=== PATIENT | female | born 1930 | race Caucasian/White ===

== ENCOUNTER 2016-09-01 19:50 | Inpatient (IN) | payer MEDICARE ==
[~2016-09-01] VITALS: Ht 157.5 cm; Wt 70.8 kg
[~2016-09-01 19:50] MED LIST: ASPI-482 PO; ASPI325T4 PO; DOCU-27 PO; Diltiazem Hcl PO; FERR-26 PO
[2016-09-01] MEDS ORDERED: IV NORMAL SALINE 500ML BAG 500 ML IV ONE (20:30)
[2016-09-01 20:56] LABS: BASO # 0.1 x10^3/uL (0.0-0.2); BASO % 2 % (0-3); EOS % 3 % (0-3); LYMPH # 0.6 x10^3/uL (1.0-4.8); LYMPH % 13 % (24-48); MEAN CORPUSCULAR HEMOGLOBIN 15 pg (25-35); MEAN CORPUSCULAR HGB CONC 28 g/dL (31-37); MEAN CORPUSCULAR VOLUME 53 fL (79-100); MONO % 16 % (0-9); NEUT % 66 % (31-73); PLATELET COUNT 287 x10^3/uL (140-400); RED BLOOD COUNT 2.34 x10^6/uL (3.50-5.40); RED CELL DISTRIBUTION WIDTH 20.4 % (11.5-14.5); WHITE BLOOD COUNT 4.5 x10^3/uL (4.0-11.0)
[2016-09-01 21:00] LABS: HEMATOCRIT 12.5 % (36.0-47.0); HEMOGLOBIN 3.4 g/dL (12.0-15.5)
[2016-09-01 21:04] LABS: CALCIUM 8.7 mg/dL (8.5-10.1); CREATININE 0.9 mg/dL (0.6-1.0); GFR 59.4; POTASSIUM 3.7 mmol/L (3.5-5.1)
[2016-09-01 21:10] LABS: ALBUMIN 3.1 g/dL (3.4-5.0); TOTAL BILIRUBIN 0.8 mg/dL (0.2-1.0); TOTAL PROTEIN 6.2 g/dL (6.4-8.2)
[2016-09-01] MEDS ORDERED: ACETAMINOPHEN 325 MG TABLET. PO PRN (21:15)
[2016-09-01] MEDS ORDERED: ONDANSETRON PF 4 MG/2 ML VIAL. IV PRN (21:15)
--- NOTE | 2016-09-01 21:29 | PHYS DOC ---
Past Medical History Past Medical History: Anemia Past Surgical History: Other Additional Past Surgical Histo: BILATERAL EYE CORRECTION Alcohol Use: None Drug Use: None Adult General Chief Complaint Chief Complaint: WEAKNESS/GENERALIZED HPI HPI 86-year-old female presents with several day history of progressive weakness and shortness of breath and dyspnea on exertion. She states the last couple days she just has not even felt like getting out of bed. She denies any melena or hematemesis. She denies any fever chills sweats cough or congestion. She is not had any chest pain nausea or vomiting.] Review of Systems Review of Systems Constitutional: Denies fever or chills [] Eyes: Denies change in visual acuity, redness, or eye pain [] HENT: Denies nasal congestion or sore throat [] Respiratory: Per history of present illness [] Cardiovascular: No additional information not addressed in HPI [] GI: Denies abdominal pain, nausea, vomiting, bloody stools or diarrhea [] : Denies dysuria or hematuria [] Musculoskeletal: Denies back pain or joint pain [] Integument: Denies rash or skin lesions [] Neurologic: Denies headache, focal weakness or sensory changes [] Endocrine: Denies polyuria or polydipsia [] Current Medications Current Medications Current Medications Medications (Trade) Dose Ordered Sig/Tu Start Time Stop Time Status Last Admin Dose Admin Acetaminophen (Tylenol) 650 mg PRN Q4HRS PRN 09/01/16 21:15 09/02/16 21:14 Ondansetron HCl (Zofran) 4 mg PRN Q8HRS PRN 09/01/16 21:15 09/02/16 21:14 Sodium Chloride (Iv Sodium Chloride 0.9% 500ml Bag) 500 ml @ 500 mls/hr 1X ONCE 09/01/16 20:30 09/01/16 21:29 09/01/16 20:38 500 MLS/HR Allergies Allergies Allergies Coded Allergies Type Severity Reaction Last Updated Verified No Known Drug Allergies 02/13/15 No Physical Exam Physical Exam Constitutional: Frail very pale, no acute distress, non-toxic appearance. [] HENT: Normocephalic, atraumatic, bilateral external ears normal, oropharynx moist, no oral exudates, nose normal. [] Eyes: PERRLA, EOMI, conjunctiva normal, no discharge. [] Neck: Normal range of motion, no tenderness, supple, no stridor. [] Cardiovascular:Heart rate regular rhythm, no murmur [] Lungs & Thorax: Bilateral breath sounds clear to auscultation [] Abdomen: Bowel sounds normal, soft, no tenderness, no masses, no pulsatile masses. [] Skin: Warm, dry, no erythema, no rash. [] Back: No tenderness, no CVA tenderness. [] Extremities: No tenderness, no cyanosis, no clubbing, ROM intact, no edema. [] Neurologic: Alert and oriented X 3, normal motor function, normal sensory function, no focal deficits noted. [] Psychologic: Depressed affect. [] Current Patient Data Vital Signs Vital Signs Date Time Temp Pulse Resp B/P Pulse Ox O2 Delivery O2 Flow Rate FiO2 09/01/16 20:04 97.9 100 16 134/58 100 Room Air 97.9 Lab Values Laboratory Tests Test 09/01/16 20:48 White Blood Count 4.5x10^3/uL (4.0-11.0) Red Blood Count 2.34x10^6/uL (3.50-5.40) L Hemoglobin 3.4g/dL (12.0-15.5) *L Hematocrit 12.5% (36.0-47.0) *L Mean Corpuscular Volume 53fL (79-100) L Mean Corpuscular Hemoglobin 15pg (25-35) L Mean Corpuscular Hemoglobin Concent 28g/dL (31-37) L Red Cell Distribution Width 20.4% (11.5-14.5) H Platelet Count 287x10^3/uL (140-400) Neutrophils (%) (Auto) 66% (31-73) Lymphocytes (%) (Auto) 13% (24-48) L Monocytes (%) (Auto) 16% (0-9) H Eosinophils (%) (Auto) 3% (0-3) Basophils (%) (Auto) 2% (0-3) Neutrophils # (Auto) 3.0x10^3uL (1.8-7.7) Lymphocytes # (Auto) 0.6x10^3/uL (1.0-4.8) L Monocytes # (Auto) 0.7x10^3/uL (0.0-1.1) Eosinophils # (Auto) 0.1x10^3/uL (0.0-0.7) Basophils # (Auto) 0.1x10^3/uL (0.0-0.2) Platelet Estimate Pending Sodium Level 144mmol/L (136-145) Potassium Level 3.7mmol/L (3.5-5.1) Chloride Level 104mmol/L (98-107) Carbon Dioxide Level 30mmol/L (21-32) Anion Gap 10 (6-14) Blood Urea Nitrogen 27mg/dL (7-20) H Creatinine 0.9mg/dL (0.6-1.0) Estimated GFR (Cockcroft-Gault) 59.4 BUN/Creatinine Ratio 30 (6-20) H Glucose Level 161mg/dL (70-99) H Calcium Level 8.7mg/dL (8.5-10.1) Total Bilirubin 0.8mg/dL (0.2-1.0) Aspartate Amino Transferase (AST) 9U/L (15-37) L Alanine Aminotransferase (ALT) 11U/L (14-59) L Alkaline Phosphatase 73U/L (46-116) Troponin I Quantitative 0.029ng/mL (0.000-0.055) Total Protein 6.2g/dL (6.4-8.2) L Albumin 3.1g/dL (3.4-5.0) L Albumin/Globulin Ratio 1.0 (1.0-1.7) Lipase 173U/L (73-393) Laboratory Tests 09/01/16 20:48 Laboratory Tests 09/01/16 20:48 EKG EKG [] Radiology/Procedures Radiology/Procedures [] Course & Med Decision Making Course & Med Decision Making Pertinent Labs and Imaging studies reviewed. (See chart for details) [ED course: Evaluation reveals an 86-year-old very pale female with a critically low hemoglobin and hematocrit. She was type and crossed for 2 units of packed red blood cells in the department and transfusion consents were signed. I spoke with Dr. Bruce who agreed to accept her for admission to the hospital to workup this critical hemoglobin and hematocrit. We will consult GI.. ] Dragon Disclaimer Dragon Disclaimer This electronic medical record was generated, in whole or in part, using a voice recognition dictation system. Departure Departure Impression: Primary Impression: Symptomatic anemia Disposition: ADMITTED INPATIENT Admitting Physician: Other (Reusch) Condition: GUARDED Referrals: UNKNOWN PCP NAME (PCP) CARON BOB DO Sep 01, 2016 21:29
[2016-09-01 21:50] LABS: PLT ESTIMATE ADEQUATE (ADEQUATE)
[2016-09-01 21:51] LABS: ANISOCYTOSIS MOD; HYPOCHROMIA MARKED; MICROCYTOSIS MARKED; OVALOCYTES FEW
[2016-09-01 21:52] LABS: POLYCHROMASIA SLIGHT
[2016-09-01 22:30] VITALS: BP 139/48
[2016-09-01 23:06] VITALS: BP 136/50
--- NOTE | 2016-09-01 23:37 | ACF ---
Admission Forms Criteria ANEMIA, IRON DEFICIENCY OR UNSPECIFIED Clinical Indications for Inpatient Care (Place 'X' for any and all applicable criteria): Admission is indicated for ANY ONE of the following(1)(2)(3)(4)(5)(6)(7): [X] I. Inpatient admission required rather than observation care (Also use Anemia, Iron Deficiency or Unspecified: Observation Care guideline as appropriate) because of ANY ONE of the following: [] a) Hemodynamic instability that is severe or persistent [] b) Active bleeding that cannot be rapidly controlled [X] c) CVS symptoms (i.e., dyspnea, chest pain, heart failure) that are severe or persistent [] d) Neurologic symptoms (i.e., cognitive impairment, recurrent syncope or near syncope) that are severe or persistent [] e) Cardiac arrhythmias of immediate concern [] f) Acute peripheral ischemia (e.g., pulseless, cool, mottled, or cyanotic extremity) [] g) High-risk low platelet count [] h) Acute renal failure [] i) Ongoing transfusion for blood loss (greater than 2 units) [] j) IV fluid to replace significant ongoing (eg, >24 hours) losses (> 3 L/m2 per day) [] k) Pulmonary artery catheter monitoring [] l) Supplemental oxygen or respiratory treatments for over 24 hours that are performable only in acute inpatient setting [] m) Immediate inpatient surgery [] n) Other condition, treatment or monitoring requiring inpatient admission [] II Active massive hemorrhage [] III. Active hemolysis with rapidly progressive anemia [A](6) Extended stay beyond goal length of stay may be needed for (17)(18) []a) Diagnosed cause of anemia requiring longer hospitalization (eg, active GI bleeding, immune hemolysis requiring electrophoresis, complications of malignancy requiring acute care []b) Continued emergent anemia indicators (23) []c) Transfusion reactions []d) Associated leukopenia or thrombocytopenia needing inpatient care []e) Active comorbidities (eg, renal failure, heart failure) The original [facility] Care Guidelines content created by [facility] Care Guidelines has been revised. The portions of the content which have been revised are identified through the use of italic text or in bold. [facility] Guidelines has neither reviewed nor approved the modified material. All other unmodified content is copyright [facility] Care Guidelines. Please see references footnoted in the original [facility] edition 2016 Admission Criteria Met?: Yes YONIS MAHARAJ Sep 01, 2016 23:37
[2016-09-02] VITALS (17 sets, daily range): BP systolic 119–155; BP diastolic 50–69
[2016-09-02 01:56] LABS: BILIRUBIN,URINE NEGATIVE (NEG); GLUCOSE,URINE NEGATIVE (NEG); NITRITE,URINE NEGATIVE (NEG); PROTEIN,URINE NEGATIVE (NEG-TRACE)
[2016-09-02 02:18] LABS: BACTERIA,URINE 0 /HPF (0-FEW); RBC,URINE OCC /HPF (0-2); SQUAMOUS EPITHELIAL CELL,UR FEW /LPF
--- NOTE | 2016-09-02 06:17 | EKG ---
[facility] [address] [place] [id number] Test Date: 2016-09-01 Test Time: 19:56:28 Pat Name: JUAN SILVA Department: Room: 2 Gender: F [employer] Staff: : [id number] Requested By: CARON BOB Order Number: [id number] Reading MD: Charo Strange Measurements Intervals [place] Rate: 87 P: WA: QRS: 8 QRSD: 78 T: -138 QT: 328 QTc: 395 Interpretive Statements ATRIAL FIBRILLATION LOW LIMB LEAD VOLTAGE ST & T ABNORMALITY, CONSIDER ANTEROLATERAL ISCHEMIA OR LEFT VENTRICULAR STRAIN T ABNORMALITY IN INFEROLATERAL LEADS Electronically Signed On 09-03-2016 21:40:47 CDT by Charo Strange
[2016-09-02 08:07] LABS: BASO # 0.1 x10^3/uL (0.0-0.2); BASO % 3 % (0-3); EOS % 5 % (0-3); LYMPH % 20 % (24-48); MEAN CORPUSCULAR HEMOGLOBIN 20 pg (25-35); MEAN CORPUSCULAR HGB CONC 31 g/dL (31-37); MEAN CORPUSCULAR VOLUME 64 fL (79-100); MONO % 18 % (0-9); NEUT % 55 % (31-73); PLATELET COUNT 252 x10^3/uL (140-400); RED BLOOD COUNT 3.15 x10^6/uL (3.50-5.40); RED CELL DISTRIBUTION WIDTH 32.2 % (11.5-14.5)
[2016-09-02 08:15] LABS: HEMATOCRIT 20.2 % (36.0-47.0); HEMOGLOBIN 6.2 g/dL (12.0-15.5)
--- NOTE | 2016-09-02 08:28 | RAD ---
Indication: Weakness. Technique: Upright portable chest radiograph was obtained and compared to a study from February 07, 2015. Findings: There has been development of a small to medium right pleural effusion with associated atelectasis or less likely infiltrate. There are may also be a pleural effusion on the left, may be loculated, small to medium in size. Please see prior CT chest from February 07, 2015. The heart is enlarged. There is no definite heart failure. Medium to large hiatal hernia is noted. There are mild degenerative changes in the shoulders, greater on the right. Leads overlie the patient. Impression: 1. Development of a small to medium sized right pleural effusion since prior exam. 2. Apparent loculated effusion on the left, similar in appearance to 2015. 3. Cardiomegaly.
--- NOTE | 2016-09-02 09:23 | PDOC2 ---
GI CONSULT Reason For Consult: Anemia HPI: HPI: 86 y/o female evaluated in ER for weakness and SOA/exertional dyspnea. Found to have Hgb 3.4, now 6.2 s/p transfusion. Denies GI complaints including n/v, decreased appetite, abd pain, diarrhea, constipation, hematochezia, or melena. Denies any home medications. She's a bit of a suspect historian it seems. Previous EGD by Dr. Aragon for anemia in 01/2015 showed hiatal hernia. She declined colonoscopy at that time but per office records has had previous colonoscopies w/ diverticulosis and internal hemorrhoids. Iron low in 2015 (w/ normal retic, B12, folate). PMH: PMH: from chart - A Fib, hypothyroidism, DVT, IVC filter, eye surgery FH: Family History: No pertinent hx Social History: Smoke: No ALCOHOL: none Drugs: None ROS: GEN: Denies fevers, chills, sweats HEENT: Denies blurred vision, sore throat CV: Denies chest pain RESP: +SOA GI: Per HPI : Denies hematuria, dysuria ENDO: Denies weight changes NEURO: Denies confusion, dizziness MSK: +weakness SKIN: Denies jaundice, pruritus VItals: Vitals: Vital Signs Date Time Temp Pulse Resp B/P Pulse Ox O2 Delivery O2 Flow Rate FiO2 09/02/16 07:15 96.6 71 16 155/52 95 Room Air 96.6 Labs: Labs: Laboratory Tests Test 09/01/16 20:48 09/02/16 01:15 09/02/16 06:50 White Blood Count 4.5x10^3/uL (4.0-11.0) 5.0x10^3/uL (4.0-11.0) Red Blood Count 2.34x10^6/uL (3.50-5.40) 3.15x10^6/uL (3.50-5.40) Hemoglobin 3.4g/dL (12.0-15.5) 6.2g/dL (12.0-15.5) Hematocrit 12.5% (36.0-47.0) 20.2% (36.0-47.0) Mean Corpuscular Volume 53fL (79-100) 64fL (79-100) Mean Corpuscular Hemoglobin 15pg (25-35) 20pg (25-35) Mean Corpuscular Hemoglobin Concent 28g/dL (31-37) 31g/dL (31-37) Red Cell Distribution Width 20.4% (11.5-14.5) 32.2% (11.5-14.5) Platelet Count 287x10^3/uL (140-400) 252x10^3/uL (140-400) Neutrophils (%) (Auto) 66% (31-73) 55% (31-73) Lymphocytes (%) (Auto) 13% (24-48) 20% (24-48) Monocytes (%) (Auto) 16% (0-9) 18% (0-9) Eosinophils (%) (Auto) 3% (0-3) 5% (0-3) Basophils (%) (Auto) 2% (0-3) 3% (0-3) Neutrophils # (Auto) 3.0x10^3uL (1.8-7.7) 2.8x10^3uL (1.8-7.7) Lymphocytes # (Auto) 0.6x10^3/uL (1.0-4.8) 1.0x10^3/uL (1.0-4.8) Monocytes # (Auto) 0.7x10^3/uL (0.0-1.1) 0.9x10^3/uL (0.0-1.1) Eosinophils # (Auto) 0.1x10^3/uL (0.0-0.7) 0.3x10^3/uL (0.0-0.7) Basophils # (Auto) 0.1x10^3/uL (0.0-0.2) 0.1x10^3/uL (0.0-0.2) Platelet Estimate Adequate (ADEQUATE) Polychromasia Slight Hypochromasia Marked Anisocytosis Mod Microcytosis Marked Macrocytosis Slight Ovalocytes Few Sodium Level 144mmol/L (136-145) Potassium Level 3.7mmol/L (3.5-5.1) Chloride Level 104mmol/L (98-107) Carbon Dioxide Level 30mmol/L (21-32) Anion Gap 10 (6-14) Blood Urea Nitrogen 27mg/dL (7-20) Creatinine 0.9mg/dL (0.6-1.0) Estimated GFR (Cockcroft-Gault) 59.4 BUN/Creatinine Ratio 30 (6-20) Glucose Level 161mg/dL (70-99) Calcium Level 8.7mg/dL (8.5-10.1) Total Bilirubin 0.8mg/dL (0.2-1.0) Aspartate Amino Transf (AST/SGOT) 9U/L (15-37) Alanine Aminotransferase (ALT/SGPT) 11U/L (14-59) Alkaline Phosphatase 73U/L (46-116) Troponin I Quantitative 0.029ng/mL (0.000-0.055) Total Protein 6.2g/dL (6.4-8.2) Albumin 3.1g/dL (3.4-5.0) Albumin/Globulin Ratio 1.0 (1.0-1.7) Lipase 173U/L (73-393) Urine Collection Type Unknown Urine Color Yellow Urine Clarity Clear Urine pH 5.0 Urine Specific [place] 1.015 Urine Protein Negativemg/dL (NEG-TRACE) Urine Glucose (UA) Negativemg/dL (NEG) Urine Ketones (Stick) Negativemg/dL (NEG) Urine Blood Small (NEG) Urine Nitrite Negative (NEG) Urine Bilirubin Negative (NEG) Urine Urobilinogen Dipstick 1.0mg/dL (0.2 mg/dL) Urine Leukocyte Esterase Small (NEG) Urine RBC Occ/HPF (0-2) Urine WBC 1-4/HPF (0-4) Urine Squamous Epithelial Cells Few/LPF Urine Bacteria 0/HPF (0-FEW) Urine Hyaline Casts Few/HPF Urine Mucus Mod/LPF Allergies: Coded Allergies: No Known Drug Allergies (Unverified , 02/13/15) Medications: Current Medications Medications (Trade) Dose Ordered Sig/Tu Route PRN Reason Start Time Stop Time Status Last Admin Dose Admin Sodium Chloride (Iv Sodium Chloride 0.9% 500ml Bag) 500 ml @ 500 mls/hr 1X ONCE IV 09/01/16 20:30 09/01/16 21:29 DC 09/01/16 20:38 Imaging: Imaging: CXR 09/01/16 Impression: 1. Development of a small to medium sized right pleural effusion since prior exam. 2. Apparent loculated effusion on the left, similar in appearance to 2015. 3. Cardiomegaly. CT A/P 2015 IMPRESSION: 1. Small amount of hyperdense material in the stomach. Please see above discussion. If there is clinical suspicion for bleed, correlation with endoscopy may be useful. 2. Porcelain gallbladder. 3. Mild sigmoid colon diverticulosis, no evidence of diverticulitis. 4. Other ancillary findings as above. PE: GEN: NAD, sitting up in bed eating breakfast HEENT: atraumatic LUNGS: clear anteriorly HEART: S1S2 ABD: NABS, S/ND/NT, no masses EXTREMITY: No edema SKIN: No rashes, no jaundice NEURO/PSYCH: probably a little confused, poor historian A/P: A/P: Anemia -admitting Hgb 3.4 -previous EGD and colonoscopy unrevealing -denies obvious bleeding ?dementia -- ?AVMs Empiric PPI. Will check bleeding scan and additional labs. D/w RN - another transfusion planned. PORTILLO BARNARD Sep 02, 2016 09:23
--- NOTE | 2016-09-02 09:57 | PDOC1 ---
History and Physical Past Surgical History Past Surgical History: Cataract Removal Family History Family History: Other Social History Smoke: No ALCOHOL: none Drugs: None Current Problem List Problem List Problems Medical Problems: (1) Symptomatic anemia Status: Acute Current Medications Current Medications Current Medications Medications (Trade) Dose Ordered Sig/Tu Start Time Stop Time Status Last Admin Dose Admin Acetaminophen (Tylenol) 650 mg PRN Q4HRS PRN 09/01/16 21:15 09/02/16 21:14 Ondansetron HCl (Zofran) 4 mg PRN Q8HRS PRN 09/01/16 21:15 09/02/16 21:14 Pantoprazole Sodium (Protonix) 40 mg DAILYAC 09/02/16 10:30 Sodium Chloride (Iv Sodium Chloride 0.9% 500ml Bag) 500 ml @ 500 mls/hr 1X ONCE 09/01/16 20:30 09/01/16 21:29 DC 09/01/16 20:38 500 MLS/HR Allergies Allergies Allergies Coded Allergies Type Severity Reaction Last Updated Verified No Known Drug Allergies 02/13/15 No ROS Review of System CONSTITUTIONAL: No fever or chills, weakness. EYES: No recent changes SKIN: No rash or itching CARDIOVASCULAR: sob RESPIRATORY: SOB GASTROINTESTINAL: No nausea, vomiting or abdominal pain NEUROLOGICAL: No headaches or weakness ENDOCRINE: No cold or heat intolerance GENITOURINARY: No urgency or frequency of urination MUSCULOSKELETAL: No back pain or joint pain LYMPHATICS: No enlarged lymph nodes PSYCHIATRIC: No anxiety or depression Physical Exam Physical Exam GEN.: apparent distress. Alert and oriented HEENT: Head is normocephalic, atraumatic NECK: Supple. no jvd LUNGS: Clear to auscultation. normal airflow anterior HEART: Tachycardia, systolic murmur ABDOMEN: Soft, nontender. Positive bowel sounds. EXTREMITIES: Without any cyanosis. NEUROLOGIC: Normal speech, normal tone, not able to understand severity of her symptoms PSYCHIATRIC: SKIN: No visible skin lesions Vitals Vitals Vital Signs Date Time Temp Pulse Resp B/P Pulse Ox O2 Delivery O2 Flow Rate FiO2 09/02/16 07:15 96.6 71 16 155/52 95 Room Air 96.6 Labs Labs Laboratory Tests Test 09/01/16 20:48 09/02/16 01:15 09/02/16 06:50 White Blood Count 4.5x10^3/uL (4.0-11.0) 5.0x10^3/uL (4.0-11.0) Red Blood Count 2.34x10^6/uL (3.50-5.40) 3.15x10^6/uL (3.50-5.40) Hemoglobin 3.4g/dL (12.0-15.5) 6.2g/dL (12.0-15.5) Hematocrit 12.5% (36.0-47.0) 20.2% (36.0-47.0) Mean Corpuscular Volume 53fL (79-100) 64fL (79-100) Mean Corpuscular Hemoglobin 15pg (25-35) 20pg (25-35) Mean Corpuscular Hemoglobin Concent 28g/dL (31-37) 31g/dL (31-37) Red Cell Distribution Width 20.4% (11.5-14.5) 32.2% (11.5-14.5) Platelet Count 287x10^3/uL (140-400) 252x10^3/uL (140-400) Neutrophils (%) (Auto) 66% (31-73) 55% (31-73) Lymphocytes (%) (Auto) 13% (24-48) 20% (24-48) Monocytes (%) (Auto) 16% (0-9) 18% (0-9) Eosinophils (%) (Auto) 3% (0-3) 5% (0-3) Basophils (%) (Auto) 2% (0-3) 3% (0-3) Neutrophils # (Auto) 3.0x10^3uL (1.8-7.7) 2.8x10^3uL (1.8-7.7) Lymphocytes # (Auto) 0.6x10^3/uL (1.0-4.8) 1.0x10^3/uL (1.0-4.8) Monocytes # (Auto) 0.7x10^3/uL (0.0-1.1) 0.9x10^3/uL (0.0-1.1) Eosinophils # (Auto) 0.1x10^3/uL (0.0-0.7) 0.3x10^3/uL (0.0-0.7) Basophils # (Auto) 0.1x10^3/uL (0.0-0.2) 0.1x10^3/uL (0.0-0.2) Platelet Estimate Adequate (ADEQUATE) Polychromasia Slight Hypochromasia Marked Anisocytosis Mod Microcytosis Marked Macrocytosis Slight Ovalocytes Few Sodium Level 144mmol/L (136-145) Potassium Level 3.7mmol/L (3.5-5.1) Chloride Level 104mmol/L (98-107) Carbon Dioxide Level 30mmol/L (21-32) Anion Gap 10 (6-14) Blood Urea Nitrogen 27mg/dL (7-20) Creatinine 0.9mg/dL (0.6-1.0) Estimated GFR (Cockcroft-Gault) 59.4 BUN/Creatinine Ratio 30 (6-20) Glucose Level 161mg/dL (70-99) Calcium Level 8.7mg/dL (8.5-10.1) Total Bilirubin 0.8mg/dL (0.2-1.0) Aspartate Amino Transf (AST/SGOT) 9U/L (15-37) Alanine Aminotransferase (ALT/SGPT) 11U/L (14-59) Alkaline Phosphatase 73U/L (46-116) Troponin I Quantitative 0.029ng/mL (0.000-0.055) Total Protein 6.2g/dL (6.4-8.2) Albumin 3.1g/dL (3.4-5.0) Albumin/Globulin Ratio 1.0 (1.0-1.7) Lipase 173U/L (73-393) Urine Collection Type Unknown Urine Color Yellow Urine Clarity Clear Urine pH 5.0 Urine Specific [place] 1.015 Urine Protein Negativemg/dL (NEG-TRACE) Urine Glucose (UA) Negativemg/dL (NEG) Urine Ketones (Stick) Negativemg/dL (NEG) Urine Blood Small (NEG) Urine Nitrite Negative (NEG) Urine Bilirubin Negative (NEG) Urine Urobilinogen Dipstick 1.0mg/dL (0.2 mg/dL) Urine Leukocyte Esterase Small (NEG) Urine RBC Occ/HPF (0-2) Urine WBC 1-4/HPF (0-4) Urine Squamous Epithelial Cells Few/LPF Urine Bacteria 0/HPF (0-FEW) Urine Hyaline Casts Few/HPF Urine Mucus Mod/LPF Laboratory Tests Test 09/01/16 20:48 09/02/16 01:15 09/02/16 06:50 White Blood Count 4.5x10^3/uL (4.0-11.0) 5.0x10^3/uL (4.0-11.0) Red Blood Count 2.34x10^6/uL (3.50-5.40) 3.15x10^6/uL (3.50-5.40) Hemoglobin 3.4g/dL (12.0-15.5) 6.2g/dL (12.0-15.5) Hematocrit 12.5% (36.0-47.0) 20.2% (36.0-47.0) Mean Corpuscular Volume 53fL (79-100) 64fL (79-100) Mean Corpuscular Hemoglobin 15pg (25-35) 20pg (25-35) Mean Corpuscular Hemoglobin Concent 28g/dL (31-37) 31g/dL (31-37) Red Cell Distribution Width 20.4% (11.5-14.5) 32.2% (11.5-14.5) Platelet Count 287x10^3/uL (140-400) 252x10^3/uL (140-400) Neutrophils (%) (Auto) 66% (31-73) 55% (31-73) Lymphocytes (%) (Auto) 13% (24-48) 20% (24-48) Monocytes (%) (Auto) 16% (0-9) 18% (0-9) Eosinophils (%) (Auto) 3% (0-3) 5% (0-3) Basophils (%) (Auto) 2% (0-3) 3% (0-3) Neutrophils # (Auto) 3.0x10^3uL (1.8-7.7) 2.8x10^3uL (1.8-7.7) Lymphocytes # (Auto) 0.6x10^3/uL (1.0-4.8) 1.0x10^3/uL (1.0-4.8) Monocytes # (Auto) 0.7x10^3/uL (0.0-1.1) 0.9x10^3/uL (0.0-1.1) Eosinophils # (Auto) 0.1x10^3/uL (0.0-0.7) 0.3x10^3/uL (0.0-0.7) Basophils # (Auto) 0.1x10^3/uL (0.0-0.2) 0.1x10^3/uL (0.0-0.2) Platelet Estimate Adequate (ADEQUATE) Polychromasia Slight Hypochromasia Marked Anisocytosis Mod Microcytosis Marked Macrocytosis Slight Ovalocytes Few Sodium Level 144mmol/L (136-145) Potassium Level 3.7mmol/L (3.5-5.1) Chloride Level 104mmol/L (98-107) Carbon Dioxide Level 30mmol/L (21-32) Anion Gap 10 (6-14) Blood Urea Nitrogen 27mg/dL (7-20) Creatinine 0.9mg/dL (0.6-1.0) Estimated GFR (Cockcroft-Gault) 59.4 BUN/Creatinine Ratio 30 (6-20) Glucose Level 161mg/dL (70-99) Calcium Level 8.7mg/dL (8.5-10.1) Total Bilirubin 0.8mg/dL (0.2-1.0) Aspartate Amino Transf (AST/SGOT) 9U/L (15-37) Alanine Aminotransferase (ALT/SGPT) 11U/L (14-59) Alkaline Phosphatase 73U/L (46-116) Troponin I Quantitative 0.029ng/mL (0.000-0.055) Total Protein 6.2g/dL (6.4-8.2) Albumin 3.1g/dL (3.4-5.0) Albumin/Globulin Ratio 1.0 (1.0-1.7) Lipase 173U/L (73-393) Urine Collection Type Unknown Urine Color Yellow Urine Clarity Clear Urine pH 5.0 Urine Specific [place] 1.015 Urine Protein Negativemg/dL (NEG-TRACE) Urine Glucose (UA) Negativemg/dL (NEG) Urine Ketones (Stick) Negativemg/dL (NEG) Urine Blood Small (NEG) Urine Nitrite Negative (NEG) Urine Bilirubin Negative (NEG) Urine Urobilinogen Dipstick 1.0mg/dL (0.2 mg/dL) Urine Leukocyte Esterase Small (NEG) Urine RBC Occ/HPF (0-2) Urine WBC 1-4/HPF (0-4) Urine Squamous Epithelial Cells Few/LPF Urine Bacteria 0/HPF (0-FEW) Urine Hyaline Casts Few/HPF Urine Mucus Mod/LPF VTE Prophylaxis Ordered VTE Prophylaxis Devices: No VTE Pharmacological Prophylaxi: No TANNA MIR MD Sep 02, 2016 09:57
[2016-09-02 10:08] LABS: % SAT IRON 6 % (15-34); IRON,SERUM 26 ug/dL (50-170)
[2016-09-02 11:49] LABS: FOLATE 9.17 ng/ml (3.2-20.0)
--- NOTE | 2016-09-02 12:32 | PDOC2 ---
MARY BLUE SR. LOGISTICS ANALYST 09/02/16 1232: CARDIAC CONSULT DATE OF CONSULT Date of Consult DATE: 09/02/16 TIME: 12:32 REASON FOR CONSULT Reason for Consult: v tach HISTORY OF PRESENT ILLNESS HISTORY OF PRESENT ILLNESS Ms Bradley is an 86 year old female with history of atrial fibrillation, and severe anemia. She is a poor historian, reporting negative medical history. Past history is obtained from the medical record. She presented to the ED with complaints of progressive dyspnea and fatigue over the last several months. On evaluation it was noted that her Hgb was 3.4. She was admitted for evaluation and treatment. Telemetry monitoring revealed a 17 beat run of NSVT so consult was called. She denies any chest discomfort. She reports dyspnea is getting better since getting blood. She denies congestive symptoms. She also denies any medical problems and states she takes no home medications. PAST MEDICAL HISTORY Past Medical History atrial fibrillation, diastolic heart failure, DVT, severe anemia, iron deficiency, hypothyroidism She apparently refused any endoscopies during her admission in 2014 for similar complaints. PAST SURGICAL HISTORY Past Surgical History cataracts, IVC filter FAMILY HISTORY Family History non contributory due to age SOCIAL HISTORY Social History non smoker, no illicit drugs or significant ETOH CURRENT MEDICATIONS CURRENT MEDICATIONS Current Medications Medications (Trade) Dose Ordered Sig/Tu Route PRN Reason Start Time Stop Time Status Last Admin Dose Admin Sodium Chloride (Iv Sodium Chloride 0.9% 500ml Bag) 500 ml @ 500 mls/hr 1X ONCE IV 09/01/16 20:30 09/01/16 21:29 DC 09/01/16 20:38 ALLERGIES ALLERGIES: Coded Allergies: No Known Drug Allergies (Unverified , 02/13/15) ROS Review of System as per HPI, otherwise she denies complaints. PHYSICAL EXAM General: Alert, Cooperative, mild distress HEENT: Atraumatic, EOMI Lungs: Other (decreased with occasional exp wheeze) Heart: Other (irregular rate and rhythm without gallops, clicks or rubs. No obvious murmurs. ) Abdomen: Normal bowel sounds, Soft, No tenderness Extremities: No cyanosis, Normal pulses Neuro: Normal speech Psych/Mental Status: Mood NL VITALS VITALS Vital Signs Date Time Temp Pulse Resp B/P Pulse Ox O2 Delivery O2 Flow Rate FiO2 09/02/16 11:40 96.7 77 19 125/58 96.7 09/02/16 11:07 97 Room Air LABS Lab: Laboratory Tests Test 09/01/16 20:48 09/02/16 01:15 09/02/16 06:50 White Blood Count 4.5x10^3/uL (4.0-11.0) 5.0x10^3/uL (4.0-11.0) Red Blood Count 2.34x10^6/uL (3.50-5.40) 3.15x10^6/uL (3.50-5.40) Hemoglobin 3.4g/dL (12.0-15.5) 6.2g/dL (12.0-15.5) Hematocrit 12.5% (36.0-47.0) 20.2% (36.0-47.0) Mean Corpuscular Volume 53fL (79-100) 64fL (79-100) Mean Corpuscular Hemoglobin 15pg (25-35) 20pg (25-35) Mean Corpuscular Hemoglobin Concent 28g/dL (31-37) 31g/dL (31-37) Red Cell Distribution Width 20.4% (11.5-14.5) 32.2% (11.5-14.5) Platelet Count 287x10^3/uL (140-400) 252x10^3/uL (140-400) Neutrophils (%) (Auto) 66% (31-73) 55% (31-73) Lymphocytes (%) (Auto) 13% (24-48) 20% (24-48) Monocytes (%) (Auto) 16% (0-9) 18% (0-9) Eosinophils (%) (Auto) 3% (0-3) 5% (0-3) Basophils (%) (Auto) 2% (0-3) 3% (0-3) Neutrophils # (Auto) 3.0x10^3uL (1.8-7.7) 2.8x10^3uL (1.8-7.7) Lymphocytes # (Auto) 0.6x10^3/uL (1.0-4.8) 1.0x10^3/uL (1.0-4.8) Monocytes # (Auto) 0.7x10^3/uL (0.0-1.1) 0.9x10^3/uL (0.0-1.1) Eosinophils # (Auto) 0.1x10^3/uL (0.0-0.7) 0.3x10^3/uL (0.0-0.7) Basophils # (Auto) 0.1x10^3/uL (0.0-0.2) 0.1x10^3/uL (0.0-0.2) Platelet Estimate Adequate (ADEQUATE) Polychromasia Slight Hypochromasia Marked Anisocytosis Mod Microcytosis Marked Macrocytosis Slight Ovalocytes Few Sodium Level 144mmol/L (136-145) Potassium Level 3.7mmol/L (3.5-5.1) Chloride Level 104mmol/L (98-107) Carbon Dioxide Level 30mmol/L (21-32) Anion Gap 10 (6-14) Blood Urea Nitrogen 27mg/dL (7-20) Creatinine 0.9mg/dL (0.6-1.0) Estimated GFR (Cockcroft-Gault) 59.4 BUN/Creatinine Ratio 30 (6-20) Glucose Level 161mg/dL (70-99) Calcium Level 8.7mg/dL (8.5-10.1) Total Bilirubin 0.8mg/dL (0.2-1.0) Aspartate Amino Transf (AST/SGOT) 9U/L (15-37) Alanine Aminotransferase (ALT/SGPT) 11U/L (14-59) Alkaline Phosphatase 73U/L (46-116) Troponin I Quantitative 0.029ng/mL (0.000-0.055) Total Protein 6.2g/dL (6.4-8.2) Albumin 3.1g/dL (3.4-5.0) Albumin/Globulin Ratio 1.0 (1.0-1.7) Lipase 173U/L (73-393) Urine Collection Type Unknown Urine Color Yellow Urine Clarity Clear Urine pH 5.0 Urine Specific [place] 1.015 Urine Protein Negativemg/dL (NEG-TRACE) Urine Glucose (UA) Negativemg/dL (NEG) Urine Ketones (Stick) Negativemg/dL (NEG) Urine Blood Small (NEG) Urine Nitrite Negative (NEG) Urine Bilirubin Negative (NEG) Urine Urobilinogen Dipstick 1.0mg/dL (0.2 mg/dL) Urine Leukocyte Esterase Small (NEG) Urine RBC Occ/HPF (0-2) Urine WBC 1-4/HPF (0-4) Urine Squamous Epithelial Cells Few/LPF Urine Bacteria 0/HPF (0-FEW) Urine Hyaline Casts Few/HPF Urine Mucus Mod/LPF Reticulocyte Count (auto) 2.1% (0.5-2.5) Iron Level 26ug/dL (50-170) Total Iron Binding Capacity 429ug/dL (250-450) Iron Saturation 6% (15-34) Vitamin B12 Level 348pg/mL (247-911) Serum Folate 9.17ng/ml (3.2-20.0) IMAGES IMAGES cxr - Impression: 1. Development of a small to medium sized right pleural effusion since prior exam. 2. Apparent loculated effusion on the left, similar in appearance to 2015. 3. Cardiomegaly. EKG EKG unavailable Tele - atrial fibrillation with CVR, 17 beats WCT, prob NSVT, 1 episode ECHOCARDIOGRAM ECHOCARDIOGRAM 02/09/15 The left ventricular systolic function is normal. The ejection fraction is estimated at 55%. There is normal LV segmental wall motion. The left atrium is mildly dilated. Doppler and Color Flow revealed trace aortic regurgitation. Doppler and Color-flow revealed mild to moderate mitral regurgitation. Doppler and Color Flow revealed moderate tricuspid regurgitation. There is mild pulmonary hypertension. The PA pressure was estimated at 44 mmHg. There is no evidence of significant pericardial effusion. ASSESSMENT/PLAN ASSESSMENT/PLAN 1. NSVT - likely secondary to profound anemia. LV function normal by echo in Jan 2015. Will repeat. Continue to monitor and hgb correction per PCP/GI. Check Mg and repeat K+. 2. chronic atrial fibrillation, rate controlled. poor anticoagulation candidate. 3. profound anemia - receiving PRBCs. Consider IV lasix after units. 4. prior DVT - s/p IVC filter Problems: KADEN HARP MD 09/02/16 9831: CARDIAC CONSULT ALLERGIES ALLERGIES: Coded Allergies: No Known Drug Allergies (Unverified , 02/13/15) ASSESSMENT/PLAN ASSESSMENT/PLAN Pt. seen and examined. Agree with above [employer] MACHINE HELPER note. 86 y.o with profound anemia. normal cardiac exam. labs reviewed, hgb improving with PRBCs Pt. has fatigue, no chest pain. NSVT is likely secondary. Will check echo prior to DC Will follow peripherally. thanks for consult. Problems: MARY BLUE APRN Sep 02, 2016 12:32 KADEN HARP MD Sep 02, 2016 22:48
[2016-09-02] MEDS: PANTOPRAZOLE 40 MG TABLET. PO SCH (12:56)
--- NOTE | 2016-09-02 15:22 | RAD ---
Radionuclide GI bleeding scan, 09/02/2016: History: Low hemoglobin The study was performed utilizing 31 mCi of technetium 99m and a labeled red blood cell technique. Imaging obtained out to one hour showed no abnormal accumulation of activity in the abdomen or pelvis to suggest active bleeding. IMPRESSION: Negative radionuclide GI bleeding scan
--- NOTE | 2016-09-02 15:26 | PDOC ---
Provider Note Provider Note Onc consult dictated- [id number] Severe microcytic anemia with iron def since 2014, melena per pt- Consider GI source, repeat endoscopies. IV iron ordered. Hemoglobin electrophoresis ordered as well. Doubt underlying bone marrow d/f given nml WBC, plt, chronicity. CONNOR SANFORD DO Sep 02, 2016 15:26
[2016-09-02] MEDS ORDERED: IRON SUCROSE COMPLEX 500 MG in IV NORMAL SALINE 250ML 250 ML IV ONE (16:00)
[2016-09-02 17:34] LABS: MAGNESIUM 1.9 mg/dL (1.8-2.4); POTASSIUM 3.9 mmol/L (3.5-5.1)
--- NOTE | 2016-09-03 02:43 | CONS ---
DATE OF CONSULTATION: 09/02/2016 HEMATOLOGY CONSULTATION REFERRING PROVIDER: Dr. Dumont. REASON FOR CONSULTATION: Anemia. HISTORY OF PRESENT ILLNESS: The patient is an 86-year-old female who presented to the hospital on the 09/01/2016 with severe anemia, hemoglobin 3.4. She has been transfused 3 units of blood with a rise in her hemoglobin to 6.2. In review of our medical record 2 years ago in 01/2015, she presented with severe anemia, hemoglobin of 4.0. Per review of the GI notes, she underwent endoscopy, which was unremarkable at that time. She states that she does eat a variety of fruits and vegetables and meats. She is not chronically on oral iron. She presented with severe weakness, dizziness, fatigue. She has noted melanotic stools, but cannot give me an exact duration of time. Her symptoms are improved after undergoing transfusion yesterday. MCV noted to be low at 53. Iron studies also return low. B12 and folic acid are normal. Reticulocyte count 2.1. PAST MEDICAL HISTORY: Atrial fibrillation, hiatal hernia, significant anemia in 2014. Per chart review she has had a DVT but she denies this or IC filter placement. PAST SURGICAL HISTORY: Per chart review, IVC filter replacement. She states that she has only had eye surgery as a child. FAMILY HISTORY: Noncontributory with her advanced age. SOCIAL HISTORY: No tobacco, alcohol or drug use. Lives with her son. ALLERGIES: No known drug allergies. CURRENT MEDICATIONS: Pantoprazole, Tylenol, and Zofran. REVIEW OF SYSTEMS: Ten point review of systems completed and unremarkable with the exception of that mentioned in the HPI. PHYSICAL EXAMINATION: VITAL SIGNS: Temperature 97.9, pulse 73, respiratory rate 24, blood pressure 133/62, 97% O2 on room air. GENERAL: She is alert and oriented. She appears very fatigued. She is in no distress at this time, but lays very calmly without any movement. HEENT: Extraocular muscles are intact. Sclerae are without icterus. Mucous membranes are dry. CARDIOVASCULAR: Heart is regular in rhythm and rate. LUNGS: Clear to auscultation bilaterally. ABDOMEN: Soft, nontender. EXTREMITIES: 1+ edema bilateral lower extremities. NEUROLOGIC: No focal cranial deficits. IMAGING AND LABS: Pertinent lab findings thus far reviewed as above. Chest x-ray showed cardiomegaly, small right pleural effusions and an unchanged left loculated effusion, which has been present since 2015. ASSESSMENT AND PLAN: The patient is an 86-year-old female with the following medical problems: 1. Chronic microcytic anemia since 2015 with ongoing iron deficiency anemia. Her MCV is quite impressive so I will also draw a hemoglobin electrophoresis to see if she has any thalassemia traits or other etiologies which could decrease both her hemoglobin and MCV baseline. GI has been consulted. Today, the patient is more alert and she states that she has had melanotic stools for unknown length of time. Though she had an unremarkable colonoscopy/EGD per review of GI notes in 2015, I believe it would likely be important to consider repeating this study given the severity of her anemia. I do not believe she has an underlying bone marrow disorder given the microcytic nature with obvious low iron level. Her WBC and platelet count are also normal. I have added on haptoglobin, hepatitis panel and TSH. I have ordered 500 mg of Venofer for both today and tomorrow. She would ideally be discharged on oral iron if she can tolerate it. Thank you for allowing me to participate in her care. I discussed this information with GI physician respiratory assistant, Nga Truong. CONNOR SANFORD DO DR: BRANDEN/jen JOB#: [id number] / [id number] STACY
[2016-09-03 03:52] VITALS: BP 142/69
[2016-09-03 07:00] VITALS: BP 141/61
[2016-09-03] MEDS: PANTOPRAZOLE 40 MG TABLET. PO SCH (07:30)
--- NOTE | 2016-09-03 08:41 | HP ---
ADMIT DATE: 09/01/2016 CHIEF COMPLAINT: Shortness of breath. HISTORY OF PRESENT ILLNESS: An 86-year-old female patient with a prior history of DVT, AFib, and severe anemia, iron deficient, who presented to the ER with complaints of shortness of breath, which has been there for a few weeks, progressively getting worse. Upon arrival to the ER, her hemoglobin was 3.4. I did review her old records, the patient had severe anemia in the past. She received 2 units of PRBC by the time I saw her and the patient says that her symptoms have been improving; however, she still has some shortness of breath. She denies any hematemesis, hemoptysis, hematochezia, or any lower GI bleeding. The patient is a poor historian and most of the history is obtained from the old records. No family members available. PAST MEDICAL HISTORY: AFib; congestive heart failure, diastolic; DVT; severe anemia; iron deficiency and hypothyroidism. PAST SURGICAL HISTORY: IVC filter placement. FAMILY HISTORY: No anemia in the family. SOCIAL HISTORY: Lives with her son. No smoking, no alcohol, and no drug abuse. ALLERGIES: NKDA. REVIEW OF SYSTEMS: Please see my electronic H and P. PHYSICAL EXAMINATION: Please see my electronic H and P. LABORATORY DATA: Sodium 144, potassium 3.7, chloride 104, carbon dioxide 30, anion gap 10, BUN is 27, creatinine is 1.9, calcium is 161, total bilirubin is 0.8, AST is 9, ALT is 11, alkaline phosphatase 73, and troponin 0.29. Hematology: WBC is 4.5, RBC 2.34, hemoglobin is 3.4, hematocrit 12.5, platelets 287, MCV is 53, MCH is 15, and MCHC 28. Hemoglobin improved to 6.2 with transfusion. Urine clarity is clear, pH is 5.0, specific gravity 1.015 and ketones negative, nitrites negative, and bilirubin negative. IMAGING STUDIES: Chest x-ray: [id number]-sized right pleural effusion, apparent loculated pleural effusion in the left, cardiomegaly. ASSESSMENT AND PLAN: 1. Acute, severe symptomatic anemia, [id number]. 2. Nonsustained ventricular tachycardia. 3. Chronic atrial fibrillation. 4. Prior history of deep venous thrombosis. 5. Physical debility. PLAN: 1. She has been admitted to the hospital for blood transfusions. She received 2 units and we will order two more units of PRBC. 2. We will also order iron profile. 3. The patient declined to have colonoscopy and EGD. She was followed by Dr. Aragon in the past. I will consult Gastroenterology, awaiting their recommendations. 4. Consult Hematology/Oncology for further workup. Iron profile has been ordered. 5. Questionable malignancy given her age is a possible option. 6. Physical therapy and occupational therapy. 7. Gastroenterology has been considering a GI bleed scan. 8. Monitor hemoglobin closely. 9. Cardiology consultation has been placed. Continue telemetry. The patient had mild tachycardia attributed to severe anemia. 10. Prognosis is guarded. TANNA MIR MD DR: ALEXIS/jen JOB#: [id number] / [id number] TIANAD
--- NOTE | 2016-09-03 10:33 | PDOC ---
PROGRESS NOTES Chief Complaint Chief Complaint 1. Acute, severe symptomatic anemia, [id number]. 2. Nonsustained ventricular tachycardia. 3. Chronic atrial fibrillation. 4. Prior history of deep venous thrombosis. 5. Physical debility. Plan hemoglobin improved with Transfusion Pt declined to have endoscopies, [id number] Follow up with PCP and Dr Lisa Sanchez. Vitals Vitals Vital Signs Date Time Temp Pulse Resp B/P Pulse Ox O2 Delivery O2 Flow Rate FiO2 09/03/16 07:00 97.8 77 16 141/61 92 Room Air 97.8 09/03/16 03:52 95.0 Physical Exam General: Alert, Oriented X3, Cooperative, mild distress Heart: Normal S1, Normal S2, Other Abdomen: Normal bowel sounds, Soft, No tenderness Extremities: No cyanosis, Normal pulses Assessment and Plan Assessmemt and Plan Problems Medical Problems: (1) Symptomatic anemia Status: Acute Problems: Comment Review of Relevant I have reviewed the following items lavern (where applicable) has been applied. Labs Laboratory Tests Test 09/01/16 20:48 09/02/16 01:15 09/02/16 06:50 White Blood Count 4.5x10^3/uL (4.0-11.0) 5.0x10^3/uL (4.0-11.0) Red Blood Count 2.34x10^6/uL (3.50-5.40) 3.15x10^6/uL (3.50-5.40) Hemoglobin 3.4g/dL (12.0-15.5) 6.2g/dL (12.0-15.5) Hematocrit 12.5% (36.0-47.0) 20.2% (36.0-47.0) Mean Corpuscular Volume 53fL (79-100) 64fL (79-100) Mean Corpuscular Hemoglobin 15pg (25-35) 20pg (25-35) Mean Corpuscular Hemoglobin Concent 28g/dL (31-37) 31g/dL (31-37) Red Cell Distribution Width 20.4% (11.5-14.5) 32.2% (11.5-14.5) Platelet Count 287x10^3/uL (140-400) 252x10^3/uL (140-400) Neutrophils (%) (Auto) 66% (31-73) 55% (31-73) Lymphocytes (%) (Auto) 13% (24-48) 20% (24-48) Monocytes (%) (Auto) 16% (0-9) 18% (0-9) Eosinophils (%) (Auto) 3% (0-3) 5% (0-3) Basophils (%) (Auto) 2% (0-3) 3% (0-3) Neutrophils # (Auto) 3.0x10^3uL (1.8-7.7) 2.8x10^3uL (1.8-7.7) Lymphocytes # (Auto) 0.6x10^3/uL (1.0-4.8) 1.0x10^3/uL (1.0-4.8) Monocytes # (Auto) 0.7x10^3/uL (0.0-1.1) 0.9x10^3/uL (0.0-1.1) Eosinophils # (Auto) 0.1x10^3/uL (0.0-0.7) 0.3x10^3/uL (0.0-0.7) Basophils # (Auto) 0.1x10^3/uL (0.0-0.2) 0.1x10^3/uL (0.0-0.2) Platelet Estimate Adequate (ADEQUATE) Polychromasia Slight Hypochromasia Marked Anisocytosis Mod Microcytosis Marked Macrocytosis Slight Ovalocytes Few Sodium Level 144mmol/L (136-145) Potassium Level 3.7mmol/L (3.5-5.1) 3.9mmol/L (3.5-5.1) Chloride Level 104mmol/L (98-107) Carbon Dioxide Level 30mmol/L (21-32) Anion Gap 10 (6-14) Blood Urea Nitrogen 27mg/dL (7-20) Creatinine 0.9mg/dL (0.6-1.0) Estimated GFR (Cockcroft-Gault) 59.4 BUN/Creatinine Ratio 30 (6-20) Glucose Level 161mg/dL (70-99) Calcium Level 8.7mg/dL (8.5-10.1) Total Bilirubin 0.8mg/dL (0.2-1.0) Aspartate Amino Transf (AST/SGOT) 9U/L (15-37) Alanine Aminotransferase (ALT/SGPT) 11U/L (14-59) Alkaline Phosphatase 73U/L (46-116) Troponin I Quantitative 0.029ng/mL (0.000-0.055) Total Protein 6.2g/dL (6.4-8.2) Albumin 3.1g/dL (3.4-5.0) Albumin/Globulin Ratio 1.0 (1.0-1.7) Lipase 173U/L (73-393) Urine Collection Type Unknown Urine Color Yellow Urine Clarity Clear Urine pH 5.0 Urine Specific [place] 1.015 Urine Protein Negativemg/dL (NEG-TRACE) Urine Glucose (UA) Negativemg/dL (NEG) Urine Ketones (Stick) Negativemg/dL (NEG) Urine Blood Small (NEG) Urine Nitrite Negative (NEG) Urine Bilirubin Negative (NEG) Urine Urobilinogen Dipstick 1.0mg/dL (0.2 mg/dL) Urine Leukocyte Esterase Small (NEG) Urine RBC Occ/HPF (0-2) Urine WBC 1-4/HPF (0-4) Urine Squamous Epithelial Cells Few/LPF Urine Bacteria 0/HPF (0-FEW) Urine Hyaline Casts Few/HPF Urine Mucus Mod/LPF Reticulocyte Count (auto) 2.1% (0.5-2.5) Magnesium Level 1.9mg/dL (1.8-2.4) Iron Level 26ug/dL (50-170) Total Iron Binding Capacity 429ug/dL (250-450) Iron Saturation 6% (15-34) Vitamin B12 Level 348pg/mL (247-911) Serum Folate 9.17ng/ml (3.2-20.0) Thyroid Stimulating Hormone (TSH) 3.540uIU/mL (0.358-3.74) Medications Current Medications Sodium Chloride (Iv Sodium Chloride 0.9% 500ml Bag) 500 ml @ 500 mls/hr 1X ONCE IV Last administered on 09/01/16t 20:38; Start 09/01/16 at 20:30; Stop at 21:29; Status DC Ondansetron HCl (Zofran) 4 mg PRN Q8HRS PRN IV NAUSEA/VOMITING; Start 09/01/16 at 21:15; Stop 09/02/16 at 21:14; Status DC Acetaminophen (Tylenol) 650 mg PRN Q4HRS PRN PO FEVER; Start 09/01/16 at 21:15 ; Stop 09/02/16 at 21:14; Status DC Pantoprazole Sodium 40 mg 40 mg DAILYAC PO Last administered on 09/03/16 07:30 ; Start 09/02/16 at 10:30 Iron Sucrose 500 mg/Sodium Chloride 275 ml @ 78.571 mls/ hr 1X ONCE IV Last administered on 09/02/16t 16:13; Start 09/02/16 at 16:00; Stop 09/02/16 at 19:29 ; Status DC Iron Sucrose/ Sodium Chloride (Venofer/Iv Sodium Chloride 0.9% 250ml) 275 ml @ 78.571 mls/ hr 1X ONCE IV ; Start 09/03/16 at 16:00; Stop 09/03/16 at 19:29 Active Scripts Active Aspir 81 (Aspirin) 81 Mg Tablet.dr 1 Tab PO DAILY Ferrous Sulfate 325 Mg Tablet 1 Tab PO BID [Diltiazem Hcl] 120 MG Cap.er.24h 120 Mg PO DAILY Colace (Docusate Sodium) 100 Mg Capsule 100 Mg PO DAILY Vitals/I & O Vital Sign - Last 24 Hours 09/02/16 09/02/16 09/02/16 09/02/16 11:07 11:08 11:23 11:40 Temp 97.5 97.5 97.7 96.7 97.5 97.5 97.7 96.7 Pulse 79 79 82 77 Resp B/P 129/62 129/62 119/63 125/58 Pulse Ox 97 O2 Delivery Room Air 09/02/16 09/02/16 09/02/16 09/02/16 12:38 13:43 15:15 19:15 Temp 97.3 97.9 96.3 99.5 97.3 97.9 96.3 99.5 Pulse 82 73 76 77 Resp 18 B/P 142/67 133/62 144/65 143/56 Pulse Ox 96 92 O2 Delivery Room Air Room Air 09/02/16 09/02/16 09/03/16 09/03/16 20:00 22:57 03:52 07:00 Temp 98.8 97.9 97.8 98.8 97.9 97.8 Pulse 87 95 77 Resp 24 22 16 B/P 146/69 142/69 141/61 Pulse Ox 93 92 O2 Delivery Room Air Room Air Room Air Room Air O2 Flow Rate 95.0 Intake and Output 09/02/16 09/02/16 09/03/16 15:00 23:00 07:00 Intake Total 1040 ml 360 ml 100 ml Balance 1040 ml 360 ml 100 ml TANNA MIR MD Sep 03, 2016 10:33
[2016-09-03 11:00] VITALS: BP 138/70
--- NOTE | 2016-09-03 11:01 | PDOC ---
G I PROGRESS NOTE Reason for Follow-up Chronic blood loss anemia Subjective No further bleeding Physical Exam Lungs decreased BS CV S1 S2 ABD +BS, soft, nontender Review of Relevant I have reviewed the following items lavern (where applicable) has been applied. Labs Laboratory Tests Test 09/01/16 20:48 09/02/16 01:15 09/02/16 06:50 White Blood Count 4.5x10^3/uL (4.0-11.0) 5.0x10^3/uL (4.0-11.0) Red Blood Count 2.34x10^6/uL (3.50-5.40) 3.15x10^6/uL (3.50-5.40) Hemoglobin 3.4g/dL (12.0-15.5) 6.2g/dL (12.0-15.5) Hematocrit 12.5% (36.0-47.0) 20.2% (36.0-47.0) Mean Corpuscular Volume 53fL (79-100) 64fL (79-100) Mean Corpuscular Hemoglobin 15pg (25-35) 20pg (25-35) Mean Corpuscular Hemoglobin Concent 28g/dL (31-37) 31g/dL (31-37) Red Cell Distribution Width 20.4% (11.5-14.5) 32.2% (11.5-14.5) Platelet Count 287x10^3/uL (140-400) 252x10^3/uL (140-400) Neutrophils (%) (Auto) 66% (31-73) 55% (31-73) Lymphocytes (%) (Auto) 13% (24-48) 20% (24-48) Monocytes (%) (Auto) 16% (0-9) 18% (0-9) Eosinophils (%) (Auto) 3% (0-3) 5% (0-3) Basophils (%) (Auto) 2% (0-3) 3% (0-3) Neutrophils # (Auto) 3.0x10^3uL (1.8-7.7) 2.8x10^3uL (1.8-7.7) Lymphocytes # (Auto) 0.6x10^3/uL (1.0-4.8) 1.0x10^3/uL (1.0-4.8) Monocytes # (Auto) 0.7x10^3/uL (0.0-1.1) 0.9x10^3/uL (0.0-1.1) Eosinophils # (Auto) 0.1x10^3/uL (0.0-0.7) 0.3x10^3/uL (0.0-0.7) Basophils # (Auto) 0.1x10^3/uL (0.0-0.2) 0.1x10^3/uL (0.0-0.2) Platelet Estimate Adequate (ADEQUATE) Polychromasia Slight Hypochromasia Marked Anisocytosis Mod Microcytosis Marked Macrocytosis Slight Ovalocytes Few Sodium Level 144mmol/L (136-145) Potassium Level 3.7mmol/L (3.5-5.1) 3.9mmol/L (3.5-5.1) Chloride Level 104mmol/L (98-107) Carbon Dioxide Level 30mmol/L (21-32) Anion Gap 10 (6-14) Blood Urea Nitrogen 27mg/dL (7-20) Creatinine 0.9mg/dL (0.6-1.0) Estimated GFR (Cockcroft-Gault) 59.4 BUN/Creatinine Ratio 30 (6-20) Glucose Level 161mg/dL (70-99) Calcium Level 8.7mg/dL (8.5-10.1) Total Bilirubin 0.8mg/dL (0.2-1.0) Aspartate Amino Transf (AST/SGOT) 9U/L (15-37) Alanine Aminotransferase (ALT/SGPT) 11U/L (14-59) Alkaline Phosphatase 73U/L (46-116) Troponin I Quantitative 0.029ng/mL (0.000-0.055) Total Protein 6.2g/dL (6.4-8.2) Albumin 3.1g/dL (3.4-5.0) Albumin/Globulin Ratio 1.0 (1.0-1.7) Lipase 173U/L (73-393) Urine Collection Type Unknown Urine Color Yellow Urine Clarity Clear Urine pH 5.0 Urine Specific [place] 1.015 Urine Protein Negativemg/dL (NEG-TRACE) Urine Glucose (UA) Negativemg/dL (NEG) Urine Ketones (Stick) Negativemg/dL (NEG) Urine Blood Small (NEG) Urine Nitrite Negative (NEG) Urine Bilirubin Negative (NEG) Urine Urobilinogen Dipstick 1.0mg/dL (0.2 mg/dL) Urine Leukocyte Esterase Small (NEG) Urine RBC Occ/HPF (0-2) Urine WBC 1-4/HPF (0-4) Urine Squamous Epithelial Cells Few/LPF Urine Bacteria 0/HPF (0-FEW) Urine Hyaline Casts Few/HPF Urine Mucus Mod/LPF Reticulocyte Count (auto) 2.1% (0.5-2.5) Magnesium Level 1.9mg/dL (1.8-2.4) Iron Level 26ug/dL (50-170) Total Iron Binding Capacity 429ug/dL (250-450) Iron Saturation 6% (15-34) Vitamin B12 Level 348pg/mL (247-911) Serum Folate 9.17ng/ml (3.2-20.0) Thyroid Stimulating Hormone (TSH) 3.540uIU/mL (0.358-3.74) Medications Current Medications Sodium Chloride (Iv Sodium Chloride 0.9% 500ml Bag) 500 ml @ 500 mls/hr 1X ONCE IV Last administered on 09/01/16 20:38; Start 09/01/16 at 20:30; Stop at 21:29; Status DC Ondansetron HCl (Zofran) 4 mg PRN Q8HRS PRN IV NAUSEA/VOMITING; Start 09/01/16 at 21:15; Stop 09/02/16 at 21:14; Status DC Acetaminophen (Tylenol) 650 mg PRN Q4HRS PRN PO FEVER; Start 09/01/16 at 21:15 ; Stop 09/02/16 at 21:14; Status DC Pantoprazole Sodium 40 mg 40 mg DAILYAC PO Last administered on 09/03/16 07:30 ; Start 09/02/16 at 10:30 Iron Sucrose 500 mg/Sodium Chloride 275 ml @ 78.571 mls/ hr 1X ONCE IV Last administered on 09/02/16 16:13; Start 09/02/16 at 16:00; Stop 09/02/16 at 19:29 ; Status DC Iron Sucrose/ Sodium Chloride (Venofer/Iv Sodium Chloride 0.9% 250ml) 275 ml @ 78.571 mls/ hr 1X ONCE IV ; Start 09/03/16 at 16:00; Stop 09/03/16 at 19:29 Active Scripts Active Aspir 81 (Aspirin) 81 Mg Tablet. 1 Tab PO DAILY Ferrous Sulfate 325 Mg Tablet 1 Tab PO BID [Diltiazem Hcl] 120 MG Cap.er.24h 120 Mg PO DAILY Colace (Docusate Sodium) 100 Mg Capsule 100 Mg PO DAILY Vitals/I & O Vital Sign - Last 24 Hours 09/02/16 09/02/16 09/02/16 09/02/16 11:07 11:08 11:23 11:40 Temp 97.5 97.5 97.7 96.7 97.5 97.5 97.7 96.7 Pulse 79 79 82 77 Resp B/P 129/62 129/62 119/63 125/58 Pulse Ox 97 O2 Delivery Room Air 09/02/16 09/02/16 09/02/16 09/02/16 12:38 13:43 15:15 19:15 Temp 97.3 97.9 96.3 99.5 97.3 97.9 96.3 99.5 Pulse 82 73 76 77 Resp 18 B/P 142/67 133/62 144/65 143/56 Pulse Ox 96 92 O2 Delivery Room Air Room Air 09/02/16 09/02/16 09/03/16 09/03/16 20:00 22:57 03:52 07:00 Temp 98.8 97.9 97.8 98.8 97.9 97.8 Pulse 87 95 77 Resp 16 B/P 146/69 142/69 141/61 Pulse Ox 93 92 O2 Delivery Room Air Room Air Room Air Room Air O2 Flow Rate 95.0 Intake and Output 09/02/16 09/02/16 09/03/16 15:00 23:00 07:00 Intake Total 1040 ml 360 ml 100 ml Balance 1040 ml 360 ml 100 ml Problem List Problems Medical Problems: (1) Symptomatic anemia Status: Acute Assessment 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 advance diet as tolerated ZACH FRANCOIS MD Sep 03, 2016 11:01
[2016-09-03 11:09] LABS: BASO # 0.1 x10^3/uL (0.0-0.2); BASO % 2 % (0-3); EOS % 4 % (0-3); HEMATOCRIT 25.1 % (36.0-47.0); HEMOGLOBIN 7.6 g/dL (12.0-15.5); LYMPH # 0.7 x10^3/uL (1.0-4.8); LYMPH % 10 % (24-48); MEAN CORPUSCULAR HEMOGLOBIN 21 pg (25-35); MEAN CORPUSCULAR HGB CONC 30 g/dL (31-37); MEAN CORPUSCULAR VOLUME 69 fL (79-100); MONO % 13 % (0-9); NEUT % 73 % (31-73); PLATELET COUNT 247 x10^3/uL (140-400); RED BLOOD COUNT 3.64 x10^6/uL (3.50-5.40); RED CELL DISTRIBUTION WIDTH 33.3 % (11.5-14.5); WHITE BLOOD COUNT 7.4 x10^3/uL (4.0-11.0)
--- NOTE | 2016-09-03 12:28 | PDOC ---
Subjective: Subjective: Onc f/u- Iron def anemia Pt still with SOB- chronic? No new issues. Told me she would do endoscopy but GI note says she declined it. Objective: Vital Signs: Vital Signs Date Time Temp Pulse Resp B/P Pulse Ox O2 Delivery O2 Flow Rate FiO2 09/03/16 11:00 97.9 74 18 138/70 92 Room Air 97.9 09/03/16 03:52 95.0 Physical Exam: General: Alert, Oriented X3, Cooperative, No acute distress, Other (lays in bed suprine, never looks away from ceiling. ) Psych/Mental Status: Mental status NL, Mood NL Labs/Imaging: Hgb up to 7.6 Assessment/Plan A/P: 1. Chronic iron def anemia likely due to AVMs per GI note. Declining endoscopy. Received 3 units PRBC, will have received 1000 mg Venofer by this PM - My office will set up f/u in 2 weeks for further IV iron, will likely be a chronic need. - Please dc on po iron as well - F/u hgb electrophoresis to make sure no underlying hemoglobinopathies that would impact MCV, hgb as well. Ok to DC from my standpoint after 2nd dose venofer given today. D/W Dr. Dumont. CONNOR SANFORD DO Sep 03, 2016 12:28
[2016-09-03 13:21] LABS: HAPTOGLOBIN 127 mg/dL (34-200)
[2016-09-03 15:00] VITALS: BP 132/64
[2016-09-03] MEDS ORDERED: IRON SUCROSE COMPLEX 500 MG in IV NORMAL SALINE 250ML 250 ML IV ONE (16:00)
--- NOTE | 2016-09-03 17:51 | CARD ---
APPROVED REPORT EXAM: Two-dimensional and M-mode echocardiogram with Doppler and color Doppler. Other Information Quality : AverageHR: 84bpm Rhythm : Atrial Fibrillation INDICATION Nonsustained Ventricular Tachycardia (NSVT) 2D DIMENSIONS RVDd3.5 (2.9-3.5cm)Left Atrium(2D)3.9 (1.6-4.0cm) IVSd1.0 (0.7-1.1cm)Aortic Root(2D)3.1 (2.0-3.7cm) LVDd4.3 (3.9-5.9cm)LVOT Diameter2.0 (1.8-2.4cm) PWd0.9 (0.7-1.1cm)LVDs3.1 (2.5-4.0cm) FS (%) 29.1 %SV47.8 ml LVEF(%)56.1 (>50%) Aortic Valve AoV Peak Star.148.6cm/sAoV VTI35.6cm AO Peak GR.8.8mmHgLVOT Peak Star.108.8cm/s AO Mean GR.5mmHgAVA (VMAX)2.27cm2 Tricuspid Valve TR P. [id number] [id number] TR Peak Gr.[id number] LEFT VENTRICLE The left ventricle is normal size. There is normal left ventricular wall thickness. Left ventricle sy stolic function is normal. The Ejection Fraction is 50-55%. There is normal LV segmental wall motion. Tissue Doppler imaging reveals moderate left ventricular diastolic dysfunction. RIGHT VENTRICLE The right ventricle is moderately dilated. RV Systolic function is mildly reduced. ATRIA The left atrium is mildly dilated. The right atrium is mildly dilated. The interatrial septum is inta ct with no evidence for an atrial septal defect or patent foramen ovale as noted on 2-D or Doppler im aging. AORTIC VALVE The aortic valve is mildly calcified but opens well. The aortic valve is trileaflet. Doppler and [place] r Flow revealed mild aortic regurgitation. There is no significant aortic valvular stenosis. MITRAL VALVE Mitral annular calcification is mild. The mitral valve leaflets are thickened. There is no evidence o f mitral valve prolapse. There is no mitral valve stenosis. Doppler and Color Flow revealed mild to m oderate mitral regurgitation. TRICUSPID VALVE The tricuspid valve is normal in structure. Doppler and Color Flow revealed moderate to severe tricus pid regurgitation. There is moderate pulmonary hypertension. The PA pressure was estimated at 59 mmHg . There is no tricuspid valve stenosis. PULMONIC VALVE Doppler and Color Flow revealed mild pulmonic valvular regurgitation. There is no pulmonic valvular s tenosis. GREAT VESSELS The aortic root is normal in size. The IVC is normal in size and collapses >50% with inspiration. PERICARDIAL EFFUSION There is no evidence of significant pericardial effusion. Critical Notification Critical Value: No <Conclusion> Left ventricle systolic function is normal. The Ejection Fraction is 50-55%. There is normal LV segmental wall motion. The right ventricle is moderately dilated. RV Systolic function is mildly reduced. Doppler and Color Flow revealed mild to moderate mitral regurgitation. Doppler and Color Flow revealed moderate to severe tricuspid regurgitation. There is moderate pulmona ry hypertension. The PA pressure was estimated at 59 mmHg.
[2016-09-03 18:59] LABS: HEP A IGM ABDY Negative (Negative)
[2016-09-04 16:21] LABS: HGB A 98.3 % (94.0-98.0); HGB A2 1.7 % (0.7-3.1); HGB ELECROPHORESIS COMMENT Note: (.)
--- NOTE | 2016-09-06 00:41 | DS ---
DATE OF DISCHARGE: 09/03/2016 DISCHARGE DIAGNOSES: 1. Acute severe symptomatic anemia, acute on chronic. 2. Nonsustained ventricular tachycardia, resolved. 3. Chronic atrial fibrillation. 4. Prior history of deep venous thrombosis. 5. Physical debility. BRIEF HOSPITAL COURSE: An 86-year-old female patient presented to the ER with complaints of shortness of breath. At the time of admission, her hemoglobin was 3.4. Due to her severe anemia, she received 3 units of hemoglobin during hospitalization, also she received IV iron sucrose. She was evaluated by Cardiology, Gastroenterology and Oncology. The patient had an echocardiogram, which showed LV ejection fraction of 50-55%, no wall motion abnormalities seen with mild ____ is noted. As per Gastroenterology, the patient is recommended to have endoscopies to rule out any obvious source of bleeding, however, the patient adamantly declined. Risks, benefits and alternatives explained. The patient thinks she will be okay with supplements of iron. At the time of examination, the patient's symptoms improved and sent home in stable condition. She is recommended to follow up with Dr. Gonzalez and Dr. Qureshi as needed if the patient wishes to continue further workup for anemia. DISCHARGE EXAMINATION: Please see my progress note. DISCHARGE CONDITION: Stable. PROGNOSIS: Guarded. FOLLOWUP: With Dr. Gonzalez and Dr. Qureshi in 1-4 weeks as needed. DISCHARGE TIME: Total time spent for discharge is 32 minutes for patient education, counseling and coordination of care. TANNA MIR MD DR: ALEXIS/jen JOB#: [id number] / [id number] STACY
== END 2016-09-03 17:15 | disposition home or self-care (01) | DRG 812 ==
LOC: ER 19:50 → 6 SOUTH 21:21
PROVIDERS: ADMIT Internal Medicine Hematology & Oncology; ATTEND Internal Medicine Hematology & Oncology
PROC: 30233N1 Transfusion of Nonautologous Red Blood Cells into Peripheral Vein, Percutaneous Approach (ICD-10-PCS; principal; 2016-09-01)
DX: D50.9 Iron deficiency anemia, unspecified (principal); I47.2 Ventricular tachycardia; I50.32 Chronic diastolic (congestive) heart failure; D50.0 Iron deficiency anemia secondary to blood loss (chronic); E03.9 Hypothyroidism, unspecified; I27.2 Other secondary pulmonary hypertension; I48.2 Chronic atrial fibrillation; K57.30 Diverticulosis of large intestine without perforation or abscess without bleeding; R53.81 Other malaise; K82.8 Other specified diseases of gallbladder; Z79.01 Long term (current) use of anticoagulants; Z86.718 Personal history of other venous thrombosis and embolism
CPT/HCPCS: 36415; 71010; 78278; 80053; 80074; 81001; 82607; 82746; 83010; 83020; 83540; 83550; 83690; 83735; 84132; 84443; 84484; 85007; 85027; 85045; 86850; 86880; 86900; 86901; 86920; 87086; 93005; 93306; 96360; 96361; 96374; A9560; J1756; J7040; J7050; P9016; 99285-25; J7030

== ENCOUNTER 2016-09-17 13:17 | Inpatient (IN) | payer MEDICARE ==
[~2016-09-17] VITALS: Ht 157.5 cm; Wt 71.2 kg
--- NOTE | 2016-09-17 14:28 | PHYS DOC ---
Past Medical History Past Medical History: Anemia, DVT, Other Additional Past Medical Histor: BLOOD TRANSFUSION Past Surgical History: Other Additional Past Surgical Histo: BILATERAL EYE CORRECTION Alcohol Use: None Drug Use: None Adult General Chief Complaint Chief Complaint: LOWER EXTREMITY SWELLING HPI HPI Patient is a 86 year old female who presents with bilateral leg swelling and shortness of breath. Patient states she was discharged from this hospital 2 weeks ago and since then she's had gradually increasing pain and swelling of her legs left greater than right. Patient now complains of some slight shortness of breath. No cough, no chest pain, no chest pressure. She denies fevers or chills. No vomiting or diarrhea. No pain with urination or urinary frequency Review of Systems Review of Systems Constitutional: Denies fever or chills Eyes: Denies change in visual acuity, redness, or eye pain HENT: Denies nasal congestion or sore throat Respiratory: Denies cough, slight shortness of breath Cardiovascular: No chest pain or palpitations GI: Denies abdominal pain, nausea, vomiting, bloody stools or diarrhea : Denies dysuria or hematuria Musculoskeletal: Denies new back pain or joint pain. Bilateral lower extremity pain. Integument: Edema of lower extremities bilaterally up to mid thigh. Neurologic: Denies headache, focal weakness or sensory changes Endocrine: Denies polyuria or polydipsia Allergies Allergies Allergies Coded Allergies Type Severity Reaction Last Updated Verified No Known Drug Allergies 02/13/15 No Physical Exam Physical Exam Constitutional: Well developed, well nourished, mild acute distress, non-toxic appearance. HENT: Normocephalic, atraumatic, , oropharynx moist, no oral exudates, nose normal. Eyes: PERRLA, EOMI, conjunctiva normal, no discharge. Neck: Normal range of motion, no tenderness, supple, no stridor. Cardiovascular:Heart rate regular, irregular rhythm, no murmur Lungs & Thorax: Bilateral breath sounds clear to auscultation Abdomen: Bowel sounds normal, soft, no tenderness, no masses, no pulsatile masses. Skin: Warm, dry, scaly skin bilateral feet up to mid calf. Erythema and pitting edema bilateral lower extremities up to mid thigh. Back: No tenderness, no CVA tenderness. Extremities: Bilateral calf tenderness, no cyanosis, no clubbing, bilateral lower extremity pitting edema up to mid thigh. Neurologic: Alert and oriented X 3, normal motor function, normal sensory function, no focal deficits noted. Psychologic: Affect normal, judgement normal, mood normal. Current Patient Data Vital Signs Vital Signs Date Time Temp Pulse Resp B/P Pulse Ox O2 Delivery O2 Flow Rate FiO2 09/17/16 15:30 81 20 178/89 98 Room Air 09/17/16 13:31 96.8 96.8 Lab Values Laboratory Tests Test 09/17/16 14:30 09/17/16 15:38 White Blood Count 4.1x10^3/uL (4.0-11.0) Red Blood Count 4.25x10^6/uL (3.50-5.40) Hemoglobin 10.2g/dL (12.0-15.5) L Hematocrit 33.7% (36.0-47.0) L Mean Corpuscular Volume 79fL (79-100) Mean Corpuscular Hemoglobin 24pg (25-35) L Mean Corpuscular Hemoglobin Concent 30g/dL (31-37) L Red Cell Distribution Width 37.4% (11.5-14.5) H Platelet Count 319x10^3/uL (140-400) Neutrophils (%) (Auto) 63% (31-73) Lymphocytes (%) (Auto) 16% (24-48) L Monocytes (%) (Auto) 13% (0-9) H Eosinophils (%) (Auto) 6% (0-3) H Basophils (%) (Auto) 2% (0-3) Neutrophils # (Auto) 2.6x10^3uL (1.8-7.7) Lymphocytes # (Auto) 0.7x10^3/uL (1.0-4.8) L Monocytes # (Auto) 0.5x10^3/uL (0.0-1.1) Eosinophils # (Auto) 0.2x10^3/uL (0.0-0.7) Basophils # (Auto) 0.1x10^3/uL (0.0-0.2) Platelet Estimate Adequate (ADEQUATE) Hypochromasia Mod Poikilocytosis Slight Anisocytosis Marked Microcytosis Mod Ovalocytes Few Schistocytes Few Sodium Level 144mmol/L (136-145) Potassium Level 4.6mmol/L (3.5-5.1) Chloride Level 104mmol/L (98-107) Carbon Dioxide Level 34mmol/L (21-32) H Anion Gap 6 (6-14) Blood Urea Nitrogen 7mg/dL (7-20) Creatinine 0.8mg/dL (0.6-1.0) Estimated GFR (Cockcroft-Gault) 68.0 BUN/Creatinine Ratio 9 (6-20) Glucose Level 94mg/dL (70-99) Calcium Level 9.0mg/dL (8.5-10.1) Total Bilirubin 0.9mg/dL (0.2-1.0) Aspartate Amino Transferase (AST) 24U/L (15-37) Alanine Aminotransferase (ALT) 17U/L (14-59) Alkaline Phosphatase 94U/L (46-116) Troponin I Quantitative < 0.017ng/mL (0.000-0.055) Total Protein 6.6g/dL (6.4-8.2) Albumin 3.4g/dL (3.4-5.0) Albumin/Globulin Ratio 1.1 (1.0-1.7) Urine Collection Type Unknown Urine Color Yellow Urine Clarity Clear Urine pH 7.5 Urine Specific [place] 1.010 Urine Protein Negativemg/dL (NEG-TRACE) Urine Glucose (UA) Negativemg/dL (NEG) Urine Ketones (Stick) Negativemg/dL (NEG) Urine Blood Negative (NEG) Urine Nitrite Negative (NEG) Urine Bilirubin Negative (NEG) Urine Urobilinogen Dipstick 1.0mg/dL (0.2 mg/dL) Urine Leukocyte Esterase Trace (NEG) Urine RBC 1-2/HPF (0-2) Urine WBC 1-4/HPF (0-4) Urine Squamous Epithelial Cells Few/LPF Urine Bacteria 0/HPF (0-FEW) Urine Hyaline Casts Few/HPF Urine Mucus Slight/LPF Laboratory Tests 09/17/16 14:30 Laboratory Tests 09/17/16 14:30 EKG EKG [] Radiology/Procedures Radiology/Procedures [] Course & Med Decision Making Course & Med Decision Making Pertinent Labs and Imaging studies reviewed. (See chart for details) Discussed case with Dr. Espinoza at 1641 and he agrees to admit the patient. Dragon Disclaimer Dragon Disclaimer This electronic medical record was generated, in whole or in part, using a voice recognition dictation system. Departure Departure Impression: Primary Impression: Cellulitis Disposition: 09 ADMITTED INPATIENT Admitting Physician: Cheyanne Espinoza Referrals: UNKNOWN PCP NAME (PCP) Problem Qualifiers Primary Impression: Cellulitis Site of cellulitis: extremity Site of cellulitis of extremity: lower extremity Laterality: unspecified laterality Qualified Code: L03.119 - Cellulitis of unspecified part of limb KARLY MAE MD Sep 17, 2016 14:28
--- NOTE | 2016-09-17 14:38 | EKG ---
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
[2016-09-17 14:42] LABS: BASO # 0.1 x10^3/uL (0.0-0.2); BASO % 2 % (0-3); EOS % 6 % (0-3); HEMATOCRIT 33.7 % (36.0-47.0); HEMOGLOBIN 10.2 g/dL (12.0-15.5); LYMPH # 0.7 x10^3/uL (1.0-4.8); LYMPH % 16 % (24-48); MEAN CORPUSCULAR HEMOGLOBIN 24 pg (25-35); MEAN CORPUSCULAR HGB CONC 30 g/dL (31-37); MEAN CORPUSCULAR VOLUME 79 fL (79-100); MONO % 13 % (0-9); NEUT % 63 % (31-73); PLATELET COUNT 319 x10^3/uL (140-400); RED BLOOD COUNT 4.25 x10^6/uL (3.50-5.40); RED CELL DISTRIBUTION WIDTH 37.4 % (11.5-14.5); WHITE BLOOD COUNT 4.1 x10^3/uL (4.0-11.0)
--- NOTE | 2016-09-17 14:42 | RAD ---
EXAM: Chest, single view. HISTORY: Shortness of air. COMPARISON: 09/01/2016. FINDINGS: A frontal view of the chest is obtained. There is a stable small right pleural effusion with lower lobe atelectasis or infiltrate. There is stable opacity within the lateral left thorax likely due to loculated fluid within the left pleural fissure illustrated on a CT dated 02/07/2015. The heart is upper normal in size. There is no pneumothorax. There is a moderate hiatal hernia. IMPRESSION: 1. Stable small right pleural effusion with lower lobe atelectasis or infiltrate and stable loculated fluid within the left pleural fissure. 2. Moderate hiatal hernia. 3. Upper normal heart size.
[2016-09-17 15:04] LABS: CREATININE 0.8 mg/dL (0.6-1.0); POTASSIUM 4.6 mmol/L (3.5-5.1)
[2016-09-17 15:07] LABS: PLT ESTIMATE ADEQUATE (ADEQUATE)
[2016-09-17 15:09] LABS: ANISOCYTOSIS MARKED; HYPOCHROMIA MOD; MICROCYTOSIS MOD; OVALOCYTES FEW
[2016-09-17 15:10] LABS: ALBUMIN 3.4 g/dL (3.4-5.0); ALBUMIN/GLOBULIN RATIO 1.1 (1.0-1.7); TOTAL BILIRUBIN 0.9 mg/dL (0.2-1.0); TOTAL PROTEIN 6.6 g/dL (6.4-8.2)
[2016-09-17 15:11] LABS: SCHISTOCYTES FEW
[2016-09-17 15:12] LABS: POIKILOCYTOSIS SLIGHT
[2016-09-17 15:46] LABS: BILIRUBIN,URINE NEGATIVE (NEG); GLUCOSE,URINE NEGATIVE (NEG); NITRITE,URINE NEGATIVE (NEG); PH,URINE 7.5; PROTEIN,URINE NEGATIVE (NEG-TRACE)
[2016-09-17 16:00] LABS: BACTERIA,URINE 0 /HPF (0-FEW); SQUAMOUS EPITHELIAL CELL,UR FEW /LPF
--- NOTE | 2016-09-17 16:11 | RAD ---
EXAM: [Bilateral] lower extremity Doppler sonogram. HISTORY: Swelling. TECHNIQUE: Grayscale and color Doppler sonographic imaging of the lower extremity veins with spectral waveform analysis was performed. COMPARISON: None. FINDINGS: There is normal color flow, normal compressibility and there are normal spectral waveforms within the lower extremity veins. IMPRESSION: No Doppler evidence of lower extremity venous thrombosis.
[2016-09-17 21:15] VITALS: BP 146/74
[2016-09-17] MEDS ORDERED: CEFTRIAXONE SODIUM 1 GM in IV NORMAL SALINE 50ML 50 ML IV SCH (23:00)
[2016-09-17 23:15] VITALS: BP 133/71
[2016-09-18 00:06] VITALS: BP 133/71
--- NOTE | 2016-09-18 00:27 | HP ---
ADMIT DATE: 09/17/2016 CHIEF COMPLAINT: Lower extremity swelling. HISTORY OF PRESENT ILLNESS: The patient is a pleasant 86-year-old female presents with lower extremity swelling. She has also got very dry skin and appears she has cellulitis. This has been occurring chronically. I have discussed the case with the ER physician. We are going to admit her and give her IV antibiotics. PAST MEDICAL HISTORY: DVT, anemia, and cataracts. ALLERGIES: None. FAMILY HISTORY: Hypertension. SOCIAL HISTORY: She does not drink, smoke or take drugs. MEDICATIONS: Reviewed, please refer to the MRAD. REVIEW OF SYSTEMS: GENERAL: No history of weight change, weakness or fevers. SKIN: No bruising, hair changes or rashes. EYES: No blurred, double or loss of vision. NOSE AND THROAT: No history of nosebleeds, hoarseness or sore throat. HEART: No history of palpitations, chest pain or shortness of breath on exertion. LUNGS: Denies cough, hemoptysis, wheezing or shortness of breath. GASTROINTESTINAL: Denies changes in appetite, nausea, vomiting, diarrhea or constipation. GENITOURINARY: No history of frequency, urgency, hesitancy or nocturia. NEUROLOGIC: Denies history of numbness, tingling, tremor or weakness. PSYCHIATRIC: No history of panic, anxiety or depression. ENDOCRINE: No history of heat or cold intolerance, polyuria or polydipsia. EXTREMITIES: She complains of edema in her legs. PHYSICAL EXAMINATION: VITAL SIGNS: Temperature afebrile, pulse 98, respirations 18, blood pressure 160/82. GENERAL: She is alert, cooperative, weak. HEART: Normal S1, S2. LUNGS: Clear with slight crackles. ABDOMEN: Soft, positive bowel sounds. EXTREMITIES: Lower extremities are quite edematous, she has got very dry skin on those as well. She also has some cellulitis. ENDOCRINE: No thyromegaly. LYMPHATICS: No cervical nodes. HEMATOPOIETIC: No bruising. Electrolytes are normal. Troponin 0. BNP is pending. LABORATORY DATA: Hematology: White cells 4, hemoglobin 10, platelets 319. Urinalysis shows trace leukocyte esterase and 1-4 white cells. Chest x-ray shows a small right pleural effusion with lower lobe infiltrate and stable loculated fluid within the left pleural fissure and a moderate hiatal hernia ____. Heart is normal in size. ASSESSMENT AND PLAN: Cellulitis and probable pneumonia, abnormal chest x-ray, urinary tract infection, anemia. The patient has been admitted, we will start IV antibiotics. Consult pulmonary medicine, resume home medicines, PT/OT, gentle fluids. PROGNOSIS: Guarded. LOLLY BOGGS DO DR: WALTER/jen JOB#: [id number] / [id number]
[2016-09-18] MEDS: ENOXAPARIN 40 MG/0.4 ML SYRINGE. SQ SCH ×2 (00:43→21:36)
[2016-09-18 07:30] VITALS: BP 133/73
[2016-09-18] MEDS ORDERED: FERROUS SULFATE 325 MG TABLET. PO ONE ×2 (08:05→20:33)
[2016-09-18] MEDS: DOCUSATE SODIUM 100 MG CAPSULE. PO SCH (08:29)
[2016-09-18] MEDS: ASPIRIN ENTERIC COATED 81 MG TABLET.DR. PO SCH (08:29)
[2016-09-18] MEDS: FERROUS SULFATE 325 MG TABLET PO SCH ×2 (08:29→21:33)
--- NOTE | 2016-09-18 08:59 | PDOC ---
PULMONARY PROGRESS NOTES Vitals Vital Signs Date Time Temp Pulse Resp B/P Pulse Ox O2 Delivery O2 Flow Rate FiO2 09/18/16 08:00 Room Air 09/18/16 07:30 97.8 90 20 133/73 88 97.8 Labs Laboratory Tests Test 09/17/16 14:30 09/17/16 15:38 White Blood Count 4.1x10^3/uL (4.0-11.0) Red Blood Count 4.25x10^6/uL (3.50-5.40) Hemoglobin 10.2g/dL (12.0-15.5) Hematocrit 33.7% (36.0-47.0) Mean Corpuscular Volume 79fL (79-100) Mean Corpuscular Hemoglobin 24pg (25-35) Mean Corpuscular Hemoglobin Concent 30g/dL (31-37) Red Cell Distribution Width 37.4% (11.5-14.5) Platelet Count 319x10^3/uL (140-400) Neutrophils (%) (Auto) 63% (31-73) Lymphocytes (%) (Auto) 16% (24-48) Monocytes (%) (Auto) 13% (0-9) Eosinophils (%) (Auto) 6% (0-3) Basophils (%) (Auto) 2% (0-3) Neutrophils # (Auto) 2.6x10^3uL (1.8-7.7) Lymphocytes # (Auto) 0.7x10^3/uL (1.0-4.8) Monocytes # (Auto) 0.5x10^3/uL (0.0-1.1) Eosinophils # (Auto) 0.2x10^3/uL (0.0-0.7) Basophils # (Auto) 0.1x10^3/uL (0.0-0.2) Platelet Estimate Adequate (ADEQUATE) Hypochromasia Mod Poikilocytosis Slight Anisocytosis Marked Microcytosis Mod Ovalocytes Few Schistocytes Few Sodium Level 144mmol/L (136-145) Potassium Level 4.6mmol/L (3.5-5.1) Chloride Level 104mmol/L (98-107) Carbon Dioxide Level 34mmol/L (21-32) Anion Gap 6 (6-14) Blood Urea Nitrogen 7mg/dL (7-20) Creatinine 0.8mg/dL (0.6-1.0) Estimated GFR (Cockcroft-Gault) 68.0 BUN/Creatinine Ratio 9 (6-20) Glucose Level 94mg/dL (70-99) Calcium Level 9.0mg/dL (8.5-10.1) Total Bilirubin 0.9mg/dL (0.2-1.0) Aspartate Amino Transf (AST/SGOT) 24U/L (15-37) Alanine Aminotransferase (ALT/SGPT) 17U/L (14-59) Alkaline Phosphatase 94U/L (46-116) Troponin I Quantitative < 0.017ng/mL (0.000-0.055) Total Protein 6.6g/dL (6.4-8.2) Albumin 3.4g/dL (3.4-5.0) Albumin/Globulin Ratio 1.1 (1.0-1.7) Urine Collection Type Unknown Urine Color Yellow Urine Clarity Clear Urine pH 7.5 Urine Specific [place] 1.010 Urine Protein Negativemg/dL (NEG-TRACE) Urine Glucose (UA) Negativemg/dL (NEG) Urine Ketones (Stick) Negativemg/dL (NEG) Urine Blood Negative (NEG) Urine Nitrite Negative (NEG) Urine Bilirubin Negative (NEG) Urine Urobilinogen Dipstick 1.0mg/dL (0.2 mg/dL) Urine Leukocyte Esterase Trace (NEG) Urine RBC 1-2/HPF (0-2) Urine WBC 1-4/HPF (0-4) Urine Squamous Epithelial Cells Few/LPF Urine Bacteria 0/HPF (0-FEW) Urine Hyaline Casts Few/HPF Urine Mucus Slight/LPF Laboratory Tests Test 09/17/16 14:30 09/17/16 15:38 White Blood Count 4.1x10^3/uL (4.0-11.0) Red Blood Count 4.25x10^6/uL (3.50-5.40) Hemoglobin 10.2g/dL (12.0-15.5) Hematocrit 33.7% (36.0-47.0) Mean Corpuscular Volume 79fL (79-100) Mean Corpuscular Hemoglobin 24pg (25-35) Mean Corpuscular Hemoglobin Concent 30g/dL (31-37) Red Cell Distribution Width 37.4% (11.5-14.5) Platelet Count 319x10^3/uL (140-400) Neutrophils (%) (Auto) 63% (31-73) Lymphocytes (%) (Auto) 16% (24-48) Monocytes (%) (Auto) 13% (0-9) Eosinophils (%) (Auto) 6% (0-3) Basophils (%) (Auto) 2% (0-3) Neutrophils # (Auto) 2.6x10^3uL (1.8-7.7) Lymphocytes # (Auto) 0.7x10^3/uL (1.0-4.8) Monocytes # (Auto) 0.5x10^3/uL (0.0-1.1) Eosinophils # (Auto) 0.2x10^3/uL (0.0-0.7) Basophils # (Auto) 0.1x10^3/uL (0.0-0.2) Platelet Estimate Adequate (ADEQUATE) Hypochromasia Mod Poikilocytosis Slight Anisocytosis Marked Microcytosis Mod Ovalocytes Few Schistocytes Few Sodium Level 144mmol/L (136-145) Potassium Level 4.6mmol/L (3.5-5.1) Chloride Level 104mmol/L (98-107) Carbon Dioxide Level 34mmol/L (21-32) Anion Gap 6 (6-14) Blood Urea Nitrogen 7mg/dL (7-20) Creatinine 0.8mg/dL (0.6-1.0) Estimated GFR (Cockcroft-Gault) 68.0 BUN/Creatinine Ratio 9 (6-20) Glucose Level 94mg/dL (70-99) Calcium Level 9.0mg/dL (8.5-10.1) Total Bilirubin 0.9mg/dL (0.2-1.0) Aspartate Amino Transf (AST/SGOT) 24U/L (15-37) Alanine Aminotransferase (ALT/SGPT) 17U/L (14-59) Alkaline Phosphatase 94U/L (46-116) Troponin I Quantitative < 0.017ng/mL (0.000-0.055) Total Protein 6.6g/dL (6.4-8.2) Albumin 3.4g/dL (3.4-5.0) Albumin/Globulin Ratio 1.1 (1.0-1.7) Urine Collection Type Unknown Urine Color Yellow Urine Clarity Clear Urine pH 7.5 Urine Specific [place] 1.010 Urine Protein Negativemg/dL (NEG-TRACE) Urine Glucose (UA) Negativemg/dL (NEG) Urine Ketones (Stick) Negativemg/dL (NEG) Urine Blood Negative (NEG) Urine Nitrite Negative (NEG) Urine Bilirubin Negative (NEG) Urine Urobilinogen Dipstick 1.0mg/dL (0.2 mg/dL) Urine Leukocyte Esterase Trace (NEG) Urine RBC 1-2/HPF (0-2) Urine WBC 1-4/HPF (0-4) Urine Squamous Epithelial Cells Few/LPF Urine Bacteria 0/HPF (0-FEW) Urine Hyaline Casts Few/HPF Urine Mucus Slight/LPF Medications Active Scripts Medications Dose Route/Sig Days Date Category Aspir 81 (Aspirin) 81 Mg Tablet.dr 1 Tab PO DAILY 02/12/15 Rx Ferrous Sulfate 325 Mg Tablet 1 Tab PO BID 02/12/15 Rx Colace (Docusate Sodium) 100 Mg Capsule 100 Mg PO DAILY 02/12/15 Rx Impression . full consult dicated thanks no pneumonia chronic chf spoke with Dr Ellis thanks WALDEMAR GARAY MD Sep 18, 2016 08:59
[2016-09-18 10:34] VITALS: BP 120/61
--- NOTE | 2016-09-18 11:21 | PDOC ---
Infectious Disease Note Vital Sign Vital Signs Vital Signs Date Time Temp Pulse Resp B/P Pulse Ox O2 Delivery O2 Flow Rate FiO2 09/18/16 10:34 97.9 70 20 120/61 91 Room Air 97.9 Labs Lab Laboratory Tests Test 09/17/16 14:30 09/17/16 15:38 White Blood Count 4.1x10^3/uL (4.0-11.0) Red Blood Count 4.25x10^6/uL (3.50-5.40) Hemoglobin 10.2g/dL (12.0-15.5) Hematocrit 33.7% (36.0-47.0) Mean Corpuscular Volume 79fL (79-100) Mean Corpuscular Hemoglobin 24pg (25-35) Mean Corpuscular Hemoglobin Concent 30g/dL (31-37) Red Cell Distribution Width 37.4% (11.5-14.5) Platelet Count 319x10^3/uL (140-400) Neutrophils (%) (Auto) 63% (31-73) Lymphocytes (%) (Auto) 16% (24-48) Monocytes (%) (Auto) 13% (0-9) Eosinophils (%) (Auto) 6% (0-3) Basophils (%) (Auto) 2% (0-3) Neutrophils # (Auto) 2.6x10^3uL (1.8-7.7) Lymphocytes # (Auto) 0.7x10^3/uL (1.0-4.8) Monocytes # (Auto) 0.5x10^3/uL (0.0-1.1) Eosinophils # (Auto) 0.2x10^3/uL (0.0-0.7) Basophils # (Auto) 0.1x10^3/uL (0.0-0.2) Platelet Estimate Adequate (ADEQUATE) Hypochromasia Mod Poikilocytosis Slight Anisocytosis Marked Microcytosis Mod Ovalocytes Few Schistocytes Few Sodium Level 144mmol/L (136-145) Potassium Level 4.6mmol/L (3.5-5.1) Chloride Level 104mmol/L (98-107) Carbon Dioxide Level 34mmol/L (21-32) Anion Gap 6 (6-14) Blood Urea Nitrogen 7mg/dL (7-20) Creatinine 0.8mg/dL (0.6-1.0) Estimated GFR (Cockcroft-Gault) 68.0 BUN/Creatinine Ratio 9 (6-20) Glucose Level 94mg/dL (70-99) Calcium Level 9.0mg/dL (8.5-10.1) Total Bilirubin 0.9mg/dL (0.2-1.0) Aspartate Amino Transf (AST/SGOT) 24U/L (15-37) Alanine Aminotransferase (ALT/SGPT) 17U/L (14-59) Alkaline Phosphatase 94U/L (46-116) Troponin I Quantitative < 0.017ng/mL (0.000-0.055) Total Protein 6.6g/dL (6.4-8.2) Albumin 3.4g/dL (3.4-5.0) Albumin/Globulin Ratio 1.1 (1.0-1.7) Urine Collection Type Unknown Urine Color Yellow Urine Clarity Clear Urine pH 7.5 Urine Specific [place] 1.010 Urine Protein Negativemg/dL (NEG-TRACE) Urine Glucose (UA) Negativemg/dL (NEG) Urine Ketones (Stick) Negativemg/dL (NEG) Urine Blood Negative (NEG) Urine Nitrite Negative (NEG) Urine Bilirubin Negative (NEG) Urine Urobilinogen Dipstick 1.0mg/dL (0.2 mg/dL) Urine Leukocyte Esterase Trace (NEG) Urine RBC 1-2/HPF (0-2) Urine WBC 1-4/HPF (0-4) Urine Squamous Epithelial Cells Few/LPF Urine Bacteria 0/HPF (0-FEW) Urine Hyaline Casts Few/HPF Urine Mucus Slight/LPF Objective Assessment Left leg cellulitis John lower ext stasis dermatitis Tinea infection of feet Pulmonary infiltrate rule out chf Plan Plan of Care po keflex po diflucan leg elevation pt/ot bnp SHANNON MCGOWAN MD Sep 18, 2016 11:21
[2016-09-18] MEDS: FLUCONAZOLE 100 MG TABLET. PO SCH (13:15)
--- NOTE | 2016-09-18 13:28 | PDOC ---
PROGRESS NOTES Chief Complaint Chief Complaint Cellulitis ASSESSMENT AND PLAN: 1. Cellulitis: on Keflex. 2. UTI: awaiting cult result. Keflex empirically 3. CHF: diastolic on echo 2 weeks ago. CXR essentially unchanged. no respir issues, but significant edema. gentle diuresis 4. Afib: rate controlled. no AOC due to hx GIB 5. 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0-47.0) Mean Corpuscular Volume 79fL (79-100) Mean Corpuscular Hemoglobin 24pg (25-35) Mean Corpuscular Hemoglobin Concent 30g/dL (31-37) Red Cell Distribution Width 37.4% (11.5-14.5) Platelet Count 319x10^3/uL (140-400) Neutrophils (%) (Auto) 63% (31-73) Lymphocytes (%) (Auto) 16% (24-48) Monocytes (%) (Auto) 13% (0-9) Eosinophils (%) (Auto) 6% (0-3) Basophils (%) (Auto) 2% (0-3) Neutrophils # (Auto) 2.6x10^3uL (1.8-7.7) Lymphocytes # (Auto) 0.7x10^3/uL (1.0-4.8) Monocytes # (Auto) 0.5x10^3/uL (0.0-1.1) Eosinophils # (Auto) 0.2x10^3/uL (0.0-0.7) Basophils # (Auto) 0.1x10^3/uL (0.0-0.2) Platelet Estimate Adequate (ADEQUATE) Hypochromasia Mod Poikilocytosis Slight Anisocytosis Marked Microcytosis Mod Ovalocytes Few Schistocytes Few Sodium Level 144mmol/L (136-145) Potassium Level 4.6mmol/L (3.5-5.1) Chloride Level 104mmol/L (98-107) Carbon Dioxide Level 34mmol/L (21-32) Anion Gap 6 (6-14) Blood Urea Nitrogen 7mg/dL (7-20) Creatinine 0.8mg/dL (0.6-1.0) Estimated GFR (Cockcroft-Gault) 68.0 BUN/Creatinine Ratio 9 (6-20) Glucose Level 94mg/dL (70-99) Calcium Level 9.0mg/dL (8.5-10.1) Total Bilirubin 0.9mg/dL (0.2-1.0) Aspartate Amino Transf (AST/SGOT) 24U/L (15-37) Alanine Aminotransferase (ALT/SGPT) 17U/L (14-59) Alkaline Phosphatase 94U/L (46-116) Troponin I Quantitative < 0.017ng/mL (0.000-0.055) Total Protein 6.6g/dL (6.4-8.2) Albumin 3.4g/dL (3.4-5.0) Albumin/Globulin Ratio 1.1 (1.0-1.7) Urine Collection Type Unknown Urine Color Yellow Urine Clarity Clear Urine pH 7.5 Urine Specific [place] 1.010 Urine Protein Negativemg/dL (NEG-TRACE) Urine Glucose (UA) Negativemg/dL (NEG) Urine Ketones (Stick) Negativemg/dL (NEG) Urine Blood Negative (NEG) Urine Nitrite Negative (NEG) Urine Bilirubin Negative (NEG) Urine Urobilinogen Dipstick 1.0mg/dL (0.2 mg/dL) Urine Leukocyte Esterase Trace (NEG) Urine RBC 1-2/HPF (0-2) Urine WBC 1-4/HPF (0-4) Urine Squamous Epithelial Cells Few/LPF Urine Bacteria 0/HPF (0-FEW) Urine Hyaline Casts Few/HPF Urine Mucus Slight/LPF [id number] Natriuretic Peptide 3092pg/mL (0-449) Review of Systems Review of Systems sleeping, wakes to verbal input. feels "fine" WALTER VELEZ MD Sep 18, 2016 13:28
[2016-09-18] MEDS: CEPHALEXIN 250 MG CAPSULE. PO SCH ×2 (15:17→21:33)
[2016-09-18 15:19] VITALS: BP 121/61
[2016-09-18 19:00] VITALS: BP 135/79
[2016-09-18 23:05] VITALS: BP 145/80
--- NOTE | 2016-09-18 23:57 | CONS ---
DATE OF CONSULTATION: 09/18/2016 REQUESTING PHYSICIAN: Cheyanne Espinoza DO REASON FOR CONSULTATION: Pneumonia and bilateral cellulitis. HISTORY OF PRESENT ILLNESS: This is an 86-year-old female who was admitted with lower extremity swelling and pain. The patient was diagnosed having cellulitis. The patient also was found to have pulmonary infiltrate. The patient is started on Rocephin and consult has been requested. Denies any cough, shortness of breath. Denies any nausea, vomiting, diarrhea, denies any fever, chest pain, abdominal pain, urinary symptoms, only complaint is leg swelling and pain. PAST MEDICAL HISTORY: Positive for DVT and anemia and cataracts. SOCIAL HISTORY: Negative for smoking, alcohol, illicit drug use. ALLERGIES: No known drug allergies. CURRENT MEDICATIONS: Reviewed. The patient is on Rocephin. REVIEW OF SYSTEMS: As per HPI, all other systems reviewed are negative. PHYSICAL EXAMINATION: GENERAL: Alert, oriented female, not in any distress. VITAL SIGNS: Stable, afebrile. HEENT: NAD. NECK: Supple, no JVP, no lymphadenopathy. LUNGS: Clear. HEART: S1, S2 regular. ABDOMEN: Benign. EXTREMITIES: Bilateral lower extremity pitting edema present. The patient has chronic stasis dermatitis changes. With elevation of the leg, redness improves but left leg had redness that did not improve back to normal. Also, there is yeast infection between the toes with very poorly unkempt toenails. NEUROLOGIC: The patient is alert, awake, able to communicate and moves all the extremities. Memory is poor. LABORATORY DATA: White count is 4.1, hemoglobin 10.2, platelets are normal. BUN and creatinine is normal. Urinalysis, unremarkable for infection. Chest x-ray showed small pleural effusion with lower lobe atelectasis and/or infiltrate. IMPRESSION: 1. Left lower extremity cellulitis. 2. Bilateral lower extremity stasis dermatitis. 3. Pulmonary changes likely related to congestive heart failure. 4. Tinea infection of the feet. RECOMMENDATIONS: I would change Rocephin to p.o. Keflex, p.o. Diflucan leg elevation. PT, OT and BNP. Thank you very much, Dr. Espinoza, for giving me the opportunity to participate in this patient's care. SHANNON MCGOWAN MD DR: JUN/jen JOB#: [id number] / [id number]
--- NOTE | 2016-09-19 01:38 | CONS ---
DATE OF CONSULTATION: 09/18/2016 ATTENDING PHYSICIAN: Dr. Cheyanne Espinoza. REASON FOR CONSULTATION: The patient seen in pulmonary consultation at the request of Dr. Espinoza for abnormal x-ray and possible pneumonia. HISTORY OF PRESENT ILLNESS: The patient presented with increasing lower extremity edema, some pain and cellulitis. She is currently being treated for lower extremity cellulitis. She was seen in consultation by the Infectious Disease Service. She had a chest x-ray, which revealed a small right-sided pleural effusion with atelectasis, possibly loculated effusion. The patient denies any significant shortness of breath. She is not wearing oxygen. She has never smoked. I reviewed her CT in comparison to the film dated 08/21/2015, it has markedly improved. The bilateral infiltrates and atelectasis have improved, the effusions have greatly improved. The patient has had venous Dopplers of lower extremity, which were negative. PAST MEDICAL HISTORY: Is remarkable for prior admissions for pneumonia, effusions, anemia, DVT. PAST SURGICAL HISTORY: Previous bilateral eye extraction. ALLERGIES: No known drug allergies. CURRENT MEDICATIONS: List was reviewed. REVIEW OF SYSTEMS: As indicated above, otherwise, a 10-point system was reviewed and negative. SOCIAL HISTORY: She denies any tobacco use, has never smoked. PHYSICAL EXAMINATION: GENERAL: The patient appeared to be of stated age. She was working with physical therapy, able to walk without significant distress. She required no oxygen supplementation. HEENT: Eyes, the sclerae were nonicteric. NECK: Jugular venous distention was not elevated. No lymphadenopathy. CHEST: Full expansion. LUNGS: Diminished breath sounds. No wheezes. CARDIOVASCULAR: Regular rate and rhythm with S1, S2, no S3. ABDOMEN: Soft, nontender, nondistended. EXTREMITIES: No clubbing, cyanosis. Pitting edema lower extremities along with skin changes compatible with venous insufficiency. LABORATORY DATA: Reviewed. Echocardiogram from 11/07/2014 revealed ejection fraction of 55%, PA pressures of 44. LABS: White count was normal. Hemoglobin and hematocrit were chronically low. Electrolytes were noted. BUN and creatinine were normal. BNP was elevated. IMPRESSION: 1. Abnormal chest x-ray, I reviewed the CT of the chest that was obtained on 08/20 in comparison to previous CAT scan, there is marked improvement of the infiltrate and effusion, no further workup needed, I do not think that she has new pneumonia. 2. Negative venous Dopplers of lower extremities. 3. Lower extremity cellulitis per Infectious Disease Service. PLAN: Once again most of the CT scan findings compatible with combination of pneumonia and CHF have improved. No further workup is required. The patient was walking with physical therapy and was in no significant respiratory distress. I do not recommend antibiotics for pneumonia. I do not recommend any additional workup. I do appreciate the privilege in sharing in the patient's care. WALDEMAR GARAY MD DR: MIGUEL ANGEL/jen JOB#: [id number] / [id number]
[2016-09-19 03:25] VITALS: BP 120/60
[2016-09-19 07:00] VITALS: BP 145/87
[2016-09-19] MEDS ORDERED: FERROUS SULFATE 325 MG TABLET. PO ONE (07:43)
[2016-09-19] MEDS: CEPHALEXIN 250 MG CAPSULE. PO SCH ×3 (08:15→20:15)
[2016-09-19] MEDS: ASPIRIN ENTERIC COATED 81 MG TABLET.DR. PO SCH (08:15)
[2016-09-19] MEDS: DOCUSATE SODIUM 100 MG CAPSULE. PO SCH (08:16)
[2016-09-19] MEDS: FERROUS SULFATE 325 MG TABLET PO SCH (08:16)
[2016-09-19] MEDS: FLUCONAZOLE 100 MG TABLET. PO SCH (08:16)
--- NOTE | 2016-09-19 10:19 | PDOC ---
PULMONARY PROGRESS NOTES Vitals Vital Signs Date Time Temp Pulse Resp B/P Pulse Ox O2 Delivery O2 Flow Rate FiO2 09/19/16 07:00 96.4 77 14 145/87 90 Room Air 96.4 Lungs: Clear Labs Laboratory Tests Test 09/17/16 14:30 09/17/16 15:38 09/18/16 11:50 White Blood Count 4.1x10^3/uL (4.0-11.0) Red Blood Count 4.25x10^6/uL (3.50-5.40) Hemoglobin 10.2g/dL (12.0-15.5) Hematocrit 33.7% (36.0-47.0) Mean Corpuscular Volume 79fL (79-100) Mean Corpuscular Hemoglobin 24pg (25-35) Mean Corpuscular Hemoglobin Concent 30g/dL (31-37) Red Cell Distribution Width 37.4% (11.5-14.5) Platelet Count 319x10^3/uL (140-400) Neutrophils (%) (Auto) 63% (31-73) Lymphocytes (%) (Auto) 16% (24-48) Monocytes (%) (Auto) 13% (0-9) Eosinophils (%) (Auto) 6% (0-3) Basophils (%) (Auto) 2% (0-3) Neutrophils # (Auto) 2.6x10^3uL (1.8-7.7) Lymphocytes # (Auto) 0.7x10^3/uL (1.0-4.8) Monocytes # (Auto) 0.5x10^3/uL (0.0-1.1) Eosinophils # (Auto) 0.2x10^3/uL (0.0-0.7) Basophils # (Auto) 0.1x10^3/uL (0.0-0.2) Platelet Estimate Adequate (ADEQUATE) Hypochromasia Mod Poikilocytosis Slight Anisocytosis Marked Microcytosis Mod Ovalocytes Few Schistocytes Few Sodium Level 144mmol/L (136-145) Potassium Level 4.6mmol/L (3.5-5.1) Chloride Level 104mmol/L (98-107) Carbon Dioxide Level 34mmol/L (21-32) Anion Gap 6 (6-14) Blood Urea Nitrogen 7mg/dL (7-20) Creatinine 0.8mg/dL (0.6-1.0) Estimated GFR (Cockcroft-Gault) 68.0 BUN/Creatinine Ratio 9 (6-20) Glucose Level 94mg/dL (70-99) Calcium Level 9.0mg/dL (8.5-10.1) Total Bilirubin 0.9mg/dL (0.2-1.0) Aspartate Amino Transf (AST/SGOT) 24U/L (15-37) Alanine Aminotransferase (ALT/SGPT) 17U/L (14-59) Alkaline Phosphatase 94U/L (46-116) Troponin I Quantitative < 0.017ng/mL (0.000-0.055) Total Protein 6.6g/dL (6.4-8.2) Albumin 3.4g/dL (3.4-5.0) Albumin/Globulin Ratio 1.1 (1.0-1.7) Urine Collection Type Unknown Urine Color Yellow Urine Clarity Clear Urine pH 7.5 Urine Specific [place] 1.010 Urine Protein Negativemg/dL (NEG-TRACE) Urine Glucose (UA) Negativemg/dL (NEG) Urine Ketones (Stick) Negativemg/dL (NEG) Urine Blood Negative (NEG) Urine Nitrite Negative (NEG) Urine Bilirubin Negative (NEG) Urine Urobilinogen Dipstick 1.0mg/dL (0.2 mg/dL) Urine Leukocyte Esterase Trace (NEG) Urine RBC 1-2/HPF (0-2) Urine WBC 1-4/HPF (0-4) Urine Squamous Epithelial Cells Few/LPF Urine Bacteria 0/HPF (0-FEW) Urine Hyaline Casts Few/HPF Urine Mucus Slight/LPF HE-[id number]-Type Natriuretic Peptide 3092pg/mL (0-449) Procalcitonin < 0.10ng/mL (0.00-0.10) Laboratory Tests Test 09/18/16 11:50 QP-Snp-Y-Type Natriuretic Peptide 3092pg/mL (0-449) Procalcitonin < 0.10ng/mL (0.00-0.10) Medications Active Scripts Medications Dose Route/Sig Days Date Category Aspir 81 (Aspirin) 81 Mg Tablet.dr 1 Tab PO DAILY 02/12/15 Rx Ferrous Sulfate 325 Mg Tablet 1 Tab PO BID 02/12/15 Rx Colace (Docusate Sodium) 100 Mg Capsule 100 Mg PO DAILY 02/12/15 Rx Impression . 1. Abnormal chest x-ray, I reviewed the CT of the chest that was obtained on 08/20 in comparison to previous CAT scan, there is marked improvement of the infiltrate and effusion, no further workup needed, I do not think that she has new pneumonia. 2. Negative venous Dopplers of lower extremities. 3. Lower extremity cellulitis per Infectious Disease Service. Plan . PLAN: Once again most of the CT scan findings compatible with combination of pneumonia and CHF have improved. No further workup is required. The patient was walking with physical therapy and was in no significant respiratory distress. I do not recommend antibiotics for pneumonia. I do not recommend any additional workup. WALDEMAR GARAY MD Sep 19, 2016 10:19
[2016-09-19 11:00] VITALS: BP 118/58
--- NOTE | 2016-09-19 11:25 | PDOC ---
PROGRESS NOTES Chief Complaint Chief Complaint Cellulitis ASSESSMENT AND PLAN: 1. Cellulitis: on Keflex. 2. UTI: awaiting cult result. Keflex empirically 3. CHF: diastolic on echo 2 weeks ago. CXR essentially unchanged. no respir issues, but significant edema. gentle diuresis w/ lasix IV 4. Afib: rate controlled. no AOC due to hx GIB 5. 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, on chronic PO iron Vitals Vitals Vital Signs Date Time Temp Pulse Resp B/P Pulse Ox O2 Delivery O2 Flow Rate FiO2 09/19/16 11:00 95.7 75 16 118/58 93 Room Air 95.7 Physical Exam General: Alert, Cooperative Heart: Other (irreg, irreg) Lungs: Clear Abdomen: Normal bowel sounds, No tenderness Extremities: Other (2+ LE edema) Skin: Other (mild bilat erythema over mid-medial shins bilat) Labs LABS Laboratory Tests Test 09/18/16 11:50 ZP-[id number]-Type Natriuretic Peptide 3092pg/mL (0-449) Procalcitonin < 0.10ng/mL (0.00-0.10) Review of Systems Review of Systems feels breathing is getting better, still LE edema WALTER VELEZ MD Sep 19, 2016 11:25
[2016-09-19] MEDS ORDERED: FUROSEMIDE 20 MG/2 ML VIAL. IVP ONE (12:00)
[2016-09-19 15:00] VITALS: BP 124/58
[2016-09-19 19:59] VITALS: BP_SYST 138; BP_SYST 139; BP_DIAS 39; BP_DIAS 72
[2016-09-19] MEDS ORDERED: FERROUS SULFATE 325 MG TABLET. PO SCH (21:00)
[2016-09-19] MEDS: ENOXAPARIN 40 MG/0.4 ML SYRINGE. SQ SCH (23:46)
[2016-09-19 23:59] VITALS: BP 152/69
[2016-09-20 03:59] VITALS: BP 138/60
[2016-09-20 05:53] LABS: BASO # 0.1 x10^3/uL (0.0-0.2); BASO % 3 % (0-3); EOS % 8 % (0-3); HEMATOCRIT 31.5 % (36.0-47.0); HEMOGLOBIN 9.7 g/dL (12.0-15.5); LYMPH # 0.9 x10^3/uL (1.0-4.8); LYMPH % 22 % (24-48); MEAN CORPUSCULAR HEMOGLOBIN 24 pg (25-35); MEAN CORPUSCULAR HGB CONC 31 g/dL (31-37); MEAN CORPUSCULAR VOLUME 80 fL (79-100); MONO % 14 % (0-9); NEUT % 52 % (31-73); PLATELET COUNT 327 x10^3/uL (140-400); RED BLOOD COUNT 3.95 x10^6/uL (3.50-5.40); RED CELL DISTRIBUTION WIDTH 35.7 % (11.5-14.5)
[2016-09-20 06:17] LABS: CALCIUM 8.9 mg/dL (8.5-10.1); CREATININE 0.7 mg/dL (0.6-1.0); GFR 79.3; MAGNESIUM 1.9 mg/dL (1.8-2.4); POTASSIUM 3.8 mmol/L (3.5-5.1)
[2016-09-20 07:00] VITALS: BP 151/67
[2016-09-20] MEDS: CEPHALEXIN 250 MG CAPSULE. PO SCH ×3 (08:33→20:12)
[2016-09-20] MEDS: ASPIRIN ENTERIC COATED 81 MG TABLET.DR. PO SCH (08:33)
[2016-09-20] MEDS: DOCUSATE SODIUM 100 MG CAPSULE. PO SCH (08:34)
[2016-09-20] MEDS: FLUCONAZOLE 100 MG TABLET. PO SCH (08:34)
[2016-09-20 11:00] VITALS: BP 149/65
[2016-09-20] MEDS: FERROUS SULFATE 325 MG TABLET. PO SCH (11:47)
--- NOTE | 2016-09-20 14:26 | PDOC ---
PULMONARY PROGRESS NOTES Subjective LESS SOA Vitals Vital Signs Date Time Temp Pulse Resp B/P Pulse Ox O2 Delivery O2 Flow Rate FiO2 09/20/16 11:00 97.8 85 18 149/65 95 Room Air 97.8 ROS: No Nausea, No Chest Pain, No Abdominal Pain, No Increase Cough General: Alert Lungs: Crackles Cardiovascular: S1, S2 Abdomen: Soft Neuro Exam: Alert Extremities: No Edema Labs Laboratory Tests Test 09/20/16 05:25 White Blood Count 4.0x10^3/uL (4.0-11.0) Red Blood Count 3.95x10^6/uL (3.50-5.40) Hemoglobin 9.7g/dL (12.0-15.5) Hematocrit 31.5% (36.0-47.0) Mean Corpuscular Volume 80fL (79-100) Mean Corpuscular Hemoglobin 24pg (25-35) Mean Corpuscular Hemoglobin Concent 31g/dL (31-37) Red Cell Distribution Width 35.7% (11.5-14.5) Platelet Count 327x10^3/uL (140-400) Neutrophils (%) (Auto) 52% (31-73) Lymphocytes (%) (Auto) 22% (24-48) Monocytes (%) (Auto) 14% (0-9) Eosinophils (%) (Auto) 8% (0-3) Basophils (%) (Auto) 3% (0-3) Neutrophils # (Auto) 2.1x10^3uL (1.8-7.7) Lymphocytes # (Auto) 0.9x10^3/uL (1.0-4.8) Monocytes # (Auto) 0.6x10^3/uL (0.0-1.1) Eosinophils # (Auto) 0.3x10^3/uL (0.0-0.7) Basophils # (Auto) 0.1x10^3/uL (0.0-0.2) Sodium Level 142mmol/L (136-145) Potassium Level 3.8mmol/L (3.5-5.1) Chloride Level 104mmol/L (98-107) Carbon Dioxide Level 35mmol/L (21-32) Anion Gap 3 (6-14) Blood Urea Nitrogen 8mg/dL (7-20) Creatinine 0.7mg/dL (0.6-1.0) Estimated GFR (Cockcroft-Gault) 79.3 Glucose Level 80mg/dL (70-99) Calcium Level 8.9mg/dL (8.5-10.1) Magnesium Level 1.9mg/dL (1.8-2.4) Laboratory Tests Test 09/20/16 05:25 White Blood Count 4.0x10^3/uL (4.0-11.0) Red Blood Count 3.95x10^6/uL (3.50-5.40) Hemoglobin 9.7g/dL (12.0-15.5) Hematocrit 31.5% (36.0-47.0) Mean Corpuscular Volume 80fL (79-100) Mean Corpuscular Hemoglobin 24pg (25-35) Mean Corpuscular Hemoglobin Concent 31g/dL (31-37) Red Cell Distribution Width 35.7% (11.5-14.5) Platelet Count 327x10^3/uL (140-400) Neutrophils (%) (Auto) 52% (31-73) Lymphocytes (%) (Auto) 22% (24-48) Monocytes (%) (Auto) 14% (0-9) Eosinophils (%) (Auto) 8% (0-3) Basophils (%) (Auto) 3% (0-3) Neutrophils # (Auto) 2.1x10^3uL (1.8-7.7) Lymphocytes # (Auto) 0.9x10^3/uL (1.0-4.8) Monocytes # (Auto) 0.6x10^3/uL (0.0-1.1) Eosinophils # (Auto) 0.3x10^3/uL (0.0-0.7) Basophils # (Auto) 0.1x10^3/uL (0.0-0.2) Sodium Level 142mmol/L (136-145) Potassium Level 3.8mmol/L (3.5-5.1) Chloride Level 104mmol/L (98-107) Carbon Dioxide Level 35mmol/L (21-32) Anion Gap 3 (6-14) Blood Urea Nitrogen 8mg/dL (7-20) Creatinine 0.7mg/dL (0.6-1.0) Estimated GFR (Cockcroft-Gault) 79.3 Glucose Level 80mg/dL (70-99) Calcium Level 8.9mg/dL (8.5-10.1) Magnesium Level 1.9mg/dL (1.8-2.4) Medications Active Scripts Medications Dose Route/Sig Days Date Category Aspir 81 (Aspirin) 81 Mg Tablet.dr 1 Tab PO DAILY 02/12/15 Rx Ferrous Sulfate 325 Mg Tablet 1 Tab PO BID 02/12/15 Rx Colace (Docusate Sodium) 100 Mg Capsule 100 Mg PO DAILY 02/12/15 Rx Impression . 1. Abnormal chest x-ray, I reviewed the CT of the chest that was obtained on 08/20 in comparison to previous CAT scan, there is marked improvement of the infiltrate and effusion, no further workup needed, I do not think that she has new pneumonia. 2. Negative venous Dopplers of lower extremities. 3. Lower extremity cellulitis per Infectious Disease Service. Plan . PT IMPROVING D/C PER PCP PLAN: Once again most of the CT scan findings compatible with combination of pneumonia and CHF have improved. No further workup is required. The patient was walking with physical therapy and was in no significant respiratory distress. I do not recommend antibiotics for pneumonia. I do not recommend any additional workup. WALDEMAR GARAY MD Sep 20, 2016 14:25
[2016-09-20 14:57] VITALS: BP 149/65
[2016-09-20 19:00] VITALS: BP 139/89
[2016-09-20 23:12] VITALS: BP 140/71
[2016-09-20] MEDS: ENOXAPARIN 40 MG/0.4 ML SYRINGE. SQ SCH (23:37)
[2016-09-21 02:34] VITALS: BP 141/77
[2016-09-21 07:35] VITALS: BP 152/72
[2016-09-21] MEDS: FERROUS SULFATE 325 MG TABLET. PO SCH (09:38)
[2016-09-21] MEDS: ASPIRIN ENTERIC COATED 81 MG TABLET.DR. PO SCH (09:39)
[2016-09-21] MEDS: FLUCONAZOLE 100 MG TABLET. PO SCH (09:39)
[2016-09-21] MEDS: DOCUSATE SODIUM 100 MG CAPSULE. PO SCH (09:39)
[2016-09-21] MEDS: CEPHALEXIN 250 MG CAPSULE. PO SCH ×3 (09:39→22:10)
--- NOTE | 2016-09-21 09:41 | PDOC ---
PULMONARY PROGRESS NOTES Subjective LESS SOA Vitals Vital Signs Date Time Temp Pulse Resp B/P Pulse Ox O2 Delivery O2 Flow Rate FiO2 09/21/16 07:35 97.9 77 18 152/72 97 Room Air 97.9 ROS: No Nausea, No Chest Pain, No Abdominal Pain, No Increase Cough General: Alert Lungs: Crackles Cardiovascular: S1, S2 Abdomen: Soft Neuro Exam: Alert Extremities: No Edema Labs Laboratory Tests Test 09/20/16 05:25 White Blood Count 4.0x10^3/uL (4.0-11.0) Red Blood Count 3.95x10^6/uL (3.50-5.40) Hemoglobin 9.7g/dL (12.0-15.5) Hematocrit 31.5% (36.0-47.0) Mean Corpuscular Volume 80fL (79-100) Mean Corpuscular Hemoglobin 24pg (25-35) Mean Corpuscular Hemoglobin Concent 31g/dL (31-37) Red Cell Distribution Width 35.7% (11.5-14.5) Platelet Count 327x10^3/uL (140-400) Neutrophils (%) (Auto) 52% (31-73) Lymphocytes (%) (Auto) 22% (24-48) Monocytes (%) (Auto) 14% (0-9) Eosinophils (%) (Auto) 8% (0-3) Basophils (%) (Auto) 3% (0-3) Neutrophils # (Auto) 2.1x10^3uL (1.8-7.7) Lymphocytes # (Auto) 0.9x10^3/uL (1.0-4.8) Monocytes # (Auto) 0.6x10^3/uL (0.0-1.1) Eosinophils # (Auto) 0.3x10^3/uL (0.0-0.7) Basophils # (Auto) 0.1x10^3/uL (0.0-0.2) Sodium Level 142mmol/L (136-145) Potassium Level 3.8mmol/L (3.5-5.1) Chloride Level 104mmol/L (98-107) Carbon Dioxide Level 35mmol/L (21-32) Anion Gap 3 (6-14) Blood Urea Nitrogen 8mg/dL (7-20) Creatinine 0.7mg/dL (0.6-1.0) Estimated GFR (Cockcroft-Gault) 79.3 Glucose Level 80mg/dL (70-99) Calcium Level 8.9mg/dL (8.5-10.1) Magnesium Level 1.9mg/dL (1.8-2.4) Medications Active Scripts Medications Dose Route/Sig Days Date Category Aspir 81 (Aspirin) 81 Mg Tablet.dr 1 Tab PO DAILY 02/12/15 Rx Ferrous Sulfate 325 Mg Tablet 1 Tab PO BID 02/12/15 Rx Colace (Docusate Sodium) 100 Mg Capsule 100 Mg PO DAILY 02/12/15 Rx Impression . 1. Abnormal chest x-ray, I reviewed the CT of the chest that was obtained on 08/20 in comparison to previous CAT scan, there is marked improvement of the infiltrate and effusion, no further workup needed, I do not think that she has new pneumonia. 2. Negative venous Dopplers of lower extremities. 3. Lower extremity cellulitis per Infectious Disease Service. Plan . PT IMPROVING D/C PER PCP RESP STATUS IS COMPENSATED Once again most of the CT scan findings compatible with combination of pneumonia and CHF have improved. No further workup is required. The patient was walking with physical therapy and was in no significant respiratory distress. I do not recommend antibiotics for pneumonia. I do not recommend any additional workup. WALDEMAR GARAY MD Sep 21, 2016 09:41
[2016-09-21 10:07] VITALS: BP 139/62
--- NOTE | 2016-09-21 14:54 | PDOC ---
PROGRESS NOTES Chief Complaint Chief Complaint Cellulitis ASSESSMENT AND PLAN: 1. Cellulitis: on Keflex. 2. UTI: cx pending, Keflex empirically 3. CHF: chronic diastolic failure, o. CXR essentially unchanged. 4. Afib: rate controlled. no AOC due to hx GIB 5. 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 She lives with her son, I could reach Sohail by phone. OT ordered, I asked her to participate. She has "a few" steps in her house. appears very weak, vision poor. I am worried about DC home, problems discussed with social work, consider home health, would prefer PT clearance for DC Vitals Vitals Vital Signs Date Time Temp Pulse Resp B/P Pulse Ox O2 Delivery O2 Flow Rate FiO2 09/21/16 10:07 98.1 68 19 139/62 98 Room Air 98.1 Physical Exam General: Alert, Cooperative, No acute distress Heart: Regular rate, Other (irreg, irreg) Lungs: Clear, Crackles Abdomen: Normal bowel sounds, No tenderness Extremities: No clubbing, No edema, Other (2+ LE edema) Skin: Other (mild bilat erythema over mid-medial shins bilat) Review of Systems Review of Systems no n.v.d no cough or dyspnea Assessment and Plan Assessmemt and Plan DC when better plan avail, or her son can be reached, she lives with him Problems Medical Problems: (1) Cellulitis Status: Acute Problems: Comment Review of Relevant I have reviewed the following items lavern (where applicable) has been applied. Labs Laboratory Tests Test 09/20/16 05:25 White Blood Count 4.0x10^3/uL (4.0-11.0) Red Blood Count 3.95x10^6/uL (3.50-5.40) Hemoglobin 9.7g/dL (12.0-15.5) Hematocrit 31.5% (36.0-47.0) Mean Corpuscular Volume 80fL (79-100) Mean Corpuscular Hemoglobin 24pg (25-35) Mean Corpuscular Hemoglobin Concent 31g/dL (31-37) Red Cell Distribution Width 35.7% (11.5-14.5) Platelet Count 327x10^3/uL (140-400) Neutrophils (%) (Auto) 52% (31-73) Lymphocytes (%) (Auto) 22% (24-48) Monocytes (%) (Auto) 14% (0-9) Eosinophils (%) (Auto) 8% (0-3) Basophils (%) (Auto) 3% (0-3) Neutrophils # (Auto) 2.1x10^3uL (1.8-7.7) Lymphocytes # (Auto) 0.9x10^3/uL (1.0-4.8) Monocytes # (Auto) 0.6x10^3/uL (0.0-1.1) Eosinophils # (Auto) 0.3x10^3/uL (0.0-0.7) Basophils # (Auto) 0.1x10^3/uL (0.0-0.2) Sodium Level 142mmol/L (136-145) Potassium Level 3.8mmol/L (3.5-5.1) Chloride Level 104mmol/L (98-107) Carbon Dioxide Level 35mmol/L (21-32) Anion Gap 3 (6-14) Blood Urea Nitrogen 8mg/dL (7-20) Creatinine 0.7mg/dL (0.6-1.0) Estimated GFR (Cockcroft-Gault) 79.3 Glucose Level 80mg/dL (70-99) Calcium Level 8.9mg/dL (8.5-10.1) Magnesium Level 1.9mg/dL (1.8-2.4) Microbiology 09/17/16 Urine Culture - Final, Complete 09/17/16 Urine Culture Result 1 (PATRICIA) - Final, Complete Medications Current Medications Enoxaparin Sodium 40 mg 40 mg Q24H SQ Last administered on 09/20/16 23:37; Start 09/17/16 at 23:00 Ceftriaxone Sodium/Sodium Chloride (Rocephin/Iv Sodium Chloride 0.9% 50ml) 50 ml @ 100 mls/hr Q24H IV Last administered on 09/18/16 00:42; Start 09/17/16 at 23:00; Stop 09/18/16 at 11:20; Status DC Aspirin (Ecotrin) 81 mg DAILY PO Last administered on 09/21/16 09:39; Start at 09:00 Docusate Sodium (Colace) 100 mg DAILY PO Last administered on 09/21/16 09:39; Start 09/18/16 at 09:00 Ferrous Sulfate (Feosol) 325 mg BID PO Last administered on 09/19/16 08:16; Start 09/18/16 at 09:00; Stop 09/19/16 at 13:24; Status DC Ferrous Sulfate (Feosol) 325 mg STK-MED ONCE PO ; Start 09/18/16 at 08:05; Stop 09/18/16 at 08:06; Status DC Fluconazole (Diflucan) 100 mg DAILY PO Last administered on 09/21/16 09:39; Start 09/18/16 at 12:00 Cephalexin HCl (Keflex) 500 mg TID PO Last administered on 09/21/16 14:12; Start 09/18/16 at 14:00 Ferrous Sulfate (Feosol) 325 mg STK-MED ONCE PO ; Start 09/18/16 at 20:33; Stop 09/18/16 at 20:34; Status DC Ferrous Sulfate (Feosol) 325 mg STK-MED ONCE PO ; Start 09/19/16 at 07:43; Stop 09/19/16 at 07:44; Status DC Furosemide (Lasix) 20 mg 1X ONCE IVP Last administered on 09/19/16 12:59; Start 09/19/16 at 12:00; Stop 09/19/16 at 12:01; Status DC Ferrous Sulfate (Feosol) 325 mg DAILYWBKFT PO Last administered on 09/21/16 09: 38; Start 09/20/16 at 12:00 Ferrous Sulfate (Feosol) 325 mg BID PO ; Start 09/19/16 at 21:00; Stop 09/19/16 at 21:00; Status DC Active Scripts Active Aspir 81 (Aspirin) 81 Mg Tablet.dr 1 Tab PO DAILY Ferrous Sulfate 325 Mg Tablet 1 Tab PO BID Colace (Docusate Sodium) 100 Mg Capsule 100 Mg PO DAILY Vitals/I & O Vital Sign - Last 24 Hours 09/20/16 09/20/16 09/20/16 09/20/16 14:57 19:00 20:00 23:12 Temp 97.8 97.6 97.6 97.8 97.6 97.6 Pulse 85 76 71 Resp 18 B/P 149/65 139/89 140/71 Pulse Ox 95 98 93 O2 Delivery Room Air Room Air Room Air Room Air 09/21/16 09/21/16 09/21/16 09/21/16 02:34 07:35 08:00 10:07 Temp 97.5 97.9 98.1 97.5 97.9 98.1 Pulse 75 77 68 Resp B/P 141/77 152/72 139/62 Pulse Ox 95 97 98 O2 Delivery Room Air Room Air Room Air Room Air Intake and Output 09/20/16 09/20/16 09/21/16 15:00 23:00 07:00 Intake Total 490 ml 602 ml 700 ml Balance 490 ml 602 ml 700 ml JESSE SOTELO MD Sep 21, 2016 14:54
[2016-09-21 15:45] VITALS: BP 137/75
[2016-09-21 19:00] VITALS: BP 134/77
[2016-09-21] MEDS: ENOXAPARIN 40 MG/0.4 ML SYRINGE. SQ SCH (22:10)
[2016-09-21 22:55] VITALS: BP 157/75
[2016-09-22 03:00] VITALS: BP 150/74
[2016-09-22 07:00] VITALS: BP 165/81
[2016-09-22] MEDS: FERROUS SULFATE 325 MG TABLET. PO SCH (08:38)
[2016-09-22] MEDS: CEPHALEXIN 250 MG CAPSULE. PO SCH ×2 (08:38→13:53)
[2016-09-22] MEDS: ASPIRIN ENTERIC COATED 81 MG TABLET.DR. PO SCH (08:38)
[2016-09-22] MEDS: DOCUSATE SODIUM 100 MG CAPSULE. PO SCH (08:38)
[2016-09-22] MEDS: FLUCONAZOLE 100 MG TABLET. PO SCH (08:39)
--- NOTE | 2016-09-22 08:48 | PDOC ---
PULMONARY PROGRESS NOTES Subjective no soa wants to go home Vitals Vital Signs Date Time Temp Pulse Resp B/P Pulse Ox O2 Delivery O2 Flow Rate FiO2 09/22/16 07:00 97.7 82 18 165/81 97 Room Air 97.7 ROS: No Nausea, No Chest Pain, No Abdominal Pain, No Increase Cough General: Alert, No acute distress Lungs: Other (decrease bases) Cardiovascular: S1, S2 Abdomen: Soft Neuro Exam: Alert Extremities: Other (1+edema) Medications Active Scripts Medications Dose Route/Sig Days Date Category Aspir 81 (Aspirin) 81 Mg Tablet.dr 1 Tab PO DAILY 02/12/15 Rx Ferrous Sulfate 325 Mg Tablet 1 Tab PO BID 02/12/15 Rx Colace (Docusate Sodium) 100 Mg Capsule 100 Mg PO DAILY 02/12/15 Rx Impression . 1. Abnormal chest x-ray, Overall better when c/w old CXR. there is improvement of the infiltrate and effusion, no further workup needed, I do not think that she has new pneumonia. 2. Negative venous Dopplers of lower extremities. 3. Lower extremity cellulitis per Infectious Disease Service. Plan . PT IMPROVING D/C PER PCP RESP STATUS IS COMPENSATED NO FURTHER W/U PULMONARY ANGI YORK MD Sep 22, 2016 08:48
[2016-09-22] MEDS ORDERED: DOXY100C2 PO (09:21)
--- NOTE | 2016-09-22 09:23 | PDOC3 ---
Discharge Summary Visit Information Date of Admission: Sep 17, 2016 Date of Discharge: Sep 22, 2016 Admitting Diagnosis: cellulitis Final Diagnosis 1. Cellulitis: 2. UTI: 3. CHF: chronic diastolic failure, 4. Afib: rate controlled. 5. 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 Bradley is a 86 old admitted weakness and celluitis and pain, UTI, mixed dena cellulitis cleared nicely on keflex, change to doxy for 5 more days at DC, discussed with Pulm consult Discharge Information Condition at Discharge: Improved Follow Up: Weeks Disposition/Orders: D/C to Home Scheduled Aspirin (Aspir 81) 1 TAB PO DAILY Docusate Sodium (Colace) 100 MG PO DAILY Ferrous Sulfate (Ferrous Sulfate) 1 TAB PO BID Patient Instructions Patient Instructions time < 30 min pt declined home health lives with son she walked > 250 ft w. JESSE Doyle MD Sep 22, 2016 09:23
[2016-09-22 10:57] VITALS: BP 160/76
== END 2016-09-22 14:10 | disposition home health service (06) | DRG 603 ==
LOC: ER 13:17 → ED HOLD 16:31 → 5 SOUTH 20:01
PROVIDERS: ADMIT Internal Medicine; ATTEND Internal Medicine
DX: L03.116 Cellulitis of left lower limb (principal); N39.0 Urinary tract infection, site not specified; I50.32 Chronic diastolic (congestive) heart failure; K92.2 Gastrointestinal hemorrhage, unspecified; B35.9 Dermatophytosis, unspecified; D64.9 Anemia, unspecified; I48.91 Unspecified atrial fibrillation; I87.2 Venous insufficiency (chronic) (peripheral); Z82.49 Family history of ischemic heart disease and other diseases of the circulatory system; Q27.33 Arteriovenous malformation of digestive system vessel
CPT/HCPCS: 36415; 71010; 80048; 80053; 81001; 83735; 83880; 84145; 84484; 85007; 85027; 87086; 93005; 93970; 96374; J0696; J1650; 97116; 99285-25

== ENCOUNTER 2017-12-14 11:26 | Emergency (ER) | payer MEDICARE | END 2017-12-14 13:14 | disposition home or self-care (01) | LOC: ER 11:26 | DX: M85.821 Other specified disorders of bone density and structure, right upper arm (principal); M19.031 Primary osteoarthritis, right wrist; Z86.718 Personal history of other venous thrombosis and embolism; X50.9XXA Other and unspecified overexertion or strenuous movements or postures, initial encounter; Y93.89 Activity, other specified; Y99.8 Other external cause status; Y92.89 Other specified places as the place of occurrence of the external cause | CPT/HCPCS: 29125; 73110; 73130; 99284-25 ==

== ENCOUNTER 2018-12-04 17:13 | Inpatient (IN) | payer MEDICARE ==
[~2018-12-04] VITALS: Ht 157.5 cm; Wt 64.0 kg
[~2018-12-04 17:13] MED LIST changes: -ASPI325T4 PO; +ASPI325T8 PO; +DICL100G18 TP; +DOCU-109 PO; -DOCU-27 PO; +DOXY100C2 PO; +DOXY100T PO; -FERR-26 PO; +FERR325T14 PO; +FURO-69 PO; +MUPI22OI2 TP
--- NOTE | 2018-12-04 18:07 | PHYS DOC ---
Past Medical History Past Medical History: No Pertinent History Additional Past Medical Histor: BLOOD TRANSFUSION, CATARACTS (DENA SERRANO MD) Past Surgical History: Other Additional Past Surgical Histo: BILATERAL EYE CORRECTION (DENA SERRANO MD) Alcohol Use: None Drug Use: None (DENA SERRANO MD) Adult General Chief Complaint Chief Complaint: CHEST PAIN HPI HPI Patient is a 88 year old female who brought in by EMS because of chest pain. Patient complaining of intermittent episodes of substernal sharp chest pain for the last 4 days without relation to activity or position. Patient complaining of shortness of breath, nausea, dizziness and palpitation during episodes of chest pain and states the pain lasts for a few minutes to a few hours and repeated frequently and rated her pain 10 over 10. Patient denies history of cardiac problem and other medical problem. patient denies chest pain at arrival to ER. Patient had 324 mg of aspirin given by EMS. (DENA SERRANO MD) Review of Systems Review of Systems Constitutional: Denies fever or chills [] Eyes: Denies change in visual acuity, redness, or eye pain [] HENT: Denies nasal congestion or sore throat [] Respiratory: Denies cough, reports shortness of breath [] Cardiovascular: No additional information not addressed in HPI [] GI: Denies abdominal pain, vomiting, bloody stools or diarrhea , reports nausea [] : Denies dysuria or hematuria [] Musculoskeletal: Denies back pain or joint pain [] Integument: Denies rash or skin lesions [] Neurologic: Denies headache, focal weakness or sensory changes [] Endocrine: Denies polyuria or polydipsia [] All other systems were reviewed and found to be within normal limits, except as documented in this note. (DENA SERRANO MD) Current Medications Current Medications Current Medications Medications (Trade) Dose Ordered Sig/Tu Start Time Stop Time Status Last Admin Dose Admin Neomycin/ Polymyxin/ Bacitracin (Triple Antibiotic Ointment) 1 pkt 1X ONCE 12/04/18 19:00 12/04/18 19:01 DC 12/04/18 18:50 1 PKT Piperacillin Sod/ Tazobactam Sod 4.5 gm/Sodium Chloride 100 ml @ 200 mls/hr 1X ONCE 12/04/18 19:00 12/04/18 19:29 DC 12/04/18 19:43 200 MLS/HR Sodium Chloride 1,000 ml @ 1,000 mls/hr 1X ONCE 12/04/18 18:30 12/04/18 19:29 DC 12/04/18 18:20 1,000 MLS/HR (CHADWICK MILLER DO) Allergies Allergies Allergies Coded Allergies Type Severity Reaction Last Updated Verified No Known Drug Allergies 12/14/17 No (CHADWICK MILLER DO) Physical Exam Physical Exam Constitutional: No acute distress, non-toxic appearance, pallor. [] HENT: Normocephalic, atraumatic Eyes: PERRLA, EOMI, conjunctiva normal, no discharge. [] Neck: Normal range of motion, no tenderness, supple, no stridor. [] Cardiovascular: Irregularly irregular rhythm, no murmur [] Lungs & Thorax: Bilateral breath sounds clear to auscultation [] Abdomen: Bowel sounds normal, soft, no tenderness, no masses, no pulsatile masses. [] Skin: Warm, dry, no erythema, no rash. [] Back: No tenderness, no CVA tenderness. [] Extremities: No tenderness, no cyanosis, no clubbing, ROM intact, bilateral lower extremity trace edema. [] Neurologic: Alert and oriented X 3, normal motor function, normal sensory function, no focal deficits noted. [] Psychologic: Affect normal, judgement normal, mood normal. [] (DENA SERRANO MD) Physical Exam Constitutional: Well developed, well nourished, pallor noted, non-toxic appearance HENT: Normocephalic, atraumatic, oropharynx moist Eyes: Conjunctiva normal, no discharge Neck: Normal range of motion, no tenderness, supple Cardiovascular: Heart rate normal, regular rhythm Lungs & Thorax: Bilateral breath sounds clear to auscultation, no wheezing Abdomen: Soft, no tenderness Rectal: Design Analyst RN; nonbleeding external hemorrhoids noted; Stool- dark brown Skin: Warm, dry, no erythema, pallor Extremities: No tenderness, ROM intact, no edema Neurologic: Alert and oriented X 3, no focal deficits noted Psychologic: Affect normal, judgement normal (CHADWICK MILLER DO) Current Patient Data Vital Signs Vital Signs Date Time Temp Pulse Resp B/P (MAP) Pulse Ox O2 Delivery O2 Flow Rate FiO2 12/04/18 19:00 61 18 121/57 (78) 99 Room Air 12/04/18 17:18 98.0 98.0 (MILLER,CHADWICK R DO) Lab Values Laboratory Tests Test 12/04/18 17:50 12/04/18 18:05 12/04/18 18:45 12/04/18 18:47 Prothrombin Time 15.1 SEC (11.7-14.0) H Prothrombin Time INR 1.2 (0.8-1.1) H PTT 27 SEC (24-38) White Blood Count 2.9 x10^3/uL (4.0-11.0) L Red Blood Count 2.10 x10^6/uL (3.50-5.40) L Hemoglobin 3.4 g/dL (12.0-15.5) *L Hematocrit 11.8 % (36.0-47.0) *L Mean Corpuscular Volume 56 fL (79-100) L Mean Corpuscular Hemoglobin 16 pg (25-35) L Mean Corpuscular Hemoglobin Concent 29 g/dL (31-37) L Red Cell Distribution Width 20.8 % (11.5-14.5) H Platelet Count 236 x10^3/uL (140-400) Neutrophils (%) (Auto) 45 % (31-73) Lymphocytes (%) (Auto) 25 % (24-48) Monocytes (%) (Auto) 24 % (0-9) H Eosinophils (%) (Auto) 3 % (0-3) Basophils (%) (Auto) 2 % (0-3) Neutrophils # (Auto) 1.3 x10^3uL (1.8-7.7) L Lymphocytes # (Auto) 0.7 x10^3/uL (1.0-4.8) L Monocytes # (Auto) 0.7 x10^3/uL (0.0-1.1) Eosinophils # (Auto) 0.1 x10^3/uL (0.0-0.7) Basophils # (Auto) 0.1 x10^3/uL (0.0-0.2) Segmented Neutrophils % 61 % (35-66) Lymphocytes % 27 % (24-48) Monocytes % 10 % (0-10) Eosinophils % 1 % (0-5) Basophils % 1 % (0-3) Nucleated Red Blood Cells 1 Platelet Estimate Adequate (ADEQUATE) Polychromasia Slight Hypochromasia Marked Anisocytosis Mod Microcytosis Marked Ovalocytes Few Sodium Level 141 mmol/L (136-145) Potassium Level 2.9 mmol/L (3.5-5.1) *L Chloride Level 103 mmol/L (98-107) Carbon Dioxide Level 29 mmol/L (21-32) Anion Gap 9 (6-14) Blood Urea Nitrogen 11 mg/dL (7-20) Creatinine 0.9 mg/dL (0.6-1.0) Estimated GFR (Cockcroft-Gault) 59.1 BUN/Creatinine Ratio 12 (6-20) Glucose Level 104 mg/dL (70-99) H Lactic Acid Level 1.1 mmol/L (0.4-2.0) Calcium Level 8.2 mg/dL (8.5-10.1) L Magnesium Level 1.7 mg/dL (1.8-2.4) L Total Bilirubin 0.8 mg/dL (0.2-1.0) Aspartate Amino Transferase (AST) 9 U/L (15-37) L Alanine Aminotransferase (ALT) 10 U/L (14-59) L Alkaline Phosphatase 67 U/L (46-116) Creatine Kinase 8 U/L (26-192) L Troponin I Quantitative 0.033 ng/mL (0.000-0.055) MZ-Pix-E-Type Natriuretic Peptide 2619 pg/mL (0-449) H Total Protein 5.6 g/dL (6.4-8.2) L Albumin 2.9 g/dL (3.4-5.0) L Albumin/Globulin Ratio 1.1 (1.0-1.7) Lipase 82 U/L (73-393) Stool Occult Blood Positive (NEG) Urine Collection Type Unknown Urine Color Yellow Urine Clarity Clear Urine pH 5.5 Urine Specific [place] 1.015 Urine Protein Negative mg/dL (NEG-TRACE) Urine Glucose (UA) Negative mg/dL (NEG) Urine Ketones (Stick) Negative mg/dL (NEG) Urine Blood Negative (NEG) Urine Nitrite Negative (NEG) Urine Bilirubin Negative (NEG) Urine Urobilinogen Dipstick 1.0 mg/dL (0.2 mg/dL) Urine Leukocyte Esterase Negative (NEG) Urine RBC 0 /HPF (0-2) Urine WBC 0 /HPF (0-4) Urine Squamous Epithelial Cells None /LPF Urine Amorphous Sediment Present /HPF Urine Bacteria 0 /HPF (0-FEW) Urine Mucus Mod /LPF Laboratory Tests 12/04/18 18:05 Laboratory Tests 12/04/18 18:05 (CHADWICK MILLER DO) EKG EKG EKG interpreted by me. EKG at 1727 showed a regular rhythm, inverted T in anteroseptal leads that was not seen in this EKG, (DENA SERRANO MD) Radiology/Procedures Radiology/Procedures [] (DENA SERRANO MD) Radiology/Procedures PROCEDURE: PORTABLE CHEST 1V Single view chest dated 12/04/2018. Comparison made to 05/17/2018. CLINICAL INDICATION: Chest pain. FINDINGS: Single upright portable exam performed. Heart and mediastinal contours are stable. Prominent hiatal hernia, unchanged. There is a focal zone of consolidation at the lateral left base that is new from prior study. The right lung is clear. No pneumothorax. IMPRESSION: Left basilar consolidation, atelectasis versus pneumonia. Developing mass cannot be excluded. Follow-up imaging after treatment to ensure resolution. Electronically signed by: Chadwick Santiago MD (12/04/2018 6:12 PM) [facility] (CHADWICK MILLER DO) Course & Med Decision Making Course & Med Decision Making Pertinent Labs and Imaging are pending. Sign out given to at 1800 for further evaluation and final disposition. Discussed current findings and plan with patient and family, who acknowledge understanding and agreement. (DENA SERRANO MD) Course & Med Decision Making Sign out received from Dr. Serrano for patient with report of chest pain. Patien t appears very pale. EKG reviewed with new ST depressions in V4-V6 leads. Labs obtained and posted to chart. Hemoglobin significantly decreased down to 3.4. Occult stool positive. NO gross blood/melena on exam. BP stable. CXR with concern for pneumonia. Leukopenia also noted. Lactic acid WNL. Given leukopenia and CXR findings, empiric antibiotics given. Type and cross 2 units ordered. Potassium and Magnesium replaced. Patient requiring admission for further evaluation and treatment. Discussed with Dr. Espinoza (hospitalist) who is in agreement with admission. Discussed case with (GI) who is in agreement with consultation. Discussed findings and plan with patient, who acknowledges understanding and agreement. (CHADWICK MILLER DO) Dragon Disclaimer Dragon Disclaimer This electronic medical record was generated, in whole or in part, using a voice recognition dictation system. (DENA SERRANO MD) Departure Departure Impression: Primary Impression: Severe anemia Additional Impressions: Chest pain Hypokalemia Hypomagnesemia Pneumonia Disposition: 09 ADMITTED INPATIENT Admitting Physician: NADEEM Caldera) (CHADWICK MILLER DO) Condition: CRITICAL Referrals: NO PCP (PCP) The HEART Score for CP Pts HEART Score for Chest Pain: HEART Score for Chest Pain Response (Comments) Value History Moderately Suspicious [address] Depression 2 Age > 65 2 Risk Factors No Risk Factors 0 Troponin < Normal Limit 0 Total 5 Risk Factors: Risk Factors: DM, Current or recent (<one month) smoker, HTN, HLP, family history of CAD, obesity. Risk Scores: Score 0 - 3: 2.5% MACE over next 6 weeks - Discharge Home Score 4 - 6: 20.3% MACE over next 6 weeks - Admit for Clinical Observation Score 7 - 10: 72.7% MACE over next 6 weeks - Early Invasive Strategies (CHADWICK MILLER DO) Critical Care Time Critical care time was 30 minutes which includes time at bedside, spent in discussion of patient's care with specialists and/or family members, with interpretation of laboratory and/or radiological studies and is exclusive of procedures. (CHADWICK MILLER DO) Problem Qualifiers Additional Impressions: Chest pain Chest pain type: unspecified Qualified Codes: R07.9 - Chest pain, unspecified Pneumonia Pneumonia type: due to unspecified organism Laterality: left Lung location: lower lobe of lung Qualified Codes: J18.1 - Lobar pneumonia, unspecified organism DENA SERRANO MD Dec 04, 2018 18:07 CHADWICK MILLER DO Dec 04, 2018 20:44
--- NOTE | 2018-12-04 18:15 | RAD ---
Single view chest dated 12/04/2018. Comparison made to 05/17/2018. CLINICAL INDICATION: Chest pain. FINDINGS: Single upright portable exam performed. Heart and mediastinal contours are stable. Prominent hiatal hernia, unchanged. There is a focal zone of consolidation at the lateral left base that is new from prior study. The right lung is clear. No pneumothorax. IMPRESSION: Left basilar consolidation, atelectasis versus pneumonia. Developing mass cannot be excluded. Follow-up imaging after treatment to ensure resolution. Electronically signed by: Chadwick Santiago MD (12/04/2018 6:12 PM) [facility]
[2018-12-04] MEDS ORDERED: IV NORMAL SALINE 1000ML BAG 1,000 ML IV ONE (18:30)
[2018-12-04 18:47] LABS: BASO # 0.1 x10^3/uL (0.0-0.2); BASO % 2 % (0-3); EOS # 0.1 x10^3/uL (0.0-0.7); EOS % 3 % (0-3); LYMPH # 0.7 x10^3/uL (1.0-4.8); LYMPH % 25 % (24-48); MEAN CORPUSCULAR HEMOGLOBIN 16 pg (25-35); MEAN CORPUSCULAR HGB CONC 29 g/dL (31-37); MEAN CORPUSCULAR VOLUME 56 fL (79-100); MONO # 0.7 x10^3/uL (0.0-1.1); MONO % 24 % (0-9); NEUT # 1.3 x10^3uL (1.8-7.7); NEUT % 45 % (31-73); PLATELET COUNT 236 x10^3/uL (140-400); RED CELL DISTRIBUTION WIDTH 20.8 % (11.5-14.5); WHITE BLOOD COUNT 2.9 x10^3/uL (4.0-11.0)
[2018-12-04 18:51] LABS: HEMATOCRIT 11.8 % (36.0-47.0); HEMOGLOBIN 3.4 g/dL (12.0-15.5)
[2018-12-04 18:52] LABS: PROTHROMBIN TIME PATIENT 15.1 SEC (11.7-14.0)
[2018-12-04 18:57] LABS: BILIRUBIN,URINE NEGATIVE (NEG); CLARITY,URINE CLEAR; COLOR,URINE YELLOW; NITRITE,URINE NEGATIVE (NEG); PH,URINE 5.5; PROTEIN,URINE NEGATIVE (NEG-TRACE)
[2018-12-04] MEDS ORDERED: PIPERACILLIN/TAZOBACTAM 4.5 GM in IV NORMAL SALINE 100ML 100 ML IV ONE (19:00)
[2018-12-04] MEDS ORDERED: NEOMY/BACITR/POLYMYXIN OINT PACKET. TP ONE (19:00)
[2018-12-04 19:02] LABS: RBC,URINE 0 /HPF (0-2)
[2018-12-04 19:03] LABS: AMORPHOUS SEDIMENT,UR PRESENT /HPF; BACTERIA,URINE 0 /HPF (0-FEW); WBC,URINE 0 /HPF (0-4)
[2018-12-04 19:05] LABS: FECAL OB PT POSITIVE (NEG)
[2018-12-04 19:07] LABS: ALBUMIN 2.9 g/dL (3.4-5.0); ALBUMIN/GLOBULIN RATIO 1.1 (1.0-1.7); CALCIUM 8.2 mg/dL (8.5-10.1); CREATININE 0.9 mg/dL (0.6-1.0); GFR 59.1; MAGNESIUM 1.7 mg/dL (1.8-2.4); TOTAL BILIRUBIN 0.8 mg/dL (0.2-1.0); TOTAL PROTEIN 5.6 g/dL (6.4-8.2)
[2018-12-04 19:09] LABS: POTASSIUM 2.9 mmol/L (3.5-5.1)
[2018-12-04 19:23] LABS: % BASOS 1 % (0-3); % EOS 1 % (0-5); % LYMPHS 27 % (24-48); % MONOS 10 % (0-10); % SEGS 61 % (35-66); ANISOCYTOSIS MOD; HYPOCHROMIA MARKED; MICROCYTOSIS MARKED; NUCLEATED RBC 1; OVALOCYTES FEW; PLT ESTIMATE ADEQUATE (ADEQUATE); POLYCHROMASIA SLIGHT
[2018-12-04] MEDS ORDERED: PANTOPRAZOLE SODIUM IV DRIP 80 MG in IV NORMAL SALINE 100ML 100 ML IV ONE (19:45)
[2018-12-04] MEDS ORDERED: POTASSIUM CHLORIDE 20 MEQ TABLET.ER. PO ONE (19:45)
[2018-12-04] MEDS ORDERED: PANTOPRAZOLE IV PUSH 40 MG VIAL. IVP ONE (19:45)
[2018-12-04] MEDS ORDERED: MAGNESIUM SULFATE 2GM 50 ML IV ONE (19:45)
[2018-12-04] MEDS ORDERED: ONDANSETRON PF 4 MG/2 ML VIAL. IV PRN (19:45)
--- NOTE | 2018-12-04 22:00 | NUR ---
Pt admission done mostly by past hospital visits. Pt is poor historian and needs frequent reminders that she is in the hospital and that she is receiving blood transfusions. Call light within reach. Bed alarm is on. Will continue to monitor.
--- NOTE | 2018-12-04 22:07 | PDOC1 ---
History and Physical Date of Admission: Date of Admission DATE: 12/04/18 TIME: 22:04 Chief Complaint: Problems: (1) Insect bites (2) Symptomatic anemia (3) Anemia (4) Cellulitis (5) Osteopenia (6) Osteoarthritis of left wrist (7) Hypokalemia (8) Hypomagnesemia (9) Pneumonia (10) Severe anemia (11) Chest pain Chief Complain: Chest pain History of Present Illness: HPI: This is an elderly female who presented with chest pain she's not the greatest historian She did have associated nausea palpitations and shortness of breath On the ER we checked some labs her hemoglobin is 3.2 She is also guaiac positive Rates her symptoms at 7 out of 10 She is extremely pale-appearing She tried taking some of her meds with that and work Describes her symptoms as irritating I discussed case with ER physician were going to admit the patient and consult GI and transfused several units of packed red blood cells Past Medical/Surgical History: PMH/PSH: Previous anemia Osteopenia Previous pneumonias Arthritis Past Medical History: No Pertinent History Additional Past Medical Histor: BLOOD TRANSFUSION, CATARACTS (DENA SERRANO MD) Past Surgical History: Other Additional Past Surgical Histo: BILATERAL EYE CORRECTION Allergies: Allergies: Coded Allergies: No Known Drug Allergies (Unverified , 12/14/17) Family History: Family History: Hypertension Social History: Social Hisoty: She is retired she doesn't drink smoke or take drugs Current Medications: Current Medications Current Medications Sodium Chloride 1,000 ml @ 1,000 mls/hr 1X ONCE IV Last administered on 12/04/18at 18:20; Start 12/04/18 at 18:30; Stop 12/04/18 at 19:29; Status DC Neomycin/ Polymyxin/ Bacitracin (Triple Antibiotic Ointment) 1 pkt 1X ONCE TP Last administered on 12/04/18at 18:50; Start 12/04/18 at 19:00; Stop 12/04/18 at 19:01; Status DC Piperacillin Sod/ Tazobactam Sod 4.5 gm/Sodium Chloride 100 ml @ 200 mls/hr 1X ONCE IV Last administered on 12/04/18at 19:43; Start 12/04/18 at 19:00; Stop 12/04/18 at 19:29; Status DC Pantoprazole Sodium (PROTONIX VIAL for IV PUSH) 80 mg 1X ONCE IVP Last administered on 12/04/18at 20:04; Start 12/04/18 at 19:45; Stop 12/04/18 at 19:46; Status DC Pantoprazole Sodium 80 mg/ Sodium Chloride 100 ml @ 10 mls/hr 1X ONCE IV Last administered on 12/04/18at 19:46; Start 12/04/18 at 19:45; Stop 12/05/18 at 05:44 Magnesium Sulfate 50 ml @ 25 mls/hr 1X ONCE IV Last administered on 12/04/18at 20:04; Start 12/04/18 at 19:45; Stop 12/04/18 at 21:44; Status DC Potassium Chloride (Klor-Con) 40 meq 1X ONCE PO Last administered on 12/04/18at 19:43; Start 12/04/18 at 19:45; Stop 12/04/18 at 19:46; Status DC Ondansetron HCl (Zofran) 4 mg PRN Q8HRS PRN IV NAUSEA/VOMITING; Start 12/04/18 at 19:45; Stop 12/05/18 at 19:44 Active Scripts Active Ferrous Sulfate 325 Mg Tablet 1 Tab PO BID Lasix (Furosemide) 20 Mg Tablet 1 Tab PO DAILY Mupirocin Ointment (Mupirocin) 22 Gm Oint...g. 1 Sharri TP TID Doxycycline Hyclate 100 Mg Tablet 1 Tab PO BID Voltaren (Diclofenac Sodium) 100 Gm Gel..gram. 1 Gm TP QID Doxycycline Hyclate 100 Mg Capsule 1 Cap PO BID Aspir 81 (Aspirin) 81 Mg Tablet.dr 1 Tab PO DAILY Ferrous Sulfate 325 Mg Tablet 1 Tab PO BID Colace (Docusate Sodium) 100 Mg Capsule 100 Mg PO DAILY ROS: Review of Systems Review of System REVIEW OF SYSTEMS: GENERAL: Complains of weakness SKIN: No bruising, hair changes or rashes. EYES: No blurred, double or loss of vision. NOSE AND THROAT: No history of nosebleeds, hoarseness or sore throat. HEART: Complains of chest pain LUNGS: Complains of shortness of breath GASTROINTESTINAL: Denies changes in appetite, nausea, vomiting, diarrhea or constipation. GENITOURINARY: No history of frequency, urgency, hesitancy or nocturia. NEUROLOGIC: Denies history of numbness, tingling, tremor or weakness. PSYCHIATRIC: No history of panic, anxiety or depression. ENDOCRINE: No history of heat or cold intolerance, polyuria or polydipsia. EXTREMITIES: Denies muscle weakness, joint pain, pain on walking or stiffness. Physical Exam: Vital Signs: Vital Signs Date Time Temp Pulse Resp B/P (MAP) Pulse Ox O2 Delivery O2 Flow Rate FiO2 12/04/18 20:00 66 18 127/58 (81) 100 Room Air 12/04/18 17:18 98.0 98.0 Physcial Exam: GEN.: No apparent distress. alert but confused and wasn't HEENT: Head is normocephalic, atraumatic NECK: Supple, no JVD LUNGS: Clear to auscultation without rhonchi or wheezing HEART: RRR, S1, S2 present. Peripheral pulses intact ABDOMEN: Soft, nontender. Positive bowel sounds no organomegaly EXTREMITIES: Without any cyanosis, clubbing, or edema. Pedal pulses intact NEUROLOGIC: Normal speech, normal tone. A&O x 3 PSYCHIATRIC: Normal affect, normal mood. Stable SKIN: Skin is extremely pale VASCULAR: She only has 1 out of 10 capillary refill the nailbeds are extremely pale Labs: Labs: Laboratory Tests Test 12/04/18 17:50 12/04/18 18:05 12/04/18 18:45 12/04/18 18:47 Prothrombin Time 15.1 SEC (11.7-14.0) Prothromb Time International Ratio 1.2 (0.8-1.1) Activated Partial Thromboplast Time 27 SEC (24-38) White Blood Count 2.9 x10^3/uL (4.0-11.0) Red Blood Count 2.10 x10^6/uL (3.50-5.40) Hemoglobin 3.4 g/dL (12.0-15.5) Hematocrit 11.8 % (36.0-47.0) Mean Corpuscular Volume 56 fL (79-100) Mean Corpuscular Hemoglobin 16 pg (25-35) Mean Corpuscular Hemoglobin Concent 29 g/dL (31-37) Red Cell Distribution Width 20.8 % (11.5-14.5) Platelet Count 236 x10^3/uL (140-400) Neutrophils (%) (Auto) 45 % (31-73) Lymphocytes (%) (Auto) 25 % (24-48) Monocytes (%) (Auto) 24 % (0-9) Eosinophils (%) (Auto) 3 % (0-3) Basophils (%) (Auto) 2 % (0-3) Neutrophils # (Auto) 1.3 x10^3uL (1.8-7.7) Lymphocytes # (Auto) 0.7 x10^3/uL (1.0-4.8) Monocytes # (Auto) 0.7 x10^3/uL (0.0-1.1) Eosinophils # (Auto) 0.1 x10^3/uL (0.0-0.7) Basophils # (Auto) 0.1 x10^3/uL (0.0-0.2) Segmented Neutrophils % 61 % (35-66) Lymphocytes % 27 % (24-48) Monocytes % 10 % (0-10) Eosinophils % 1 % (0-5) Basophils % 1 % (0-3) Nucleated Red Blood Cells 1 Platelet Estimate Adequate (ADEQUATE) Polychromasia Slight Hypochromasia Marked Anisocytosis Mod Microcytosis Marked Ovalocytes Few Sodium Level 141 mmol/L (136-145) Potassium Level 2.9 mmol/L (3.5-5.1) Chloride Level 103 mmol/L (98-107) Carbon Dioxide Level 29 mmol/L (21-32) Anion Gap 9 (6-14) Blood Urea Nitrogen 11 mg/dL (7-20) Creatinine 0.9 mg/dL (0.6-1.0) Estimated GFR (Cockcroft-Gault) 59.1 BUN/Creatinine Ratio 12 (6-20) Glucose Level 104 mg/dL (70-99) Lactic Acid Level 1.1 mmol/L (0.4-2.0) Calcium Level 8.2 mg/dL (8.5-10.1) Magnesium Level 1.7 mg/dL (1.8-2.4) Total Bilirubin 0.8 mg/dL (0.2-1.0) Aspartate Amino Transf (AST/SGOT) 9 U/L (15-37) Alanine Aminotransferase (ALT/SGPT) 10 U/L (14-59) Alkaline Phosphatase 67 U/L (46-116) Creatine Kinase 8 U/L (26-192) Troponin I Quantitative 0.033 ng/mL (0.000-0.055) AE-Qua-S-Type Natriuretic Peptide 2619 pg/mL (0-449) Total Protein 5.6 g/dL (6.4-8.2) Albumin 2.9 g/dL (3.4-5.0) Albumin/Globulin Ratio 1.1 (1.0-1.7) Lipase 82 U/L (73-393) Stool Occult Blood Positive (NEG) Urine Collection Type Unknown Urine Color Yellow Urine Clarity Clear Urine pH 5.5 Urine Specific [place] 1.015 Urine Protein Negative mg/dL (NEG-TRACE) Urine Glucose (UA) Negative mg/dL (NEG) Urine Ketones (Stick) Negative mg/dL (NEG) Urine Blood Negative (NEG) Urine Nitrite Negative (NEG) Urine Bilirubin Negative (NEG) Urine Urobilinogen Dipstick 1.0 mg/dL (0.2 mg/dL) Urine Leukocyte Esterase Negative (NEG) Urine RBC 0 /HPF (0-2) Urine WBC 0 /HPF (0-4) Urine Squamous Epithelial Cells None /LPF Urine Amorphous Sediment Present /HPF Urine Bacteria 0 /HPF (0-FEW) Urine Mucus Mod /LPF Laboratory Tests Test 12/04/18 17:50 12/04/18 18:05 12/04/18 18:45 12/04/18 18:47 Prothrombin Time 15.1 SEC (11.7-14.0) Prothromb Time International Ratio 1.2 (0.8-1.1) Activated Partial Thromboplast Time 27 SEC (24-38) White Blood Count 2.9 x10^3/uL (4.0-11.0) Red Blood Count 2.10 x10^6/uL (3.50-5.40) Hemoglobin 3.4 g/dL (12.0-15.5) Hematocrit 11.8 % (36.0-47.0) Mean Corpuscular Volume 56 fL (79-100) Mean Corpuscular Hemoglobin 16 pg (25-35) Mean Corpuscular Hemoglobin Concent 29 g/dL (31-37) Red Cell Distribution Width 20.8 % (11.5-14.5) Platelet Count 236 x10^3/uL (140-400) Neutrophils (%) (Auto) 45 % (31-73) Lymphocytes (%) (Auto) 25 % (24-48) Monocytes (%) (Auto) 24 % (0-9) Eosinophils (%) (Auto) 3 % (0-3) Basophils (%) (Auto) 2 % (0-3) Neutrophils # (Auto) 1.3 x10^3uL (1.8-7.7) Lymphocytes # (Auto) 0.7 x10^3/uL (1.0-4.8) Monocytes # (Auto) 0.7 x10^3/uL (0.0-1.1) Eosinophils # (Auto) 0.1 x10^3/uL (0.0-0.7) Basophils # (Auto) 0.1 x10^3/uL (0.0-0.2) Segmented Neutrophils % 61 % (35-66) Lymphocytes % 27 % (24-48) Monocytes % 10 % (0-10) Eosinophils % 1 % (0-5) Basophils % 1 % (0-3) Nucleated Red Blood Cells 1 Platelet Estimate Adequate (ADEQUATE) Polychromasia Slight Hypochromasia Marked Anisocytosis Mod Microcytosis Marked Ovalocytes Few Sodium Level 141 mmol/L (136-145) Potassium Level 2.9 mmol/L (3.5-5.1) Chloride Level 103 mmol/L (98-107) Carbon Dioxide Level 29 mmol/L (21-32) Anion Gap 9 (6-14) Blood Urea Nitrogen 11 mg/dL (7-20) Creatinine 0.9 mg/dL (0.6-1.0) Estimated GFR (Cockcroft-Gault) 59.1 BUN/Creatinine Ratio 12 (6-20) Glucose Level 104 mg/dL (70-99) Lactic Acid Level 1.1 mmol/L (0.4-2.0) Calcium Level 8.2 mg/dL (8.5-10.1) Magnesium Level 1.7 mg/dL (1.8-2.4) Total Bilirubin 0.8 mg/dL (0.2-1.0) Aspartate Amino Transf (AST/SGOT) 9 U/L (15-37) Alanine Aminotransferase (ALT/SGPT) 10 U/L (14-59) Alkaline Phosphatase 67 U/L (46-116) Creatine Kinase 8 U/L (26-192) Troponin I Quantitative 0.033 ng/mL (0.000-0.055) QX-Pif-Y-Type Natriuretic Peptide 2619 pg/mL (0-449) Total Protein 5.6 g/dL (6.4-8.2) Albumin 2.9 g/dL (3.4-5.0) Albumin/Globulin Ratio 1.1 (1.0-1.7) Lipase 82 U/L (73-393) Stool Occult Blood Positive (NEG) Urine Collection Type Unknown Urine Color Yellow Urine Clarity Clear Urine pH 5.5 Urine Specific [place] 1.015 Urine Protein Negative mg/dL (NEG-TRACE) Urine Glucose (UA) Negative mg/dL (NEG) Urine Ketones (Stick) Negative mg/dL (NEG) Urine Blood Negative (NEG) Urine Nitrite Negative (NEG) Urine Bilirubin Negative (NEG) Urine Urobilinogen Dipstick 1.0 mg/dL (0.2 mg/dL) Urine Leukocyte Esterase Negative (NEG) Urine RBC 0 /HPF (0-2) Urine WBC 0 /HPF (0-4) Urine Squamous Epithelial Cells None /LPF Urine Amorphous Sediment Present /HPF Urine Bacteria 0 /HPF (0-FEW) Urine Mucus Mod /LPF Images: Images Chest x-ray shows pneumonia Assessment/Plan Assessment/Plan Severe anemia with associated cardiac symptoms of chest pain or shortness of breath palpitations In still finding of pneumonia Plan Cardiac monitoring Consult GI Transfuse 2 units of packed red blood cells Home meds Consult pulmonary Duo nebs O2 IV antibiotics DVT prophylaxis Full code Prognosis guarded This is a critically ill lady Total time 32 minutes LOLLY BOGGS III DO Dec 04, 2018 22:07
[2018-12-04 22:13] VITALS: BP 134/59
[2018-12-04 22:25] VITALS: BP 116/57
[2018-12-04 23:23] VITALS: BP_SYST 116; BP_SYST 120; BP_DIAS 56; BP_DIAS 57
[2018-12-04 23:25] VITALS: BP 120/56
[2018-12-05] VITALS (11 sets, daily range): BP systolic 98–177; BP diastolic 56–98
[2018-12-05] MEDS ORDERED: PANTOPRAZOLE SODIUM IV DRIP 80 MG in IV NORMAL SALINE 100ML 100 ML IV SCH (03:45)
[2018-12-05 08:01] LABS: BASO % 1 % (0-3); EOS # 0.2 x10^3/uL (0.0-0.7); EOS % 5 % (0-3); LYMPH # 0.7 x10^3/uL (1.0-4.8); LYMPH % 23 % (24-48); MEAN CORPUSCULAR HEMOGLOBIN 21 pg (25-35); MEAN CORPUSCULAR HGB CONC 32 g/dL (31-37); MEAN CORPUSCULAR VOLUME 66 fL (79-100); MONO # 0.6 x10^3/uL (0.0-1.1); MONO % 21 % (0-9); NEUT # 1.5 x10^3uL (1.8-7.7); NEUT % 49 % (31-73); PLATELET COUNT 218 x10^3/uL (140-400); RED BLOOD COUNT 2.88 x10^6/uL (3.50-5.40); RED CELL DISTRIBUTION WIDTH 29.1 % (11.5-14.5)
[2018-12-05 08:05] LABS: HEMATOCRIT 19.1 % (36.0-47.0)
[2018-12-05 08:06] LABS: CALCIUM 8.3 mg/dL (8.5-10.1); CREATININE 0.8 mg/dL (0.6-1.0); GFR 67.7; POTASSIUM 3.3 mmol/L (3.5-5.1)
--- NOTE | 2018-12-05 08:28 | EKG ---
[facility] [address] [place] [address] Test Date: 2018-12-04 Test Time: 17:27:44 Pat Name: JUAN SILVA Department: Room: Gender: F Cougar Hunter: : 1930 Requested By: DENA SERRANO Order Number: [id number] Reading MD: Measurements Intervals [place] Rate: 79 P: IA: QRS: 40 QRSD: 90 T: -134 QT: 366 QTc: 421 Interpretive Statements IRREGULAR RHYTHM, NO P-WAVE FOUND LOW LIMB LEAD VOLTAGE ST & T ABNORMALITY, CONSIDER ANTERIOR ISCHEMIA OR LEFT VENTRICULAR STRAIN LATERAL ISCHEMIA OR LEFT VENTRICULAR STRAIN INFEROLATERAL ISCHEMIA OR LEFT VENTRICULAR STRAIN ABNORMAL ECG RI6.01 No previous ECG available for comparison
--- NOTE | 2018-12-05 09:17 | PDOC2 ---
GI CONSULT Allergies: Coded Allergies: No Known Drug Allergies (Unverified , 12/14/17) A/P: A/P: Entered twice, please refer to GI consult from same date. PORTILLO BARNARD Dec 05, 2018 09:17
--- NOTE | 2018-12-05 10:20 | PDOC2 ---
GI CONSULT Reason For Consult: GI bleed, severe anemia HPI: HPI: 88 y/o female who we have seen in the past for CARIE. Brought to ER via EMS w/ chest pain, given ASA en route. Hgb was 3.4 (now 6 s/p transfusions), fecal occult positive, MCV 56, RDW 20.8, normal BUN (11 and now 9). Labs much the same in 08/2016 and then Hgb was 7.4 in 04/2018. EGD in 2014 w/ Dr. Aragon for anemia showed hiatal hernia. She declined colonoscopy at that time. Per our office records, previous colonoscopies showed diverticulosis and internal hemorrhoids. She also declines 'scopes when we saw her in 2016. 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 On CT in 2014, porcelain GB and sigmoid diverticulosis. B12, folate, and retic count normal in 2014. Hepatitis panel negative in 2017. She is not a good historian. Says chest pain has resolved and she's hungry. She denies hematemesis, hematochezia, melena, heartburn/reflux, dysphagia, abd pain, n/v, weight loss, diarrhea, and constipation. She says she takes iron once a day. She lives with her son Chivo. I asked if she would ever consider another endoscopy and she says "I feel exceptionally good. I'm very healthy considering I was born at home." PMH: PMH: per chart - A Fib, CAD, tricuspid regurg, pulm HTN, hypothyroidism, DVT, porcelain GB, hiatal hernia, diverticulosis, hemorrhoids, eye surgery FH: Family History: No pertinent hx Social History: Smoke: No ALCOHOL: none Drugs: None ROS: GEN: Denies fevers, chills, sweats HEENT: Denies blurred vision, sore throat CV: Denies chest pain RESP: Denies shortness of air, cough GI: Per HPI : Denies hematuria, dysuria ENDO: Denies weight changes NEURO: Denies confusion, dizziness MSK: Denies weakness, joint pain/swelling SKIN: Denies jaundice, pruritus Vitals: Vitals: Vital Signs Date Time Temp Pulse Resp B/P (MAP) Pulse Ox O2 Delivery O2 Flow Rate FiO2 12/05/18 07:00 98.0 62 18 134/62 (86) 98 Room Air 98.0 Labs: Labs: Laboratory Tests Test 12/04/18 17:50 12/04/18 18:05 12/04/18 18:45 12/04/18 18:47 Prothrombin Time 15.1 SEC (11.7-14.0) Prothromb Time International Ratio 1.2 (0.8-1.1) Activated Partial Thromboplast Time 27 SEC (24-38) White Blood Count 2.9 x10^3/uL (4.0-11.0) Red Blood Count 2.10 x10^6/uL (3.50-5.40) Hemoglobin 3.4 g/dL (12.0-15.5) Hematocrit 11.8 % (36.0-47.0) Mean Corpuscular Volume 56 fL (79-100) Mean Corpuscular Hemoglobin 16 pg (25-35) Mean Corpuscular Hemoglobin Concent 29 g/dL (31-37) Red Cell Distribution Width 20.8 % (11.5-14.5) Platelet Count 236 x10^3/uL (140-400) Neutrophils (%) (Auto) 45 % (31-73) Lymphocytes (%) (Auto) 25 % (24-48) Monocytes (%) (Auto) 24 % (0-9) Eosinophils (%) (Auto) 3 % (0-3) Basophils (%) (Auto) 2 % (0-3) Neutrophils # (Auto) 1.3 x10^3uL (1.8-7.7) Lymphocytes # (Auto) 0.7 x10^3/uL (1.0-4.8) Monocytes # (Auto) 0.7 x10^3/uL (0.0-1.1) Eosinophils # (Auto) 0.1 x10^3/uL (0.0-0.7) Basophils # (Auto) 0.1 x10^3/uL (0.0-0.2) Segmented Neutrophils % 61 % (35-66) Lymphocytes % 27 % (24-48) Monocytes % 10 % (0-10) Eosinophils % 1 % (0-5) Basophils % 1 % (0-3) Nucleated Red Blood Cells 1 Platelet Estimate Adequate (ADEQUATE) Polychromasia Slight Hypochromasia Marked Anisocytosis Mod Microcytosis Marked Ovalocytes Few Sodium Level 141 mmol/L (136-145) Potassium Level 2.9 mmol/L (3.5-5.1) Chloride Level 103 mmol/L (98-107) Carbon Dioxide Level 29 mmol/L (21-32) Anion Gap 9 (6-14) Blood Urea Nitrogen 11 mg/dL (7-20) Creatinine 0.9 mg/dL (0.6-1.0) Estimated GFR (Cockcroft-Gault) 59.1 BUN/Creatinine Ratio 12 (6-20) Glucose Level 104 mg/dL (70-99) Lactic Acid Level 1.1 mmol/L (0.4-2.0) Calcium Level 8.2 mg/dL (8.5-10.1) Magnesium Level 1.7 mg/dL (1.8-2.4) Total Bilirubin 0.8 mg/dL (0.2-1.0) Aspartate Amino Transf (AST/SGOT) 9 U/L (15-37) Alanine Aminotransferase (ALT/SGPT) 10 U/L (14-59) Alkaline Phosphatase 67 U/L (46-116) Creatine Kinase 8 U/L (26-192) Troponin I Quantitative 0.033 ng/mL (0.000-0.055) QR-[id number]-Type Natriuretic Peptide 2619 pg/mL (0-449) Total Protein 5.6 g/dL (6.4-8.2) Albumin 2.9 g/dL (3.4-5.0) Albumin/Globulin Ratio 1.1 (1.0-1.7) Lipase 82 U/L (73-393) Stool Occult Blood Positive (NEG) Urine Collection Type Unknown Urine Color Yellow Urine Clarity Clear Urine pH 5.5 Urine Specific [place] 1.015 Urine Protein Negative mg/dL (NEG-TRACE) Urine Glucose (UA) Negative mg/dL (NEG) Urine Ketones (Stick) Negative mg/dL (NEG) Urine Blood Negative (NEG) Urine Nitrite Negative (NEG) Urine Bilirubin Negative (NEG) Urine Urobilinogen Dipstick 1.0 mg/dL (0.2 mg/dL) Urine Leukocyte Esterase Negative (NEG) Urine RBC 0 /HPF (0-2) Urine WBC 0 /HPF (0-4) Urine Squamous Epithelial Cells None /LPF Urine Amorphous Sediment Present /HPF Urine Bacteria 0 /HPF (0-FEW) Urine Mucus Mod /LPF Test 6/16/19 23:15 12/05/18 03:15 12/05/18 07:10 Troponin I Quantitative 0.040 ng/mL (0.000-0.055) 0.039 ng/mL (0.000-0.055) White Blood Count 3.0 x10^3/uL (4.0-11.0) Red Blood Count 2.88 x10^6/uL (3.50-5.70) Hemoglobin 6.0 g/dL (12.0-15.5) Hematocrit 19.1 % (36.0-47.0) Mean Corpuscular Volume 66 fL (79-100) Mean Corpuscular Hemoglobin 21 pg (25-35) Mean Corpuscular Hemoglobin Concent 32 g/dL (31-37) Red Cell Distribution Width 29.1 % (11.5-14.5) Platelet Count 218 x10^3/uL (140-400) Neutrophils (%) (Auto) 49 % (31-73) Lymphocytes (%) (Auto) 23 % (24-48) Monocytes (%) (Auto) 21 % (0-9) Eosinophils (%) (Auto) 5 % (0-3) Basophils (%) (Auto) 1 % (0-3) Neutrophils # (Auto) 1.5 x10^3uL (1.8-7.7) Lymphocytes # (Auto) 0.7 x10^3/uL (1.0-4.8) Monocytes # (Auto) 0.6 x10^3/uL (0.0-1.1) Eosinophils # (Auto) 0.2 x10^3/uL (0.0-0.7) Basophils # (Auto) 0.0 x10^3/uL (0.0-0.2) Absolute Reticulocyte Count 0.055 x10^6/uL (0.020-0.120) Percent Reticulocyte Count 1.9 % (0.5-2.3) Immature Reticulocyte Fraction 0.50 (0.20-0.60) Sodium Level 138 mmol/L (136-145) Potassium Level 3.3 mmol/L (3.5-5.1) Chloride Level 102 mmol/L (98-107) Carbon Dioxide Level 28 mmol/L (21-32) Anion Gap 8 (6-14) Blood Urea Nitrogen 9 mg/dL (7-20) Creatinine 0.8 mg/dL (0.6-1.0) Estimated GFR (Cockcroft-Gault) 67.7 Glucose Level 103 mg/dL (70-99) Calcium Level 8.3 mg/dL (8.5-10.1) Allergies: Coded Allergies: No Known Drug Allergies (Unverified , 12/14/17) Medications: Current Medications Medications (Trade) Dose Ordered Sig/Tu Route PRN Reason Start Time Stop Time Status Last Admin Dose Admin Sodium Chloride 1,000 ml @ 1,000 mls/hr 1X ONCE IV 12/04/18 18:30 12/04/18 19:29 DC 12/04/18 18:20 Neomycin/ Polymyxin/ Bacitracin (Triple Antibiotic Ointment) 1 pkt 1X ONCE TP 12/04/18 19:00 12/04/18 19:01 DC 12/04/18 18:50 Piperacillin Sod/ Tazobactam Sod 4.5 gm/Sodium Chloride 100 ml @ 200 mls/hr 1X ONCE IV 12/04/18 19:00 12/04/18 19:29 DC 12/04/18 19:43 Pantoprazole Sodium (PROTONIX VIAL for IV PUSH) 80 mg 1X ONCE IVP 12/04/18 19:45 12/04/18 19:46 DC 12/04/18 20:04 Pantoprazole Sodium 80 mg/ Sodium Chloride 100 ml @ 10 mls/hr 1X ONCE IV 12/04/18 19:45 12/05/18 05:44 DC 12/04/18 19:46 Magnesium Sulfate 50 ml @ 25 mls/hr 1X ONCE IV 12/04/18 19:45 12/04/18 21:44 DC 12/04/18 20:04 Potassium Chloride (Klor-Con) 40 meq 1X ONCE PO 12/04/18 19:45 12/04/18 19:46 DC 12/04/18 19:43 Pantoprazole Sodium 80 mg/ Sodium Chloride 100 ml @ 10 mls/hr Q10H IV 12/05/18 03:45 12/05/18 03:49 Imaging: Imaging: CXR IMPRESSION: Left basilar consolidation, atelectasis versus pneumonia. Developing mass cannot be excluded. Follow-up imaging after treatment to ensure resolution. 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 Gonzalez - check anemia parameters, transfuse another unit pRBCs - d/w RN. Agree w/ PPI - can change to PO and try clear liquids. ?really taking iron - will add this as well Does not seem to be interested in 'scopes, not sure she fully understands anemia, etc. ?podiatry consult PORTILLO BARNARD Dec 05, 2018 10:20
[2018-12-05 10:51] LABS: FREE T4 0.86 ng/dL (0.76-1.46); THYROID STIM HORMONE (TSH) 4.151 uIU/mL (0.358-3.74)
--- NOTE | 2018-12-05 12:08 | NUR ---
SS following for discharge planning. SS reviewed pt chart. Pt is from home and is currently on room air. No discharge needs noted at this time. SS will continue to follow for discharge planning.
[2018-12-05] MEDS: FERROUS SULFATE 325 MG TABLET. PO SCH ×2 (12:34→21:17)
[2018-12-05] MEDS ORDERED: ACETAMINOPHEN 500 MG TABLET PO PRN (13:30)
[2018-12-05] MEDS ORDERED: ONDANSETRON PF 4 MG/2 ML VIAL. IV PRN (13:30)
[2018-12-05] MEDS ORDERED: ACETAMINOPHEN/CODEINE 300/30MG TABLET. PO PRN (13:30)
--- NOTE | 2018-12-05 13:58 | PDOC ---
PROGRESS NOTES Chief Complaint Chief Complaint Acute precipitous drop in hemoglobin Encephalopathy? Could be her baseline Long toenails Microcytic anemia Hypokalemia Rash back-bedbugs? History of Present Illness History of Present Illness Hemoglobin 6 and getting blood transfusion MCV 64 Iron panel ordered by GI Not interested in scopes Potassium much better but can improve No fecal occult test yet She mentions about concerns about bedbugs in her back, itching and that it will grow Some encephalopathy, lives at home alone ? with son/grandson Plan: check Hemoccult Transfuse H&H tomorrow Replace potassium when necessary Consult podiatry-long toenails Benadryl for back itch prn unsure If this is scabies-ivermectin by mouth �1 Vitals Vitals Vital Signs Date Time Temp Pulse Resp B/P (MAP) Pulse Ox O2 Delivery O2 Flow Rate FiO2 12/05/18 10:57 97.8 69 18 135/64 (87) 96 Room Air 97.8 Physical Exam General: Alert, Cooperative, No acute distress Heart: Regular rate, Normal S1, Normal S2 Lungs: Clear, Other Abdomen: Soft, No tenderness Extremities: No clubbing, No cyanosis, No edema Skin: No rashes, No breakdown, Other (bug bites, back, some scaling) Labs LABS Laboratory Tests Test 12/04/18 17:50 12/04/18 18:05 12/04/18 18:45 12/04/18 18:47 Prothrombin Time 15.1 SEC (11.7-14.0) Prothromb Time International Ratio 1.2 (0.8-1.1) Activated Partial Thromboplast Time 27 SEC (24-38) White Blood Count 2.9 x10^3/uL (4.0-11.0) Red Blood Count 2.10 x10^6/uL (3.50-5.40) Hemoglobin 3.4 g/dL (12.0-15.5) Hematocrit 11.8 % (36.0-47.0) Mean Corpuscular Volume 56 fL (79-100) Mean Corpuscular Hemoglobin 16 pg (25-35) Mean Corpuscular Hemoglobin Concent 29 g/dL (31-37) Red Cell Distribution Width 20.8 % (11.5-14.5) Platelet Count 236 x10^3/uL (140-400) Neutrophils (%) (Auto) 45 % (31-73) Lymphocytes (%) (Auto) 25 % (24-48) Monocytes (%) (Auto) 24 % (0-9) Eosinophils (%) (Auto) 3 % (0-3) Basophils (%) (Auto) 2 % (0-3) Neutrophils # (Auto) 1.3 x10^3uL (1.8-7.7) Lymphocytes # (Auto) 0.7 x10^3/uL (1.0-4.8) Monocytes # (Auto) 0.7 x10^3/uL (0.0-1.1) Eosinophils # (Auto) 0.1 x10^3/uL (0.0-0.7) Basophils # (Auto) 0.1 x10^3/uL (0.0-0.2) Segmented Neutrophils % 61 % (35-66) Lymphocytes % 27 % (24-48) Monocytes % 10 % (0-10) Eosinophils % 1 % (0-5) Basophils % 1 % (0-3) Nucleated Red Blood Cells 1 Platelet Estimate Adequate (ADEQUATE) Polychromasia Slight Hypochromasia Marked Anisocytosis Mod Microcytosis Marked Ovalocytes Few Sodium Level 141 mmol/L (136-145) Potassium Level 2.9 mmol/L (3.5-5.1) Chloride Level 103 mmol/L (98-107) Carbon Dioxide Level 29 mmol/L (21-32) Anion Gap 9 (6-14) Blood Urea Nitrogen 11 mg/dL (7-20) Creatinine 0.9 mg/dL (0.6-1.0) Estimated GFR (Cockcroft-Gault) 59.1 BUN/Creatinine Ratio 12 (6-20) Glucose Level 104 mg/dL (70-99) Lactic Acid Level 1.1 mmol/L (0.4-2.0) Calcium Level 8.2 mg/dL (8.5-10.1) Magnesium Level 1.7 mg/dL (1.8-2.4) Total Bilirubin 0.8 mg/dL (0.2-1.0) Aspartate Amino Transf (AST/SGOT) 9 U/L (15-37) Alanine Aminotransferase (ALT/SGPT) 10 U/L (14-59) Alkaline Phosphatase 67 U/L (46-116) Creatine Kinase 8 U/L (26-192) Troponin I Quantitative 0.033 ng/mL (0.000-0.055) HE-Wwl-B-Type Natriuretic Peptide 2619 pg/mL (0-449) Total Protein 5.6 g/dL (6.4-8.2) Albumin 2.9 g/dL (3.4-5.0) Albumin/Globulin Ratio 1.1 (1.0-1.7) Lipase 82 U/L (73-393) Stool Occult Blood Positive (NEG) Urine Collection Type Unknown Urine Color Yellow Urine Clarity Clear Urine pH 5.5 Urine Specific [place] 1.015 Urine Protein Negative mg/dL (NEG-TRACE) Urine Glucose (UA) Negative mg/dL (NEG) Urine Ketones (Stick) Negative mg/dL (NEG) Urine Blood Negative (NEG) Urine Nitrite Negative (NEG) Urine Bilirubin Negative (NEG) Urine Urobilinogen Dipstick 1.0 mg/dL (0.2 mg/dL) Urine Leukocyte Esterase Negative (NEG) Urine RBC 0 /HPF (0-2) Urine WBC 0 /HPF (0-4) Urine Squamous Epithelial Cells None /LPF Urine Amorphous Sediment Present /HPF Urine Bacteria 0 /HPF (0-FEW) Urine Mucus Mod /LPF Test 12/04/18 23:15 12/05/18 03:15 12/05/18 07:10 Troponin I Quantitative 0.040 ng/mL (0.000-0.055) 0.039 ng/mL (0.000-0.055) White Blood Count 3.0 x10^3/uL (4.0-11.0) Red Blood Count 2.88 x10^6/uL (3.50-5.70) Hemoglobin 6.0 g/dL (12.0-15.5) Hematocrit 19.1 % (36.0-47.0) Mean Corpuscular Volume 66 fL (79-100) Mean Corpuscular Hemoglobin 21 pg (25-35) Mean Corpuscular Hemoglobin Concent 32 g/dL (31-37) Red Cell Distribution Width 29.1 % (11.5-14.5) Platelet Count 218 x10^3/uL (140-400) Neutrophils (%) (Auto) 49 % (31-73) Lymphocytes (%) (Auto) 23 % (24-48) Monocytes (%) (Auto) 21 % (0-9) Eosinophils (%) (Auto) 5 % (0-3) Basophils (%) (Auto) 1 % (0-3) Neutrophils # (Auto) 1.5 x10^3uL (1.8-7.7) Lymphocytes # (Auto) 0.7 x10^3/uL (1.0-4.8) Monocytes # (Auto) 0.6 x10^3/uL (0.0-1.1) Eosinophils # (Auto) 0.2 x10^3/uL (0.0-0.7) Basophils # (Auto) 0.0 x10^3/uL (0.0-0.2) Absolute Reticulocyte Count 0.055 x10^6/uL (0.020-0.120) Percent Reticulocyte Count 1.9 % (0.5-2.3) Immature Reticulocyte Fraction 0.50 (0.20-0.60) Sodium Level 138 mmol/L (136-145) Potassium Level 3.3 mmol/L (3.5-5.1) Chloride Level 102 mmol/L (98-107) Carbon Dioxide Level 28 mmol/L (21-32) Anion Gap 8 (6-14) Blood Urea Nitrogen 9 mg/dL (7-20) Creatinine 0.8 mg/dL (0.6-1.0) Estimated GFR (Cockcroft-Gault) 67.7 Glucose Level 103 mg/dL (70-99) Calcium Level 8.3 mg/dL (8.5-10.1) Iron Level 32 ug/dL (50-170) Total Iron Binding Capacity 366 ug/dL (250-450) Iron Saturation 9 % (15-34) Vitamin B12 Level 339 pg/mL (247-911) Thyroid Stimulating Hormone (TSH) 4.151 uIU/mL (0.358-3.74) Free Thyroxine 0.86 ng/dL (0.76-1.46) Free Triiodothyronine (T3) pg/mL 1.45 pg/mL (2.18-3.98) Review of Systems Review of Systems Itchy back, otherwise rest of ROS 14 point negative Assessment and Plan Assessmemt and Plan Problems Medical Problems: (1) Chest pain Status: Acute (2) Hypokalemia Status: Acute (3) Hypomagnesemia Status: Acute (4) Pneumonia Status: Acute (5) Severe anemia Status: Acute Comment Review of Relevant I have reviewed the following items lavern (where applicable) has been applied. Labs Laboratory Tests Test 12/04/18 17:50 12/04/18 18:05 12/04/18 18:45 12/04/18 18:47 Prothrombin Time 15.1 SEC (11.7-14.0) Prothromb Time International Ratio 1.2 (0.8-1.1) Activated Partial Thromboplast Time 27 SEC (24-38) White Blood Count 2.9 x10^3/uL (4.0-11.0) Red Blood Count 2.10 x10^6/uL (3.50-5.40) Hemoglobin 3.4 g/dL (12.0-15.5) Hematocrit 11.8 % (36.0-47.0) Mean Corpuscular Volume 56 fL (79-100) Mean Corpuscular Hemoglobin 16 pg (25-35) Mean Corpuscular Hemoglobin Concent 29 g/dL (31-37) Red Cell Distribution Width 20.8 % (11.5-14.5) Platelet Count 236 x10^3/uL (140-400) Neutrophils (%) (Auto) 45 % (31-73) Lymphocytes (%) (Auto) 25 % (24-48) Monocytes (%) (Auto) 24 % (0-9) Eosinophils (%) (Auto) 3 % (0-3) Basophils (%) (Auto) 2 % (0-3) Neutrophils # (Auto) 1.3 x10^3uL (1.8-7.7) Lymphocytes # (Auto) 0.7 x10^3/uL (1.0-4.8) Monocytes # (Auto) 0.7 x10^3/uL (0.0-1.1) Eosinophils # (Auto) 0.1 x10^3/uL (0.0-0.7) Basophils # (Auto) 0.1 x10^3/uL (0.0-0.2) Segmented Neutrophils % 61 % (35-66) Lymphocytes % 27 % (24-48) Monocytes % 10 % (0-10) Eosinophils % 1 % (0-5) Basophils % 1 % (0-3) Nucleated Red Blood Cells 1 Platelet Estimate Adequate (ADEQUATE) Polychromasia Slight Hypochromasia Marked Anisocytosis Mod Microcytosis Marked Ovalocytes Few Sodium Level 141 mmol/L (136-145) Potassium Level 2.9 mmol/L (3.5-5.1) Chloride Level 103 mmol/L (98-107) Carbon Dioxide Level 29 mmol/L (21-32) Anion Gap 9 (6-14) Blood Urea Nitrogen 11 mg/dL (7-20) Creatinine 0.9 mg/dL (0.6-1.0) Estimated GFR (Cockcroft-Gault) 59.1 BUN/Creatinine Ratio 12 (6-20) Glucose Level 104 mg/dL (70-99) Lactic Acid Level 1.1 mmol/L (0.4-2.0) Calcium Level 8.2 mg/dL (8.5-10.1) Magnesium Level 1.7 mg/dL (1.8-2.4) Total Bilirubin 0.8 mg/dL (0.2-1.0) Aspartate Amino Transf (AST/SGOT) 9 U/L (15-37) Alanine Aminotransferase (ALT/SGPT) 10 U/L (14-59) Alkaline Phosphatase 67 U/L (46-116) Creatine Kinase 8 U/L (26-192) Troponin I Quantitative 0.033 ng/mL (0.000-0.055) AY-Dfd-P-Type Natriuretic Peptide 2619 pg/mL (0-449) Total Protein 5.6 g/dL (6.4-8.2) Albumin 2.9 g/dL (3.4-5.0) Albumin/Globulin Ratio 1.1 (1.0-1.7) Lipase 82 U/L (73-393) Stool Occult Blood Positive (NEG) Urine Collection Type Unknown Urine Color Yellow Urine Clarity Clear Urine pH 5.5 Urine Specific [place] 1.015 Urine Protein Negative mg/dL (NEG-TRACE) Urine Glucose (UA) Negative mg/dL (NEG) Urine Ketones (Stick) Negative mg/dL (NEG) Urine Blood Negative (NEG) Urine Nitrite Negative (NEG) Urine Bilirubin Negative (NEG) Urine Urobilinogen Dipstick 1.0 mg/dL (0.2 mg/dL) Urine Leukocyte Esterase Negative (NEG) Urine RBC 0 /HPF (0-2) Urine WBC 0 /HPF (0-4) Urine Squamous Epithelial Cells None /LPF Urine Amorphous Sediment Present /HPF Urine Bacteria 0 /HPF (0-FEW) Urine Mucus Mod /LPF Test 12/04/18 23:15 12/05/18 03:15 12/05/18 07:10 Troponin I Quantitative 0.040 ng/mL (0.000-0.055) 0.039 ng/mL (0.000-0.055) White Blood Count 3.0 x10^3/uL (4.0-11.0) Red Blood Count 2.88 x10^6/uL (3.50-5.70) Hemoglobin 6.0 g/dL (12.0-15.5) Hematocrit 19.1 % (36.0-47.0) Mean Corpuscular Volume 66 fL (79-100) Mean Corpuscular Hemoglobin 21 pg (25-35) Mean Corpuscular Hemoglobin Concent 32 g/dL (31-37) Red Cell Distribution Width 29.1 % (11.5-14.5) Platelet Count 218 x10^3/uL (140-400) Neutrophils (%) (Auto) 49 % (31-73) Lymphocytes (%) (Auto) 23 % (24-48) Monocytes (%) (Auto) 21 % (0-9) Eosinophils (%) (Auto) 5 % (0-3) Basophils (%) (Auto) 1 % (0-3) Neutrophils # (Auto) 1.5 x10^3uL (1.8-7.7) Lymphocytes # (Auto) 0.7 x10^3/uL (1.0-4.8) Monocytes # (Auto) 0.6 x10^3/uL (0.0-1.1) Eosinophils # (Auto) 0.2 x10^3/uL (0.0-0.7) Basophils # (Auto) 0.0 x10^3/uL (0.0-0.2) Absolute Reticulocyte Count 0.055 x10^6/uL (0.020-0.120) Percent Reticulocyte Count 1.9 % (0.5-2.3) Immature Reticulocyte Fraction 0.50 (0.20-0.60) Sodium Level 138 mmol/L (136-145) Potassium Level 3.3 mmol/L (3.5-5.1) Chloride Level 102 mmol/L (98-107) Carbon Dioxide Level 28 mmol/L (21-32) Anion Gap 8 (6-14) Blood Urea Nitrogen 9 mg/dL (7-20) Creatinine 0.8 mg/dL (0.6-1.0) Estimated GFR (Cockcroft-Gault) 67.7 Glucose Level 103 mg/dL (70-99) Calcium Level 8.3 mg/dL (8.5-10.1) Iron Level 32 ug/dL (50-170) Total Iron Binding Capacity 366 ug/dL (250-450) Iron Saturation 9 % (15-34) Vitamin B12 Level 339 pg/mL (247-911) Thyroid Stimulating Hormone (TSH) 4.151 uIU/mL (0.358-3.74) Free Thyroxine 0.86 ng/dL (0.76-1.46) Free Triiodothyronine (T3) pg/mL 1.45 pg/mL (2.18-3.98) Laboratory Tests Test 12/04/18 17:50 12/04/18 18:05 12/04/18 18:45 12/04/18 18:47 Prothrombin Time 15.1 SEC (11.7-14.0) Prothromb Time International Ratio 1.2 (0.8-1.1) Activated Partial Thromboplast Time 27 SEC (24-38) White Blood Count 2.9 x10^3/uL (4.0-11.0) Red Blood Count 2.10 x10^6/uL (3.50-5.40) Hemoglobin 3.4 g/dL (12.0-15.5) Hematocrit 11.8 % (36.0-47.0) Mean Corpuscular Volume 56 fL (79-100) Mean Corpuscular Hemoglobin 16 pg (25-35) Mean Corpuscular Hemoglobin Concent 29 g/dL (31-37) Red Cell Distribution Width 20.8 % (11.5-14.5) Platelet Count 236 x10^3/uL (140-400) Neutrophils (%) (Auto) 45 % (31-73) Lymphocytes (%) (Auto) 25 % (24-48) Monocytes (%) (Auto) 24 % (0-9) Eosinophils (%) (Auto) 3 % (0-3) Basophils (%) (Auto) 2 % (0-3) Neutrophils # (Auto) 1.3 x10^3uL (1.8-7.7) Lymphocytes # (Auto) 0.7 x10^3/uL (1.0-4.8) Monocytes # (Auto) 0.7 x10^3/uL (0.0-1.1) Eosinophils # (Auto) 0.1 x10^3/uL (0.0-0.7) Basophils # (Auto) 0.1 x10^3/uL (0.0-0.2) Segmented Neutrophils % 61 % (35-66) Lymphocytes % 27 % (24-48) Monocytes % 10 % (0-10) Eosinophils % 1 % (0-5) Basophils % 1 % (0-3) Nucleated Red Blood Cells 1 Platelet Estimate Adequate (ADEQUATE) Polychromasia Slight Hypochromasia Marked Anisocytosis Mod Microcytosis Marked Ovalocytes Few Sodium Level 141 mmol/L (136-145) Potassium Level 2.9 mmol/L (3.5-5.1) Chloride Level 103 mmol/L (98-107) Carbon Dioxide Level 29 mmol/L (21-32) Anion Gap 9 (6-14) Blood Urea Nitrogen 11 mg/dL (7-20) Creatinine 0.9 mg/dL (0.6-1.0) Estimated GFR (Cockcroft-Gault) 59.1 BUN/Creatinine Ratio 12 (6-20) Glucose Level 104 mg/dL (70-99) Lactic Acid Level 1.1 mmol/L (0.4-2.0) Calcium Level 8.2 mg/dL (8.5-10.1) Magnesium Level 1.7 mg/dL (1.8-2.4) Total Bilirubin 0.8 mg/dL (0.2-1.0) Aspartate Amino Transf (AST/SGOT) 9 U/L (15-37) Alanine Aminotransferase (ALT/SGPT) 10 U/L (14-59) Alkaline Phosphatase 67 U/L (46-116) Creatine Kinase 8 U/L (26-192) Troponin I Quantitative 0.033 ng/mL (0.000-0.055) RY-Ibu-O-Type Natriuretic Peptide 2619 pg/mL (0-449) Total Protein 5.6 g/dL (6.4-8.2) Albumin 2.9 g/dL (3.4-5.0) Albumin/Globulin Ratio 1.1 (1.0-1.7) Lipase 82 U/L (73-393) Stool Occult Blood Positive (NEG) Urine Collection Type Unknown Urine Color Yellow Urine Clarity Clear Urine pH 5.5 Urine Specific [place] 1.015 Urine Protein Negative mg/dL (NEG-TRACE) Urine Glucose (UA) Negative mg/dL (NEG) Urine Ketones (Stick) Negative mg/dL (NEG) Urine Blood Negative (NEG) Urine Nitrite Negative (NEG) Urine Bilirubin Negative (NEG) Urine Urobilinogen Dipstick 1.0 mg/dL (0.2 mg/dL) Urine Leukocyte Esterase Negative (NEG) Urine RBC 0 /HPF (0-2) Urine WBC 0 /HPF (0-4) Urine Squamous Epithelial Cells None /LPF Urine Amorphous Sediment Present /HPF Urine Bacteria 0 /HPF (0-FEW) Urine Mucus Mod /LPF Test 12/04/18 23:15 12/05/18 03:15 12/05/18 07:10 Troponin I Quantitative 0.040 ng/mL (0.000-0.055) 0.039 ng/mL (0.000-0.055) White Blood Count 3.0 x10^3/uL (4.0-11.0) Red Blood Count 2.88 x10^6/uL (3.50-5.70) Hemoglobin 6.0 g/dL (12.0-15.5) Hematocrit 19.1 % (36.0-47.0) Mean Corpuscular Volume 66 fL (79-100) Mean Corpuscular Hemoglobin 21 pg (25-35) Mean Corpuscular Hemoglobin Concent 32 g/dL (31-37) Red Cell Distribution Width 29.1 % (11.5-14.5) Platelet Count 218 x10^3/uL (140-400) Neutrophils (%) (Auto) 49 % (31-73) Lymphocytes (%) (Auto) 23 % (24-48) Monocytes (%) (Auto) 21 % (0-9) Eosinophils (%) (Auto) 5 % (0-3) Basophils (%) (Auto) 1 % (0-3) Neutrophils # (Auto) 1.5 x10^3uL (1.8-7.7) Lymphocytes # (Auto) 0.7 x10^3/uL (1.0-4.8) Monocytes # (Auto) 0.6 x10^3/uL (0.0-1.1) Eosinophils # (Auto) 0.2 x10^3/uL (0.0-0.7) Basophils # (Auto) 0.0 x10^3/uL (0.0-0.2) Absolute Reticulocyte Count 0.055 x10^6/uL (0.020-0.120) Percent Reticulocyte Count 1.9 % (0.5-2.3) Immature Reticulocyte Fraction 0.50 (0.20-0.60) Sodium Level 138 mmol/L (136-145) Potassium Level 3.3 mmol/L (3.5-5.1) Chloride Level 102 mmol/L (98-107) Carbon Dioxide Level 28 mmol/L (21-32) Anion Gap 8 (6-14) Blood Urea Nitrogen 9 mg/dL (7-20) Creatinine 0.8 mg/dL (0.6-1.0) Estimated GFR (Cockcroft-Gault) 67.7 Glucose Level 103 mg/dL (70-99) Calcium Level 8.3 mg/dL (8.5-10.1) Iron Level 32 ug/dL (50-170) Total Iron Binding Capacity 366 ug/dL (250-450) Iron Saturation 9 % (15-34) Vitamin B12 Level 339 pg/mL (247-911) Thyroid Stimulating Hormone (TSH) 4.151 uIU/mL (0.358-3.74) Free Thyroxine 0.86 ng/dL (0.76-1.46) Free Triiodothyronine (T3) pg/mL 1.45 pg/mL (2.18-3.98) Medications Current Medications Sodium Chloride 1,000 ml @ 1,000 mls/hr 1X ONCE IV Last administered on 12/04/18at 18:20; Start 12/04/18 at 18:30; Stop 12/04/18 at 19:29; Status DC Neomycin/ Polymyxin/ Bacitracin (Triple Antibiotic Ointment) 1 pkt 1X ONCE TP Last administered on 12/04/18at 18:50; Start 12/04/18 at 19:00; Stop 12/04/18 at 19:01; Status DC Piperacillin Sod/ Tazobactam Sod 4.5 gm/Sodium Chloride 100 ml @ 200 mls/hr 1X ONCE IV Last administered on 12/04/18at 19:43; Start 12/04/18 at 19:00; Stop 12/04/18 at 19:29; Status DC Pantoprazole Sodium (PROTONIX VIAL for IV PUSH) 80 mg 1X ONCE IVP Last administered on 12/04/18at 20:04; Start 12/04/18 at 19:45; Stop 12/04/18 at 19:46; Status DC Pantoprazole Sodium 80 mg/ Sodium Chloride 100 ml @ 10 mls/hr 1X ONCE IV Last administered on 12/04/18at 19:46; Start 12/04/18 at 19:45; Stop 12/05/18 at 05:44; Status DC Magnesium Sulfate 50 ml @ 25 mls/hr 1X ONCE IV Last administered on 12/04/18at 20:04; Start 12/04/18 at 19:45; Stop 12/04/18 at 21:44; Status DC Potassium Chloride (Klor-Con) 40 meq 1X ONCE PO Last administered on 12/04/18at 19:43; Start 12/04/18 at 19:45; Stop 12/04/18 at 19:46; Status DC Ondansetron HCl (Zofran) 4 mg PRN Q8HRS PRN IV NAUSEA/VOMITING; Start 12/04/18 at 19:45; Stop 12/05/18 at 13:17; Status DC Pantoprazole Sodium 80 mg/ Sodium Chloride 100 ml @ 10 mls/hr Q10H IV Last administered on 12/05/18at 03:49; Start 12/05/18 at 03:45; Stop 12/05/18 at 10:23; Status DC Pantoprazole Sodium (Protonix) 40 mg DAILYAC PO ; Start 12/06/18 at 11:00 Ferrous Sulfate (Feosol) 325 mg BID PO Last administered on 12/05/18at 12:34; Start 12/05/18 at 11:00 Ondansetron HCl (Zofran) 4 mg PRN Q6HRS PRN IV NAUSEA/VOMITING; Start 12/05/18 at 13:30 Ferrous Sulfate (Feosol) 325 mg BID PO ; Start 12/05/18 at 21:00; Stop 12/05/18 at 21:00; Status DC Acetaminophen (Tylenol) 500 mg PRN Q6HRS PRN PO HEADACHE / TEMP; Start 12/05/18 at 13:30 Acetaminophen/ Codeine Phosphate (Tylenol #3) 1 tab PRN Q6HRS PRN PO PAIN; Start 12/05/18 at 13:30 Active Scripts Active Ferrous Sulfate 325 Mg Tablet 1 Tab PO BID Vitals/I & O Vital Sign - Last 24 Hours 12/04/18 12/04/18 12/04/18 12/04/18 17:18 18:17 19:00 19:30 Temp 98.0 98.0 Pulse 90 73 61 66 Resp 18 18 18 20 B/P (MAP) 115/54 (74) 116/55 (75) 121/57 (78) 127/60 (82) Pulse Ox 99 99 99 100 O2 Delivery Room Air Room Air Room Air Room Air 12/04/18 12/04/18 12/04/18 12/04/18 20:00 21:30 22:13 23:23 Temp 97.7 97.7 97.7 97.7 Pulse 66 68 63 Resp 18 19 B/P (MAP) 127/58 (81) 134/59 116/57 (76) Pulse Ox 100 90 O2 Delivery Room Air Room Air Room Air 12/04/18 12/04/18 12/05/18 12/05/18 23:23 23:25 00:25 01:15 Temp 97.7 97.7 97.8 97.8 97.7 97.7 97.8 97.8 Pulse 70 70 70 69 Resp 20 20 20 22 B/P (MAP) 120/56 120/56 124/58 140/63 12/05/18 12/05/18 12/05/18 12/05/18 03:07 07:00 08:00 10:57 Temp 98.1 98.0 97.8 98.1 98.0 97.8 Pulse 61 62 69 Resp 18 18 18 B/P (MAP) 151/70 (97) 134/62 (86) 135/64 (87) Pulse Ox 99 98 96 O2 Delivery Room Air Room Air Room Air Room Air Intake and Output 12/04/18 12/04/18 12/05/18 15:00 23:00 07:00 Intake Total 1277 ml 1292 ml Output Total 400 ml Balance 1277 ml 892 ml BRANDY ECHEVERRIA MD Dec 05, 2018 13:58
[2018-12-05] MEDS ORDERED: IVERMECTIN 3 MG TABLET PO ONE ×2 (14:00→14:15)
[2018-12-05] MEDS: DIPHENHYDRAMINE/ZINC ACETATE 2%/0.1% TOPICAL CREAM 28GM TUBE. TP SCH ×3 (15:07→21:16)
[2018-12-05] MEDS: PANTOPRAZOLE 40 MG TABLET.DR. PO SCH (16:21)
--- NOTE | 2018-12-05 16:41 | NUR ---
Wound Care: Wound consult for a coccyx PU and RLE stasis ulcer. Both wounds cleansed with wound wash. Stage I PU to the coccyx covered with skin prep and foam, change Q3D. RLE stasis ulcer covered with xeroform, ABD and kerlix. to change QOD. Multiple red bump noted on pt all over body, no signs of bug infestation noted, pt states that the sweat pants and shirt that she had been wearing its what caused the bumps. No other wounds noted on assessment. ABRAHAM Coleman at bedside with wound care team and informed of POC.
--- NOTE | 2018-12-05 18:03 | PDOC ---
PULMONARY PROGRESS NOTES Vitals Vital Signs Date Time Temp Pulse Resp B/P (MAP) Pulse Ox O2 Delivery O2 Flow Rate FiO2 12/05/18 17:30 97.6 74 18 158/98 97.6 12/05/18 15:00 98 Room Air General: Alert, No acute distress Lungs: Clear, Other Cardiovascular: S1, S2 Abdomen: Soft Extremities: Other Labs Laboratory Tests Test 12/04/18 17:50 12/04/18 18:05 12/04/18 18:45 12/04/18 18:47 Prothrombin Time 15.1 SEC (11.7-14.0) Prothromb Time International Ratio 1.2 (0.8-1.1) Activated Partial Thromboplast Time 27 SEC (24-38) White Blood Count 2.9 x10^3/uL (4.0-11.0) Red Blood Count 2.10 x10^6/uL (3.50-5.40) Hemoglobin 3.4 g/dL (12.0-15.5) Hematocrit 11.8 % (36.0-47.0) Mean Corpuscular Volume 56 fL (79-100) Mean Corpuscular Hemoglobin 16 pg (25-35) Mean Corpuscular Hemoglobin Concent 29 g/dL (31-37) Red Cell Distribution Width 20.8 % (11.5-14.5) Platelet Count 236 x10^3/uL (140-400) Neutrophils (%) (Auto) 45 % (31-73) Lymphocytes (%) (Auto) 25 % (24-48) Monocytes (%) (Auto) 24 % (0-9) Eosinophils (%) (Auto) 3 % (0-3) Basophils (%) (Auto) 2 % (0-3) Neutrophils # (Auto) 1.3 x10^3uL (1.8-7.7) Lymphocytes # (Auto) 0.7 x10^3/uL (1.0-4.8) Monocytes # (Auto) 0.7 x10^3/uL (0.0-1.1) Eosinophils # (Auto) 0.1 x10^3/uL (0.0-0.7) Basophils # (Auto) 0.1 x10^3/uL (0.0-0.2) Segmented Neutrophils % 61 % (35-66) Lymphocytes % 27 % (24-48) Monocytes % 10 % (0-10) Eosinophils % 1 % (0-5) Basophils % 1 % (0-3) Nucleated Red Blood Cells 1 Platelet Estimate Adequate (ADEQUATE) Polychromasia Slight Hypochromasia Marked Anisocytosis Mod Microcytosis Marked Ovalocytes Few Sodium Level 141 mmol/L (136-145) Potassium Level 2.9 mmol/L (3.5-5.1) Chloride Level 103 mmol/L (98-107) Carbon Dioxide Level 29 mmol/L (21-32) Anion Gap 9 (6-14) Blood Urea Nitrogen 11 mg/dL (7-20) Creatinine 0.9 mg/dL (0.6-1.0) Estimated GFR (Cockcroft-Gault) 59.1 BUN/Creatinine Ratio 12 (6-20) Glucose Level 104 mg/dL (70-99) Lactic Acid Level 1.1 mmol/L (0.4-2.0) Calcium Level 8.2 mg/dL (8.5-10.1) Magnesium Level 1.7 mg/dL (1.8-2.4) Total Bilirubin 0.8 mg/dL (0.2-1.0) Aspartate Amino Transf (AST/SGOT) 9 U/L (15-37) Alanine Aminotransferase (ALT/SGPT) 10 U/L (14-59) Alkaline Phosphatase 67 U/L (46-116) Creatine Kinase 8 U/L (26-192) Troponin I Quantitative 0.033 ng/mL (0.000-0.055) MX-Swv-C-Type Natriuretic Peptide 2619 pg/mL (0-449) Total Protein 5.6 g/dL (6.4-8.2) Albumin 2.9 g/dL (3.4-5.0) Albumin/Globulin Ratio 1.1 (1.0-1.7) Lipase 82 U/L (73-393) Stool Occult Blood Positive (NEG) Urine Collection Type Unknown Urine Color Yellow Urine Clarity Clear Urine pH 5.5 Urine Specific [place] 1.015 Urine Protein Negative mg/dL (NEG-TRACE) Urine Glucose (UA) Negative mg/dL (NEG) Urine Ketones (Stick) Negative mg/dL (NEG) Urine Blood Negative (NEG) Urine Nitrite Negative (NEG) Urine Bilirubin Negative (NEG) Urine Urobilinogen Dipstick 1.0 mg/dL (0.2 mg/dL) Urine Leukocyte Esterase Negative (NEG) Urine RBC 0 /HPF (0-2) Urine WBC 0 /HPF (0-4) Urine Squamous Epithelial Cells None /LPF Urine Amorphous Sediment Present /HPF Urine Bacteria 0 /HPF (0-FEW) Urine Mucus Mod /LPF Test 12/04/18 23:15 12/05/18 03:15 12/05/18 07:10 Troponin I Quantitative 0.040 ng/mL (0.000-0.055) 0.039 ng/mL (0.000-0.055) White Blood Count 3.0 x10^3/uL (4.0-11.0) Red Blood Count 2.88 x10^6/uL (3.50-5.70) Hemoglobin 6.0 g/dL (12.0-15.5) Hematocrit 19.1 % (36.0-47.0) Mean Corpuscular Volume 66 fL (79-100) Mean Corpuscular Hemoglobin 21 pg (25-35) Mean Corpuscular Hemoglobin Concent 32 g/dL (31-37) Red Cell Distribution Width 29.1 % (11.5-14.5) Platelet Count 218 x10^3/uL (140-400) Neutrophils (%) (Auto) 49 % (31-73) Lymphocytes (%) (Auto) 23 % (24-48) Monocytes (%) (Auto) 21 % (0-9) Eosinophils (%) (Auto) 5 % (0-3) Basophils (%) (Auto) 1 % (0-3) Neutrophils # (Auto) 1.5 x10^3uL (1.8-7.7) Lymphocytes # (Auto) 0.7 x10^3/uL (1.0-4.8) Monocytes # (Auto) 0.6 x10^3/uL (0.0-1.1) Eosinophils # (Auto) 0.2 x10^3/uL (0.0-0.7) Basophils # (Auto) 0.0 x10^3/uL (0.0-0.2) Absolute Reticulocyte Count 0.055 x10^6/uL (0.020-0.120) Percent Reticulocyte Count 1.9 % (0.5-2.3) Immature Reticulocyte Fraction 0.50 (0.20-0.60) Sodium Level 138 mmol/L (136-145) Potassium Level 3.3 mmol/L (3.5-5.1) Chloride Level 102 mmol/L (98-107) Carbon Dioxide Level 28 mmol/L (21-32) Anion Gap 8 (6-14) Blood Urea Nitrogen 9 mg/dL (7-20) Creatinine 0.8 mg/dL (0.6-1.0) Estimated GFR (Cockcroft-Gault) 67.7 Glucose Level 103 mg/dL (70-99) Calcium Level 8.3 mg/dL (8.5-10.1) Iron Level 32 ug/dL (50-170) Total Iron Binding Capacity 366 ug/dL (250-450) Iron Saturation 9 % (15-34) Vitamin B12 Level 339 pg/mL (247-911) Thyroid Stimulating Hormone (TSH) 4.151 uIU/mL (0.358-3.74) Free Thyroxine 0.86 ng/dL (0.76-1.46) Free Triiodothyronine (T3) pg/mL 1.45 pg/mL (2.18-3.98) Laboratory Tests Test 12/04/18 18:05 12/04/18 18:45 12/04/18 18:47 12/04/18 23:15 White Blood Count 2.9 x10^3/uL (4.0-11.0) Red Blood Count 2.10 x10^6/uL (3.50-5.40) Hemoglobin 3.4 g/dL (12.0-15.5) Hematocrit 11.8 % (36.0-47.0) Mean Corpuscular Volume 56 fL (79-100) Mean Corpuscular Hemoglobin 16 pg (25-35) Mean Corpuscular Hemoglobin Concent 29 g/dL (31-37) Red Cell Distribution Width 20.8 % (11.5-14.5) Platelet Count 236 x10^3/uL (140-400) Neutrophils (%) (Auto) 45 % (31-73) Lymphocytes (%) (Auto) 25 % (24-48) Monocytes (%) (Auto) 24 % (0-9) Eosinophils (%) (Auto) 3 % (0-3) Basophils (%) (Auto) 2 % (0-3) Neutrophils # (Auto) 1.3 x10^3uL (1.8-7.7) Lymphocytes # (Auto) 0.7 x10^3/uL (1.0-4.8) Monocytes # (Auto) 0.7 x10^3/uL (0.0-1.1) Eosinophils # (Auto) 0.1 x10^3/uL (0.0-0.7) Basophils # (Auto) 0.1 x10^3/uL (0.0-0.2) Segmented Neutrophils % 61 % (35-66) Lymphocytes % 27 % (24-48) Monocytes % 10 % (0-10) Eosinophils % 1 % (0-5) Basophils % 1 % (0-3) Nucleated Red Blood Cells 1 Platelet Estimate Adequate (ADEQUATE) Polychromasia Slight Hypochromasia Marked Anisocytosis Mod Microcytosis Marked Ovalocytes Few Sodium Level 141 mmol/L (136-145) Potassium Level 2.9 mmol/L (3.5-5.1) Chloride Level 103 mmol/L (98-107) Carbon Dioxide Level 29 mmol/L (21-32) Anion Gap 9 (6-14) Blood Urea Nitrogen 11 mg/dL (7-20) Creatinine 0.9 mg/dL (0.6-1.0) Estimated GFR (Cockcroft-Gault) 59.1 BUN/Creatinine Ratio 12 (6-20) Glucose Level 104 mg/dL (70-99) Lactic Acid Level 1.1 mmol/L (0.4-2.0) Calcium Level 8.2 mg/dL (8.5-10.1) Magnesium Level 1.7 mg/dL (1.8-2.4) Total Bilirubin 0.8 mg/dL (0.2-1.0) Aspartate Amino Transf (AST/SGOT) 9 U/L (15-37) Alanine Aminotransferase (ALT/SGPT) 10 U/L (14-59) Alkaline Phosphatase 67 U/L (46-116) Creatine Kinase 8 U/L (26-192) Troponin I Quantitative 0.033 ng/mL (0.000-0.055) 0.040 ng/mL (0.000-0.055) DH-Gzo-M-Type Natriuretic Peptide 2619 pg/mL (0-449) Total Protein 5.6 g/dL (6.4-8.2) Albumin 2.9 g/dL (3.4-5.0) Albumin/Globulin Ratio 1.1 (1.0-1.7) Lipase 82 U/L (73-393) Stool Occult Blood Positive (NEG) Urine Collection Type Unknown Urine Color Yellow Urine Clarity Clear Urine pH 5.5 Urine Specific [place] 1.015 Urine Protein Negative mg/dL (NEG-TRACE) Urine Glucose (UA) Negative mg/dL (NEG) Urine Ketones (Stick) Negative mg/dL (NEG) Urine Blood Negative (NEG) Urine Nitrite Negative (NEG) Urine Bilirubin Negative (NEG) Urine Urobilinogen Dipstick 1.0 mg/dL (0.2 mg/dL) Urine Leukocyte Esterase Negative (NEG) Urine RBC 0 /HPF (0-2) Urine WBC 0 /HPF (0-4) Urine Squamous Epithelial Cells None /LPF Urine Amorphous Sediment Present /HPF Urine Bacteria 0 /HPF (0-FEW) Urine Mucus Mod /LPF Test 12/05/18 03:15 12/05/18 07:10 Troponin I Quantitative 0.039 ng/mL (0.000-0.055) White Blood Count 3.0 x10^3/uL (4.0-11.0) Red Blood Count 2.88 x10^6/uL (3.50-5.70) Hemoglobin 6.0 g/dL (12.0-15.5) Hematocrit 19.1 % (36.0-47.0) Mean Corpuscular Volume 66 fL (79-100) Mean Corpuscular Hemoglobin 21 pg (25-35) Mean Corpuscular Hemoglobin Concent 32 g/dL (31-37) Red Cell Distribution Width 29.1 % (11.5-14.5) Platelet Count 218 x10^3/uL (140-400) Neutrophils (%) (Auto) 49 % (31-73) Lymphocytes (%) (Auto) 23 % (24-48) Monocytes (%) (Auto) 21 % (0-9) Eosinophils (%) (Auto) 5 % (0-3) Basophils (%) (Auto) 1 % (0-3) Neutrophils # (Auto) 1.5 x10^3uL (1.8-7.7) Lymphocytes # (Auto) 0.7 x10^3/uL (1.0-4.8) Monocytes # (Auto) 0.6 x10^3/uL (0.0-1.1) Eosinophils # (Auto) 0.2 x10^3/uL (0.0-0.7) Basophils # (Auto) 0.0 x10^3/uL (0.0-0.2) Absolute Reticulocyte Count 0.055 x10^6/uL (0.020-0.120) Percent Reticulocyte Count 1.9 % (0.5-2.3) Immature Reticulocyte Fraction 0.50 (0.20-0.60) Sodium Level 138 mmol/L (136-145) Potassium Level 3.3 mmol/L (3.5-5.1) Chloride Level 102 mmol/L (98-107) Carbon Dioxide Level 28 mmol/L (21-32) Anion Gap 8 (6-14) Blood Urea Nitrogen 9 mg/dL (7-20) Creatinine 0.8 mg/dL (0.6-1.0) Estimated GFR (Cockcroft-Gault) 67.7 Glucose Level 103 mg/dL (70-99) Calcium Level 8.3 mg/dL (8.5-10.1) Iron Level 32 ug/dL (50-170) Total Iron Binding Capacity 366 ug/dL (250-450) Iron Saturation 9 % (15-34) Vitamin B12 Level 339 pg/mL (247-911) Thyroid Stimulating Hormone (TSH) 4.151 uIU/mL (0.358-3.74) Free Thyroxine 0.86 ng/dL (0.76-1.46) Free Triiodothyronine (T3) pg/mL 1.45 pg/mL (2.18-3.98) Medications Active Scripts Medications Dose Route/Sig Max Daily Dose Days Date Category Ferrous Sulfate 325 Mg Tablet 1 Tab PO BID 02/12/15 Rx Impression . FULL NOTE DICTATED THANKS WILL OBTAIN A CT CHEST WALDEMAR GARAY MD Dec 05, 2018 18:03
[2018-12-05 19:41] LABS: HEMATOCRIT 26.1 % (36.0-47.0); HEMOGLOBIN 8.2 g/dL (12.0-15.5)
[2018-12-05] MEDS ORDERED: FERROUS SULFATE 325 MG TABLET. PO SCH (21:00)
[2018-12-05] MEDS: cefTRIAXone IV Push 1 GM VIAL. IVP SCH (21:17)
[2018-12-06] VITALS (7 sets, daily range): BP systolic 134–159; BP diastolic 62–99
--- NOTE | 2018-12-06 01:52 | CONS ---
DATE OF CONSULTATION: 12/05/2018 ATTENDING PHYSICIAN: Dr. Espinoza. REASON FOR CONSULTATION: The patient seen in pulmonary consultation at the request of Dr. Espinoza for abnormal x-ray. HISTORY OF PRESENT ILLNESS: The patient is an 88-year-old female that presented to the Emergency Room with some chest pain. Part of the workup included chest x-ray, which revealed possible consolidation or mass on the left side. I was asked to see her in consultation. The patient denies productive cough, no fever, chills or night sweats. No hemoptysis. PAST MEDICAL HISTORY: Otherwise remarkable for anemia, osteopenia, previous pneumonia, arthritis. PAST SURGICAL HISTORY: No recent major surgeries. ALLERGIES: No known drug allergies. FAMILY HISTORY: Hypertension. SOCIAL HISTORY: She is retired. Denies any alcohol or tobacco use. REVIEW OF SYSTEMS: As indicated above was reviewed and negative. CURRENT MEDICATIONS: List was reviewed. PHYSICAL EXAMINATION: GENERAL: Frail appearing white female with no respiratory distress on room air. VITAL SIGNS: Saturation greater than 92%. HEENT: Eyes, the sclerae were nonicteric. NECK: Jugular venous distention was not elevated. No lymphadenopathy. CHEST: Full expansion. LUNGS: Adequate airway flow with diminished breath sounds in the bases. CARDIOVASCULAR: Regular rate and rhythm with S1, S2, no S3. ABDOMEN: Soft, nontender, nondistended. EXTREMITIES: No clubbing, cyanosis or edema. NEUROLOGIC: The patient was awake, alert, following commands. A detailed neuro exam not performed. LABORATORY DATA: Reviewed. White count was normal. Hemoglobin and hematocrit were noted. Electrolytes were noted. Chest x-ray as indicated above. IMPRESSION: 1. Abnormal x-ray compatible with possible lung mass. 2. Acute blood loss anemia. 3. Cellulitis. 4. Hypokalemia. 5. Hypomagnesemia. 6. Possible pneumonia. PLAN: 1. Continue current antibiotics. 2. CT chest. 3. Monitor hemoglobin and hematocrit. 4. Consult GI, already performed. I do appreciate sharing in the patient's care. WALDEMAR GARAY MD DR: MIGUEL ANGEL/jen JOB#: [id number] / [id number]
[2018-12-06] MEDS: FERROUS SULFATE 325 MG TABLET. PO SCH ×2 (08:21→20:17)
[2018-12-06] MEDS: PANTOPRAZOLE 40 MG TABLET.DR. PO SCH (08:21)
[2018-12-06 08:22] LABS: HEMOGLOBIN 7.4 g/dL (12.0-15.5); RED BLOOD COUNT 3.41 x10^6/uL (3.50-5.40); RED CELL DISTRIBUTION WIDTH 27.8 % (11.5-14.5); WHITE BLOOD COUNT 7.6 x10^3/uL (4.0-11.0)
[2018-12-06] MEDS: DIPHENHYDRAMINE/ZINC ACETATE 2%/0.1% TOPICAL CREAM 28GM TUBE. TP SCH ×4 (08:23→20:24)
--- NOTE | 2018-12-06 09:05 | PDOC ---
PULMONARY PROGRESS NOTES Subjective PT NOR MORE SOA NO CHEST PAIN Vitals Vital Signs Date Time Temp Pulse Resp B/P (MAP) Pulse Ox O2 Delivery O2 Flow Rate FiO2 12/06/18 07:47 Room Air 12/06/18 07:00 98.1 86 18 145/99 (114) 93 98.1 ROS: No Nausea, No Chest Pain, No Abdominal Pain, No Increase Cough General: Alert, No acute distress Lungs: Crackles Cardiovascular: S1, S2 Abdomen: Soft Neuro Exam: Alert Extremities: No Edema Skin: Warm Labs Laboratory Tests Test 12/04/18 17:50 12/04/18 18:05 12/04/18 18:45 12/04/18 18:47 Prothrombin Time 15.1 SEC (11.7-14.0) Prothromb Time International Ratio 1.2 (0.8-1.1) Activated Partial Thromboplast Time 27 SEC (24-38) White Blood Count 2.9 x10^3/uL (4.0-11.0) Red Blood Count 2.10 x10^6/uL (3.50-5.40) Hemoglobin 3.4 g/dL (12.0-15.5) Hematocrit 11.8 % (36.0-47.0) Mean Corpuscular Volume 56 fL (79-100) Mean Corpuscular Hemoglobin 16 pg (25-35) Mean Corpuscular Hemoglobin Concent 29 g/dL (31-37) Red Cell Distribution Width 20.8 % (11.5-14.5) Platelet Count 236 x10^3/uL (140-400) Neutrophils (%) (Auto) 45 % (31-73) Lymphocytes (%) (Auto) 25 % (24-48) Monocytes (%) (Auto) 24 % (0-9) Eosinophils (%) (Auto) 3 % (0-3) Basophils (%) (Auto) 2 % (0-3) Neutrophils # (Auto) 1.3 x10^3uL (1.8-7.7) Lymphocytes # (Auto) 0.7 x10^3/uL (1.0-4.8) Monocytes # (Auto) 0.7 x10^3/uL (0.0-1.1) Eosinophils # (Auto) 0.1 x10^3/uL (0.0-0.7) Basophils # (Auto) 0.1 x10^3/uL (0.0-0.2) Segmented Neutrophils % 61 % (35-66) Lymphocytes % 27 % (24-48) Monocytes % 10 % (0-10) Eosinophils % 1 % (0-5) Basophils % 1 % (0-3) Nucleated Red Blood Cells 1 Platelet Estimate Adequate (ADEQUATE) Polychromasia Slight Hypochromasia Marked Anisocytosis Mod Microcytosis Marked Ovalocytes Few Sodium Level 141 mmol/L (136-145) Potassium Level 2.9 mmol/L (3.5-5.1) Chloride Level 103 mmol/L (98-107) Carbon Dioxide Level 29 mmol/L (21-32) Anion Gap 9 (6-14) Blood Urea Nitrogen 11 mg/dL (7-20) Creatinine 0.9 mg/dL (0.6-1.0) Estimated GFR (Cockcroft-Gault) 59.1 BUN/Creatinine Ratio 12 (6-20) Glucose Level 104 mg/dL (70-99) Lactic Acid Level 1.1 mmol/L (0.4-2.0) Calcium Level 8.2 mg/dL (8.5-10.1) Magnesium Level 1.7 mg/dL (1.8-2.4) Total Bilirubin 0.8 mg/dL (0.2-1.0) Aspartate Amino Transf (AST/SGOT) 9 U/L (15-37) Alanine Aminotransferase (ALT/SGPT) 10 U/L (14-59) Alkaline Phosphatase 67 U/L (46-116) Creatine Kinase 8 U/L (26-192) Troponin I Quantitative 0.033 ng/mL (0.000-0.055) DI-Kli-R-Type Natriuretic Peptide 2619 pg/mL (0-449) Total Protein 5.6 g/dL (6.4-8.2) Albumin 2.9 g/dL (3.4-5.0) Albumin/Globulin Ratio 1.1 (1.0-1.7) Lipase 82 U/L (73-393) Stool Occult Blood Positive (NEG) Urine Collection Type Unknown Urine Color Yellow Urine Clarity Clear Urine pH 5.5 Urine Specific [place] 1.015 Urine Protein Negative mg/dL (NEG-TRACE) Urine Glucose (UA) Negative mg/dL (NEG) Urine Ketones (Stick) Negative mg/dL (NEG) Urine Blood Negative (NEG) Urine Nitrite Negative (NEG) Urine Bilirubin Negative (NEG) Urine Urobilinogen Dipstick 1.0 mg/dL (0.2 mg/dL) Urine Leukocyte Esterase Negative (NEG) Urine RBC 0 /HPF (0-2) Urine WBC 0 /HPF (0-4) Urine Squamous Epithelial Cells None /LPF Urine Amorphous Sediment Present /HPF Urine Bacteria 0 /HPF (0-FEW) Urine Mucus Mod /LPF Test 12/04/18 23:15 12/05/18 03:15 12/05/18 07:10 12/05/18 19:35 Troponin I Quantitative 0.040 ng/mL (0.000-0.055) 0.039 ng/mL (0.000-0.055) White Blood Count 3.0 x10^3/uL (4.0-11.0) Red Blood Count 2.88 x10^6/uL (3.50-5.70) Hemoglobin 6.0 g/dL (12.0-15.5) 8.2 g/dL (12.0-15.5) Hematocrit 19.1 % (36.0-47.0) 26.1 % (36.0-47.0) Mean Corpuscular Volume 66 fL (79-100) Mean Corpuscular Hemoglobin 21 pg (25-35) Mean Corpuscular Hemoglobin Concent 32 g/dL (31-37) Red Cell Distribution Width 29.1 % (11.5-14.5) Platelet Count 218 x10^3/uL (140-400) Neutrophils (%) (Auto) 49 % (31-73) Lymphocytes (%) (Auto) 23 % (24-48) Monocytes (%) (Auto) 21 % (0-9) Eosinophils (%) (Auto) 5 % (0-3) Basophils (%) (Auto) 1 % (0-3) Neutrophils # (Auto) 1.5 x10^3uL (1.8-7.7) Lymphocytes # (Auto) 0.7 x10^3/uL (1.0-4.8) Monocytes # (Auto) 0.6 x10^3/uL (0.0-1.1) Eosinophils # (Auto) 0.2 x10^3/uL (0.0-0.7) Basophils # (Auto) 0.0 x10^3/uL (0.0-0.2) Absolute Reticulocyte Count 0.055 x10^6/uL (0.020-0.120) Percent Reticulocyte Count 1.9 % (0.5-2.3) Immature Reticulocyte Fraction 0.50 (0.20-0.60) Sodium Level 138 mmol/L (136-145) Potassium Level 3.3 mmol/L (3.5-5.1) Chloride Level 102 mmol/L (98-107) Carbon Dioxide Level 28 mmol/L (21-32) Anion Gap 8 (6-14) Blood Urea Nitrogen 9 mg/dL (7-20) Creatinine 0.8 mg/dL (0.6-1.0) Estimated GFR (Cockcroft-Gault) 67.7 Glucose Level 103 mg/dL (70-99) Calcium Level 8.3 mg/dL (8.5-10.1) Iron Level 32 ug/dL (50-170) Total Iron Binding Capacity 366 ug/dL (250-450) Iron Saturation 9 % (15-34) Vitamin B12 Level 339 pg/mL (247-911) Thyroid Stimulating Hormone (TSH) 4.151 uIU/mL (0.358-3.74) Free Thyroxine 0.86 ng/dL (0.76-1.46) Free Triiodothyronine (T3) pg/mL 1.45 pg/mL (2.18-3.98) Test 12/06/18 07:23 White Blood Count 7.6 x10^3/uL (4.0-11.0) Red Blood Count 3.41 x10^6/uL (3.50-5.40) Hemoglobin 7.4 g/dL (12.0-15.5) Hematocrit 23.0 % (36.0-47.0) Mean Corpuscular Volume 67 fL (79-100) Mean Corpuscular Hemoglobin 22 pg (25-35) Mean Corpuscular Hemoglobin Concent 32 g/dL (31-37) Red Cell Distribution Width 27.8 % (11.5-14.5) Platelet Count 198 x10^3/uL (140-400) Laboratory Tests Test 12/05/18 19:35 12/06/18 07:23 Hemoglobin 8.2 g/dL (12.0-15.5) 7.4 g/dL (12.0-15.5) Hematocrit 26.1 % (36.0-47.0) 23.0 % (36.0-47.0) White Blood Count 7.6 x10^3/uL (4.0-11.0) Red Blood Count 3.41 x10^6/uL (3.50-5.40) Mean Corpuscular Volume 67 fL (79-100) Mean Corpuscular Hemoglobin 22 pg (25-35) Mean Corpuscular Hemoglobin Concent 32 g/dL (31-37) Red Cell Distribution Width 27.8 % (11.5-14.5) Platelet Count 198 x10^3/uL (140-400) Medications Active Scripts Medications Dose Route/Sig Max Daily Dose Days Date Category Ferrous Sulfate 325 Mg Tablet 1 Tab PO BID 02/12/15 Rx Impression . IMPRESSION: 1. Abnormal x-ray compatible with possible lung mass. 2. Acute blood loss anemia. 3. Cellulitis. 4. Hypokalemia. 5. Hypomagnesemia. 6. Possible pneumonia. IMPRESSION: 1. Moderate cardiomegaly with calcific plaquing of the aorta and coronary arteries. 2. Small ongoing bilateral pleural effusions likely due to chronic congestive heart failure. 3. Large hiatal hernia. 4. Incompletely visualized gallbladder calcifications. 5. Small calcified splenic artery aneurysm. Plan . FLUID IN FISSURE ON LEFT DIURESE NO FUTHER WORK UP NEEDED NO SIGN OF CANCER ON CT CHEST WALDEMAR GARAY MD Dec 06, 2018 09:05
[2018-12-06] MEDS ORDERED: cloNIDine HCL 0.1 MG TABLET PO PRN (09:30)
--- NOTE | 2018-12-06 11:04 | PDOC ---
PROGRESS NOTES Chief Complaint Chief Complaint Acute precipitous drop in hemoglobin Encephalopathy? Could be her baseline Long toenails Microcytic anemia Hypokalemia Rash back-bedbugs? Lung mass History of Present Illness History of Present Illness hgb 7 after 2 or 3 pack RBCs It is CARIE, on ferrous sulfate, GI on board Just had a CAT scan of the chest because of a lung mass finding-pulmonary on board Fecal occult is still pending Patient has no complaints Status post ivermectin for rule out scabies in the back, some rash - seems to be getting better Plan: follow-up CT chest for that lung mass Monitor that hemoglobin, 7.4 only after 2 or 3 pack RBC Follow-up fecal occult PT OT Discussed with RN Vitals Vitals Vital Signs Date Time Temp Pulse Resp B/P (MAP) Pulse Ox O2 Delivery O2 Flow Rate FiO2 12/06/18 07:47 Room Air 12/06/18 07:00 98.1 86 18 145/99 (114) 93 98.1 Physical Exam General: Alert, Cooperative, No acute distress Heart: Regular rate, Normal S1, Normal S2 Lungs: Clear, Other Abdomen: Soft, No tenderness Extremities: No clubbing, No cyanosis, No edema Skin: No rashes, No breakdown, Other (bug bites, back, some scaling) Labs LABS Laboratory Tests Test 12/05/18 19:35 12/06/18 07:23 Hemoglobin 8.2 g/dL (12.0-15.5) 7.4 g/dL (12.0-15.5) Hematocrit 26.1 % (36.0-47.0) 23.0 % (36.0-47.0) White Blood Count 7.6 x10^3/uL (4.0-11.0) Red Blood Count 3.41 x10^6/uL (3.50-5.40) Mean Corpuscular Volume 67 fL (79-100) Mean Corpuscular Hemoglobin 22 pg (25-35) Mean Corpuscular Hemoglobin Concent 32 g/dL (31-37) Red Cell Distribution Width 27.8 % (11.5-14.5) Platelet Count 198 x10^3/uL (140-400) Review of Systems Review of Systems A 14 point ROS was completed with the following noted as positive: Other systems reviewed and negative. \CONSTITUTIONAL: No fever or chills EYES: No recent changes SKIN: No rash or itching CARDIOVASCULAR: No chest pain, syncope, palpitations, or edema RESPIRATORY: No SOB or cough GASTROINTESTINAL: No nausea, vomiting or abdominal pain NEUROLOGICAL: No headaches or weakness ENDOCRINE: No cold or heat intolerance GENITOURINARY: No urgency or frequency of urination MUSCULOSKELETAL: No back pain or joint pain LYMPHATICS: No enlarged lymph nodes PSYCHIATRIC: No anxiety or depression Assessment and Plan Assessmemt and Plan Problems Medical Problems: (1) Chest pain Status: Acute (2) Hypokalemia Status: Acute (3) Hypomagnesemia Status: Acute (4) Pneumonia Status: Acute (5) Severe anemia Status: Acute Comment Review of Relevant I have reviewed the following items lavern (where applicable) has been applied. Labs Laboratory Tests Test 12/04/18 17:50 12/04/18 18:05 12/04/18 18:45 12/04/18 18:47 Prothrombin Time 15.1 SEC (11.7-14.0) Prothromb Time International Ratio 1.2 (0.8-1.1) Activated Partial Thromboplast Time 27 SEC (24-38) White Blood Count 2.9 x10^3/uL (4.0-11.0) Red Blood Count 2.10 x10^6/uL (3.50-5.40) Hemoglobin 3.4 g/dL (12.0-15.5) Hematocrit 11.8 % (36.0-47.0) Mean Corpuscular Volume 56 fL (79-100) Mean Corpuscular Hemoglobin 16 pg (25-35) Mean Corpuscular Hemoglobin Concent 29 g/dL (31-37) Red Cell Distribution Width 20.8 % (11.5-14.5) Platelet Count 236 x10^3/uL (140-400) Neutrophils (%) (Auto) 45 % (31-73) Lymphocytes (%) (Auto) 25 % (24-48) Monocytes (%) (Auto) 24 % (0-9) Eosinophils (%) (Auto) 3 % (0-3) Basophils (%) (Auto) 2 % (0-3) Neutrophils # (Auto) 1.3 x10^3uL (1.8-7.7) Lymphocytes # (Auto) 0.7 x10^3/uL (1.0-4.8) Monocytes # (Auto) 0.7 x10^3/uL (0.0-1.1) Eosinophils # (Auto) 0.1 x10^3/uL (0.0-0.7) Basophils # (Auto) 0.1 x10^3/uL (0.0-0.2) Segmented Neutrophils % 61 % (35-66) Lymphocytes % 27 % (24-48) Monocytes % 10 % (0-10) Eosinophils % 1 % (0-5) Basophils % 1 % (0-3) Nucleated Red Blood Cells 1 Platelet Estimate Adequate (ADEQUATE) Polychromasia Slight Hypochromasia Marked Anisocytosis Mod Microcytosis Marked Ovalocytes Few Sodium Level 141 mmol/L (136-145) Potassium Level 2.9 mmol/L (3.5-5.1) Chloride Level 103 mmol/L (98-107) Carbon Dioxide Level 29 mmol/L (21-32) Anion Gap 9 (6-14) Blood Urea Nitrogen 11 mg/dL (7-20) Creatinine 0.9 mg/dL (0.6-1.0) Estimated GFR (Cockcroft-Gault) 59.1 BUN/Creatinine Ratio 12 (6-20) Glucose Level 104 mg/dL (70-99) Lactic Acid Level 1.1 mmol/L (0.4-2.0) Calcium Level 8.2 mg/dL (8.5-10.1) Magnesium Level 1.7 mg/dL (1.8-2.4) Total Bilirubin 0.8 mg/dL (0.2-1.0) Aspartate Amino Transf (AST/SGOT) 9 U/L (15-37) Alanine Aminotransferase (ALT/SGPT) 10 U/L (14-59) Alkaline Phosphatase 67 U/L (46-116) Creatine Kinase 8 U/L (26-192) Troponin I Quantitative 0.033 ng/mL (0.000-0.055) WS-Wqc-U-Type Natriuretic Peptide 2619 pg/mL (0-449) Total Protein 5.6 g/dL (6.4-8.2) Albumin 2.9 g/dL (3.4-5.0) Albumin/Globulin Ratio 1.1 (1.0-1.7) Lipase 82 U/L (73-393) Stool Occult Blood Positive (NEG) Urine Collection Type Unknown Urine Color Yellow Urine Clarity Clear Urine pH 5.5 Urine Specific [place] 1.015 Urine Protein Negative mg/dL (NEG-TRACE) Urine Glucose (UA) Negative mg/dL (NEG) Urine Ketones (Stick) Negative mg/dL (NEG) Urine Blood Negative (NEG) Urine Nitrite Negative (NEG) Urine Bilirubin Negative (NEG) Urine Urobilinogen Dipstick 1.0 mg/dL (0.2 mg/dL) Urine Leukocyte Esterase Negative (NEG) Urine RBC 0 /HPF (0-2) Urine WBC 0 /HPF (0-4) Urine Squamous Epithelial Cells None /LPF Urine Amorphous Sediment Present /HPF Urine Bacteria 0 /HPF (0-FEW) Urine Mucus Mod /LPF Test 12/04/18 23:15 12/05/18 03:15 12/05/18 07:10 12/05/18 19:35 Troponin I Quantitative 0.040 ng/mL (0.000-0.055) 0.039 ng/mL (0.000-0.055) White Blood Count 3.0 x10^3/uL (4.0-11.0) Red Blood Count 2.88 x10^6/uL (3.50-5.70) Hemoglobin 6.0 g/dL (12.0-15.5) 8.2 g/dL (12.0-15.5) Hematocrit 19.1 % (36.0-47.0) 26.1 % (36.0-47.0) Mean Corpuscular Volume 66 fL (79-100) Mean Corpuscular Hemoglobin 21 pg (25-35) Mean Corpuscular Hemoglobin Concent 32 g/dL (31-37) Red Cell Distribution Width 29.1 % (11.5-14.5) Platelet Count 218 x10^3/uL (140-400) Neutrophils (%) (Auto) 49 % (31-73) Lymphocytes (%) (Auto) 23 % (24-48) Monocytes (%) (Auto) 21 % (0-9) Eosinophils (%) (Auto) 5 % (0-3) Basophils (%) (Auto) 1 % (0-3) Neutrophils # (Auto) 1.5 x10^3uL (1.8-7.7) Lymphocytes # (Auto) 0.7 x10^3/uL (1.0-4.8) Monocytes # (Auto) 0.6 x10^3/uL (0.0-1.1) Eosinophils # (Auto) 0.2 x10^3/uL (0.0-0.7) Basophils # (Auto) 0.0 x10^3/uL (0.0-0.2) Absolute Reticulocyte Count 0.055 x10^6/uL (0.020-0.120) Percent Reticulocyte Count 1.9 % (0.5-2.3) Immature Reticulocyte Fraction 0.50 (0.20-0.60) Sodium Level 138 mmol/L (136-145) Potassium Level 3.3 mmol/L (3.5-5.1) Chloride Level 102 mmol/L (98-107) Carbon Dioxide Level 28 mmol/L (21-32) Anion Gap 8 (6-14) Blood Urea Nitrogen 9 mg/dL (7-20) Creatinine 0.8 mg/dL (0.6-1.0) Estimated GFR (Cockcroft-Gault) 67.7 Glucose Level 103 mg/dL (70-99) Calcium Level 8.3 mg/dL (8.5-10.1) Iron Level 32 ug/dL (50-170) Total Iron Binding Capacity 366 ug/dL (250-450) Iron Saturation 9 % (15-34) Vitamin B12 Level 339 pg/mL (247-911) Thyroid Stimulating Hormone (TSH) 4.151 uIU/mL (0.358-3.74) Free Thyroxine 0.86 ng/dL (0.76-1.46) Free Triiodothyronine (T3) pg/mL 1.45 pg/mL (2.18-3.98) Test 12/06/18 07:23 White Blood Count 7.6 x10^3/uL (4.0-11.0) Red Blood Count 3.41 x10^6/uL (3.50-5.40) Hemoglobin 7.4 g/dL (12.0-15.5) Hematocrit 23.0 % (36.0-47.0) Mean Corpuscular Volume 67 fL (79-100) Mean Corpuscular Hemoglobin 22 pg (25-35) Mean Corpuscular Hemoglobin Concent 32 g/dL (31-37) Red Cell Distribution Width 27.8 % (11.5-14.5) Platelet Count 198 x10^3/uL (140-400) Laboratory Tests Test 12/05/18 19:35 12/06/18 07:23 Hemoglobin 8.2 g/dL (12.0-15.5) 7.4 g/dL (12.0-15.5) Hematocrit 26.1 % (36.0-47.0) 23.0 % (36.0-47.0) White Blood Count 7.6 x10^3/uL (4.0-11.0) Red Blood Count 3.41 x10^6/uL (3.50-5.40) Mean Corpuscular Volume 67 fL (79-100) Mean Corpuscular Hemoglobin 22 pg (25-35) Mean Corpuscular Hemoglobin Concent 32 g/dL (31-37) Red Cell Distribution Width 27.8 % (11.5-14.5) Platelet Count 198 x10^3/uL (140-400) Microbiology 12/04/18 Blood Culture - Preliminary, Resulted NO GROWTH AFTER 1 DAY Medications Current Medications Sodium Chloride 1,000 ml @ 1,000 mls/hr 1X ONCE IV Last administered on 12/04/18at 18:20; Start 12/04/18 at 18:30; Stop 12/04/18 at 19:29; Status DC Neomycin/ Polymyxin/ Bacitracin (Triple Antibiotic Ointment) 1 pkt 1X ONCE TP Last administered on 12/04/18at 18:50; Start 12/04/18 at 19:00; Stop 12/04/18 at 19:01; Status DC Piperacillin Sod/ Tazobactam Sod 4.5 gm/Sodium Chloride 100 ml @ 200 mls/hr 1X ONCE IV Last administered on 12/04/18at 19:43; Start 12/04/18 at 19:00; Stop 12/04/18 at 19:29; Status DC Pantoprazole Sodium (PROTONIX VIAL for IV PUSH) 80 mg 1X ONCE IVP Last administered on 12/04/18at 20:04; Start 12/04/18 at 19:45; Stop 12/04/18 at 19:46; Status DC Pantoprazole Sodium 80 mg/ Sodium Chloride 100 ml @ 10 mls/hr 1X ONCE IV Last administered on 12/04/18at 19:46; Start 12/04/18 at 19:45; Stop 12/05/18 at 05:44; Status DC Magnesium Sulfate 50 ml @ 25 mls/hr 1X ONCE IV Last administered on 12/04/18at 20:04; Start 12/04/18 at 19:45; Stop 12/04/18 at 21:44; Status DC Potassium Chloride (Klor-Con) 40 meq 1X ONCE PO Last administered on 12/04/18at 19:43; Start 12/04/18 at 19:45; Stop 12/04/18 at 19:46; Status DC Ondansetron HCl (Zofran) 4 mg PRN Q8HRS PRN IV NAUSEA/VOMITING; Start 12/04/18 at 19:45; Stop 12/05/18 at 13:17; Status DC Pantoprazole Sodium 80 mg/ Sodium Chloride 100 ml @ 10 mls/hr Q10H IV Last administered on 12/05/18at 03:49; Start 12/05/18 at 03:45; Stop 12/05/18 at 10:23; Status DC Pantoprazole Sodium (Protonix) 40 mg DAILYAC PO Last administered on 12/06/18at 08:21; Start 12/05/18 at 15:00 Ferrous Sulfate (Feosol) 325 mg BID PO Last administered on 12/06/18at 08:21; Start 12/05/18 at 11:00 Ondansetron HCl (Zofran) 4 mg PRN Q6HRS PRN IV NAUSEA/VOMITING; Start 12/05/18 at 13:30 Ferrous Sulfate (Feosol) 325 mg BID PO ; Start 12/05/18 at 21:00; Stop 12/05/18 at 21:00; Status DC Acetaminophen (Tylenol) 500 mg PRN Q6HRS PRN PO HEADACHE / TEMP; Start 12/05/18 at 13:30 Acetaminophen/ Codeine Phosphate (Tylenol #3) 1 tab PRN Q6HRS PRN PO PAIN; Start 12/05/18 at 13:30 Ivermectin (Stromectol) 3 mg 1X ONCE PO ; Start 12/05/18 at 14:00; Stop 11/19 01/06 at 14:01; Status Cancel Zinc Acetate/ Diphenhydramine (Benadryl Topical) 1 biju QID TP Last administered on 12/06/18at 08:23; Start 12/05/18 at 14:00 Ivermectin (Stromectol) 12 mg 1X ONCE PO Last administered on 12/05/18at 15:07; Start 12/05/18 at 14:15; Stop 12/05/18 at 14:16; Status DC Ceftriaxone Sodium (Rocephin) 1 gm Q24H IVP Last administered on 12/05/18at 21:17; Start 12/05/18 at 20:00 Clonidine HCl (Catapres) 0.1 mg PRN Q1HR PRN PO HYPERTENSION; Start 12/06/18 at 09:30 Active Scripts Active Ferrous Sulfate 325 Mg Tablet 1 Tab PO BID Vitals/I & O Vital Sign - Last 24 Hours 12/05/18 12/05/18 12/05/18 12/05/18 15:00 15:22 15:37 17:30 Temp 97.6 97.6 97.6 97.6 97.6 97.6 97.6 97.6 Pulse 80 87 74 Resp 18 16 16 18 B/P (MAP) 147/67 (93) 147/67 157/72 158/98 Pulse Ox 98 O2 Delivery Room Air 12/05/18 12/05/18 12/05/18 12/06/18 19:06 20:00 23:00 00:40 Temp 97.5 98.0 97.5 98.0 Pulse 69 79 Resp 20 20 B/P (MAP) 152/68 (96) 177/72 (107) 159/70 (99) Pulse Ox 100 94 O2 Delivery Room Air Room Air Room Air 12/06/18 12/06/18 12/06/18 03:00 07:00 07:47 Temp 98.0 98.1 98.0 98.1 Pulse 89 86 Resp 18 18 B/P (MAP) 145/77 (99) 145/99 (114) Pulse Ox 95 93 O2 Delivery Room Air Room Air Room Air Intake and Output 12/05/18 12/05/18 12/06/18 15:00 23:00 07:00 Intake Total 1420 ml Output Total 200 ml 125 ml 0 ml Balance -200 ml 1295 ml 0 ml BRANDY ECHEVERRIA MD Dec 06, 2018 11:04
--- NOTE | 2018-12-06 11:27 | RAD ---
CT of the chest without contrast, 12/06/2018: HISTORY: Left lung mass Noncontrast scans were obtained as requested and compared to a study from 02/07/2015. There is mild calcific plaquing of the thoracic aorta without evidence of aneurysm. Moderate coronary artery calcifications are present. There is moderate generalized cardiomegaly. A large hiatal hernia is present. No mediastinal adenopathy is seen. There appear to be surgical clips in the lower neck on the left. There is a small amount of bilateral pleural fluid. On the left there is extension into the oblique fissure. The amount of left-sided pleural fluid is similar to that seen on the previous study. The right pleural effusion has increased in size since the previous exam. Evaluation of the lung parenchyma is partially compromised by patient respiratory motion artifact. There are scattered linear parenchymal scars. There is mild basilar atelectasis worse on the right. There is mild interlobular septal thickening, best seen in the right upper chest. This probably reflects low-grade edema. No pulmonary mass is seen. The visualized portions of the upper abdomen demonstrate a 14 mm calcified splenic artery aneurysm which has shown no definite change. There are incompletely visualized calcific densities in the gallbladder fossa region suggesting gallbladder wall calcification and/or gallstones. Moderate scattered degenerative changes are present in the spine. IMPRESSION: 1. Moderate cardiomegaly with calcific plaquing of the aorta and coronary arteries. 2. Small ongoing bilateral pleural effusions likely due to chronic congestive heart failure. 3. Large hiatal hernia. 4. Incompletely visualized gallbladder calcifications. 5. Small calcified splenic artery aneurysm. PQRS Compliance Statement: One or more of the following individualized dose reduction techniques were utilized for this examination: 1. Automated exposure control 2. Adjustment of the mA and/or kV according to patient size 3. Use of iterative reconstruction technique
[2018-12-06] MEDS ORDERED: NEOMY/BACITR/POLYMYXIN OINT PACKET. TP PRN (13:15)
--- NOTE | 2018-12-06 13:46 | NUR ---
SS following up with discharge planning. SS attempted to meet with pt but pt was sleeping in chair. SS was unable to arouse. SS contacted pt's son to discuss home. Pt's son reported that he provided pt's care at home but pt often refuses care or is non-compliant. Pt's son reported that pt likes to sit in her chair most of the day and will not get up to let the dogs out or get herself a drink. He reported that he attempts to bath pt several times a week and a lot of times pt refuses. He reported that he has also made pt appointments at the [facility] and with the pyrometer operator and often times pt refuses to get out of her chair. Pt's son reported that he is agreeable to pt needing therapy and rehabilitation services but is concerned that pt will not be compliant. Pt's son reported that during pt's last admission pt refused correction unit and home healthcare services. Pt's son reported that he would continue to care for his mother as long as she needs it and requested a pyrometer operator look at her feet and that she be bathed while at the hospital. Pt's RN notified.
--- NOTE | 2018-12-06 14:47 | PDOC ---
Subjective: Subjective: No complaints, feels great. Objective: Objective: No bleeding per RN. Son to be here later to talk w/ SW. Orders to advance diet yesterday - not done. Vital Signs: Vital Signs Date Time Temp Pulse Resp B/P (MAP) Pulse Ox O2 Delivery O2 Flow Rate FiO2 12/06/18 11:00 97.7 73 18 136/63 (87) 100 Room Air 97.7 Labs: Laboratory Tests Test 12/05/18 19:35 12/06/18 07:23 Hemoglobin 8.2 g/dL 7.4 g/dL Hematocrit 26.1 % 23.0 % White Blood Count 7.6 x10^3/uL Red Blood Count 3.41 x10^6/uL Mean Corpuscular Volume 67 fL Mean Corpuscular Hemoglobin 22 pg Mean Corpuscular Hemoglobin Concent 32 g/dL Red Cell Distribution Width 27.8 % Platelet Count 198 x10^3/uL Imaging: Chest CT IMPRESSION: 1. Moderate cardiomegaly with calcific plaquing of the aorta and coronary arteries. 2. Small ongoing bilateral pleural effusions likely due to chronic congestive heart failure. 3. Large hiatal hernia. 4. Incompletely visualized gallbladder calcifications. 5. Small calcified splenic artery aneurysm. PE: GEN: NAD, eating broth with enthusiasm LUNGS: room air HEART: RRR ABD: S/ND/NT NEURO/PSYCH: probably confused but cheerful A/P: Profound anemia, +fecal occult - improved - h/o CARIE and suspected SB AVMs, she is not interested in scopes Hiatal hernia, porcelain GB Dementia -- Continue PPI and iron - await son's input - poor candidate for endoscopy. PORTILLO BOO Dec 06, 2018 14:47
[2018-12-06] MEDS: ASCORBIC ACID 500 MG TABLET PO SCH (19:08)
[2018-12-06] MEDS: CYANOCOBALAMIN (VITAMIN B-12) 1,000 MCG/ML VIAL IM SCH (19:09)
[2018-12-06] MEDS: MULTIVITAMIN with MINERAL TABLET. PO SCH (19:09)
[2018-12-06] MEDS: LACTOBACILLUS RHAMNOSUS GG 1 CAPSULE. PO SCH (20:17)
[2018-12-06] MEDS: cefTRIAXone IV Push 1 GM VIAL. IVP SCH (20:17)
--- NOTE | 2018-12-06 20:21 | CONS ---
DATE OF CONSULTATION: INITIAL REVIEW OF RECORD: This is an elderly female who was admitted with chest pain. Past history of anemia, osteopenia, and pneumonia. She had multiple complaints on admission including cellulitis of her right leg; osteoarthritis, left ; hypokalemia; hypomagnesemia; pneumonia, severe anemia, chest pain, and insect bites. MEDICATIONS: Reviewed. ALLERGIES: No known drug allergies. PHYSICAL EXAMINATION: EXTREMITIES: The patient has elongated mycotic nails of all digits. There are sarai's horn in presentation and very severe and chronic in presentation bilateral. Decreased turgor, absence of hair growth. VASCULAR: Pedal pulses are diminished. Absent posterior tibial and dorsalis pedis with increased capillary filling time. Absence of hair growth, coolness distal to the toes versus proximal. MUSCULOSKELETAL: No significant bunion or hammertoes that are contributory or problems today. NEUROLOGIC: The patient appears to have normal sensorium, respond to sharp stimulation appropriately. ASSESSMENT: 1. Evidence of diminished vascularity of both lower extremities. 2. Severe chronic onychomycosis, onychocryptosis, onycholysis of all 10 toenails. 3. Multiple medical problems. PLAN: Debridement of all mycotic nails performed extensively. Small hemorrhage on second toe, left foot. I gave a verbal order for a Neosporin and Band-Aid to be applied. Follow up in the office will be appropriate in 3-4 months. ELADIO MCCALL DPM DR: PAULA/jen JOB#: [id number] / [id number]
[2018-12-07 03:55] VITALS: BP 133/78
[2018-12-07 04:52] LABS: HEMATOCRIT 24.2 % (36.0-47.0); HEMOGLOBIN 7.6 g/dL (12.0-15.5)
[2018-12-07 07:00] VITALS: BP 156/69
[2018-12-07] MEDS: MULTIVITAMIN with MINERAL TABLET. PO SCH (08:18)
[2018-12-07] MEDS: PANTOPRAZOLE 40 MG TABLET.DR. PO SCH (08:18)
[2018-12-07] MEDS: DIPHENHYDRAMINE/ZINC ACETATE 2%/0.1% TOPICAL CREAM 28GM TUBE. TP SCH (08:18)
[2018-12-07] MEDS: ASCORBIC ACID 500 MG TABLET PO SCH (08:18)
[2018-12-07] MEDS: LACTOBACILLUS RHAMNOSUS GG 1 CAPSULE. PO SCH (08:18)
[2018-12-07] MEDS: CYANOCOBALAMIN (VITAMIN B-12) 1,000 MCG/ML VIAL IM SCH (08:18)
[2018-12-07] MEDS: FERROUS SULFATE 325 MG TABLET. PO SCH (08:18)
[2018-12-07] MEDS ORDERED: POLYETHYLENE GLYCOL 3350 17 GM PACKET. PO PRN (09:30)
--- NOTE | 2018-12-07 09:31 | PDOC ---
Subjective: Subjective: Says she feels fine and is going home today. Says her son doesn't want her to drive anymore. Objective: Objective: D/w RN - probably will DC to home, son wasn't able to come last night. No bleeding. Vital Signs: Vital Signs Date Time Temp Pulse Resp B/P (MAP) Pulse Ox O2 Delivery O2 Flow Rate FiO2 12/07/18 07:40 Room Air 12/07/18 07:00 98.0 87 16 156/69 (98) 97 98.0 Labs: Laboratory Tests Test 12/07/18 03:50 Hemoglobin 7.6 g/dL Hematocrit 24.2 % Mean Corpuscular Hemoglobin Concent 31 g/dL PE: GEN: NAD, eating breakfast, smiling LUNGS: room air HEART: RRR ABD: S/ND/NT NEURO/PSYCH: cheerful, forgetful A/P: Anemia, +fecal occult - improved - CARIE, borderline low B12 - suspected SB AVMs Dementia -- When discharged, please send w/ iron, B12, PPI, and Miralax. PORTILLO BARNARD Dec 07, 2018 09:31
[2018-12-07] MEDS ORDERED: ASCO500T2 PO (09:42)
[2018-12-07] MEDS ORDERED: MULT1TAB90 PO (09:42)
[2018-12-07] MEDS ORDERED: Pantoprazole PO (09:42)
--- NOTE | 2018-12-07 09:43 | SNU/HH DC ---
DISCHARGE ORDERS DISCHARGE INFORMATION: DISCHARGE DATE: Dec 07, 2018 FINAL DIAGNOSIS Problems Medical Problems: (1) Chest pain Status: Acute (2) Hypokalemia Status: Acute (3) Hypomagnesemia Status: Acute (4) Pneumonia Status: Acute (5) Severe anemia Status: Acute CONDITION ON DISCHARGE: Stable CODE STATUS: Code Status: Full SENIOR LIVING: SNF STAY <30 DAYS: Yes HOSPICE: HOSPICE: No HOSPICE EVAL & TREAT: No LTAC: ADMIT TO LTAC: No POST DISCHARGE ORDERS: ACTIVITY ORDERS: Activity as tolerated CHECKS AFTER DISCHARGE: CHECKS AFTER DISCHARGE: Check blood press - daily FOLLOW-UP: PHYSICIAN FOLLOW-UP: she came in [facility], needs cbc weekly, did get Blood transfused 3 prbc TREATMENT/EQUIPMENT ORDERS: Physical Therapy For: Evalulation/Treatment Occupational Therapy For: Evaluation/Treatment DISCHARGE MEDICATIONS: Home Meds Active Scripts Multivits,Ca,Minerals/Iron/Fa (THERA-M TABLET) 1 Each Tablet, 1 TAB PO DAILY for mvi, #60 TAB Prov:BRANDY ECHEVERRIA MD 12/07/18 Ascorbic Acid (VITAMIN C) 500 Mg Tablet, 500 MG PO DAILY for mvi, #60 TAB Prov:BRANDY ECHEVERRIA MD 12/07/18 [Pantoprazole] [address] Miller Conflict Check, 40 MG PO DAILYAC for gerd, lucina, #60 Prov:BRANDY ECHEVERRIA MD 12/07/18 Ferrous Sulfate (FERROUS SULFATE) 325 Mg Tablet, 1 TAB PO BID, #60 TAB 3 Refills Prov:JESSE SOTELO MD 02/12/15 BRANDY ECHEVERRIA MD Dec 07, 2018 09:43
--- NOTE | 2018-12-07 10:00 | SNU/HH DC ---
DISCHARGE WITH HOME HEALTH DISCHARGE INFORMATION: Discharge Date: Dec 07, 2018 Final Diagnosis: Problems Medical Problems: (1) Chest pain Status: Acute (2) Hypokalemia Status: Acute (3) Hypomagnesemia Status: Acute (4) Pneumonia Status: Acute (5) Severe anemia Status: Acute Condition on Discharge: Stable CODE STATUS: Code Status: Full HOME HEALTH: Face to Face: I certify this patient is under my care and that I, or a nurse practitioner or physician's rehab care assistant working with me, had a face to face encounter that meets the physician face to face encounter requirements with this patient on []. RN For Eval/Treatment: Yes Physical Therapy For: Evalulation/Treatment Occupational Therapy For: Evaluation/Treatment Home Health Aide For: Self-care COMPLIANCE ENGINEER PRODUCTS For: Community Resources Pt Meets Homebound Status: Unsteady balance w/ amb, POST DISCHARGE ORDERS: Activity Instructions for Disc: Activity as tolerated CHECKS AFTER DISCHARGE: Checks after discharge: Check blood press - daily FOLLOW-UP: Follow up with: she came in [facility], needs cbc weekly, did get Blood transfused 3 prbc CERTIFICATION STATEMENT: Certification Statement: Certification Statement: Based on the above finding, I certify that this patient is confined to the home and needs intermittent chcf care, physical therapy and/or speech therapy, or continues to need occupational therapy.~ This patient is under my care, and I have initiated the establishment of the plan of care.~ This patient will be followed by myself or a community physician who will periodically review the plan of care. Home Meds Active Scripts Multivits,Ca,Minerals/Iron/Fa (THERA-M TABLET) 1 Each Tablet, 1 TAB PO DAILY for mvi, #60 TAB Prov:BRANDY ECHEVERRIA MD 12/07/18 Ascorbic Acid (VITAMIN C) 500 Mg Tablet, 500 MG PO DAILY for mvi, #60 TAB Prov:BRANDY ECHEVERRIA MD 12/07/18 [Pantoprazole] [address] Miller Conflict Check, 40 MG PO DAILYAC for gerd, lucina, #60 Prov:BRANDY ECHEVERRIA MD 12/07/18 Ferrous Sulfate (FERROUS SULFATE) 325 Mg Tablet, 1 TAB PO BID, #60 TAB 3 Refills Prov:JESSE SOTELO MD 02/12/15 BRANDY ECHEVERRIA MD Dec 07, 2018 10:00
--- NOTE | 2018-12-07 10:39 | NUR ---
SS following up with discharge planning. SS met with pt and discussed discharge planning and assisted unit. Pt declining assisted unit. Pt reported that she is discharging to home. SS discussed home healthcare options with her. Pt agreeable to home healthcare. SS phoned and faxed referral to [facility], ; fax [phone]. Pt's son and RN notified.
--- NOTE | 2018-12-07 10:43 | PDOC ---
PULMONARY PROGRESS NOTES Subjective PT NOR MORE SOA NO CHEST PAIN Vitals Vital Signs Date Time Temp Pulse Resp B/P (MAP) Pulse Ox O2 Delivery O2 Flow Rate FiO2 12/07/18 07:40 Room Air 12/07/18 07:00 98.0 87 16 156/69 (98) 97 98.0 ROS: No Nausea, No Chest Pain, No Abdominal Pain, No Increase Cough General: Alert, No acute distress Lungs: Crackles Cardiovascular: S1, S2 Abdomen: Soft Neuro Exam: Alert Extremities: No Edema Skin: Warm Labs Laboratory Tests Test 12/05/18 19:35 12/06/18 07:23 12/07/18 03:50 Hemoglobin 8.2 g/dL (12.0-15.5) 7.4 g/dL (12.0-15.5) 7.6 g/dL (12.0-15.5) Hematocrit 26.1 % (36.0-47.0) 23.0 % (36.0-47.0) 24.2 % (36.0-47.0) White Blood Count 7.6 x10^3/uL (4.0-11.0) Red Blood Count 3.41 x10^6/uL (3.50-5.40) Mean Corpuscular Volume 67 fL (79-100) Mean Corpuscular Hemoglobin 22 pg (25-35) Mean Corpuscular Hemoglobin Concent 32 g/dL (31-37) 31 g/dL (31-37) Red Cell Distribution Width 27.8 % (11.5-14.5) Platelet Count 198 x10^3/uL (140-400) Laboratory Tests Test 12/07/18 03:50 Hemoglobin 7.6 g/dL (12.0-15.5) Hematocrit 24.2 % (36.0-47.0) Mean Corpuscular Hemoglobin Concent 31 g/dL (31-37) Medications Active Scripts Medications Dose Route/Sig Max Daily Dose Days Date Category Ferrous Sulfate 325 Mg Tablet 1 Tab PO BID 02/12/15 Rx Impression . IMPRESSION: 1. Abnormal x-ray compatible with possible lung mass. 2. Acute blood loss anemia. 3. Cellulitis. 4. Hypokalemia. 5. Hypomagnesemia. 6. Possible pneumonia. IMPRESSION: 1. Moderate cardiomegaly with calcific plaquing of the aorta and coronary arteries. 2. Small ongoing bilateral pleural effusions likely due to chronic congestive heart failure. 3. Large hiatal hernia. 4. Incompletely visualized gallbladder calcifications. 5. Small calcified splenic artery aneurysm. Plan . OK OT D/C FLUID IN FISSURE ON LEFT DIURESE NO FUTHER WORK UP NEEDED NO SIGN OF CANCER ON CT CHEST WALDEMAR GARAY MD Dec 07, 2018 10:43
[2018-12-07 11:00] VITALS: BP 120/55
--- NOTE | 2018-12-07 11:38 | PDOC3 ---
Discharge Summary Visit Information Date of Admission: Dec 04, 2018 Date of Discharge: Dec 07, 2018 Admitting Diagnosis Comment: Acute precipitous drop in hemoglobin s/p 3 pRBC Encephalopathy? Could be her baseline Long toenails s/p clipping by podiatry Microcytic anemia Hypokalemia cortrected Rash back-bedbugs s/p ivermectin Lung mass, CT attached Final Diagnosis Problems Medical Problems: (1) Chest pain Status: Acute (2) Hypokalemia Status: Acute (3) Hypomagnesemia Status: Acute (4) Pneumonia Status: Acute (5) Severe anemia Status: Acute Brief Hospital Course Allergies Allergies Coded Allergies Type Severity Reaction Last Updated Verified No Known Drug Allergies 12/14/17 No Vital Signs Vital Signs Date Time Temp Pulse Resp B/P (MAP) Pulse Ox O2 Delivery O2 Flow Rate FiO2 12/07/18 11:00 97.5 71 16 120/55 (76) 97 Room Air 97.5 Lab Results Laboratory Tests Test 12/05/18 19:35 12/06/18 07:23 12/07/18 03:50 Hemoglobin 8.2 g/dL (12.0-15.5) 7.4 g/dL (12.0-15.5) 7.6 g/dL (12.0-15.5) Hematocrit 26.1 % (36.0-47.0) 23.0 % (36.0-47.0) 24.2 % (36.0-47.0) White Blood Count 7.6 x10^3/uL (4.0-11.0) Red Blood Count 3.41 x10^6/uL (3.50-5.40) Mean Corpuscular Volume 67 fL (79-100) Mean Corpuscular Hemoglobin 22 pg (25-35) Mean Corpuscular Hemoglobin Concent 32 g/dL (31-37) 31 g/dL (31-37) Red Cell Distribution Width 27.8 % (11.5-14.5) Platelet Count 198 x10^3/uL (140-400) Laboratory Tests Test 12/07/18 03:50 Hemoglobin 7.6 g/dL (12.0-15.5) Hematocrit 24.2 % (36.0-47.0) Mean Corpuscular Hemoglobin Concent 31 g/dL (31-37) Brief Hospital Course Ms. Bradley is a 88 old very poor historian with not preferable living conditions, poor overall hygiene, very long toenails on admission that was clipped by podiatry. In any mariola, came in because of severe anemia needing 3 packed RBCs. GI consulted, no scopes needed, hemodynamically stable. This is LUCINA based on iron panel. Continue ferrous sulfate which is supposed to be on, unsure if she is compliant with meds Hemoglobin 7.8 on discharge Recommended SNU but she just wants to go home health Also? Bedbugs I gave ivermectin, Benadryl, itching. Consults performed cardiology/pulmonary, GI Procedures performed none just imaging Discharge disposition home with home health Rx on chart Full code Discharge Information Condition at Discharge: Improved, Stable Disposition/Orders: D/C to Home w/ HH Scheduled Ascorbic Acid (Vitamin C) 500 Mg Tablet, 500 MG PO DAILY for mvi, #60 Prescribed by: BRANDY ECHEVERRIA on 12/07/18 0942 Ferrous Sulfate (Ferrous Sulfate) 325 Mg Tablet, 1 TAB PO BID, #60 Ref 3 Prescribed by: JESSE SOTELO on 02/12/15 1350 Last Action: Continued on 12/05/18 1318 by BRANDY ECHEVERRIA Multivits,Ca,Minerals/Iron/Fa (Thera-M Tablet) 1 Each Tablet, 1 TAB PO DAILY for mvi, #60 Prescribed by: BRANDY ECHEVERRIA on 12/07/18 0942 [Pantoprazole] 40 MG TABLET., 40 MG PO DAILYAC for gerd, lucina, #60 Prescribed by: BRANDY ECHEVERRIA on 12/07/18 0942 BRANDY ECHEVERRIA MD Dec 07, 2018 11:38
[2018-12-07 14:48] VITALS: BP 143/70
--- NOTE | 2018-12-07 15:37 | NUR ---
Discharge Note: JUAN SILVA Discharge instructions and discharge home medications reviewed with Patient and a copy given. All questions have been answered and understanding verbalized.
== END 2018-12-07 15:19 | disposition home health service (06) | DRG 871 ==
LOC: ER 17:13 → 2 SOUTH 19:25
PROVIDERS: ADMIT Internal Medicine; ATTEND Internal Medicine
PROC: 30233N1 Transfusion of Nonautologous Red Blood Cells into Peripheral Vein, Percutaneous Approach (ICD-10-PCS; 2018-12-04)
PROC: 0HBRXZZ Excision of Toe Nail, External Approach (ICD-10-PCS; principal; 2018-12-06)
PROC: 0HBRXZZ Excision of Toe Nail, External Approach (ICD-10-PCS; 2018-12-06)
PROC: 0HBRXZZ Excision of Toe Nail, External Approach (ICD-10-PCS; 2018-12-06)
PROC: 0HBRXZZ Excision of Toe Nail, External Approach (ICD-10-PCS; 2018-12-06)
PROC: 0HBRXZZ Excision of Toe Nail, External Approach (ICD-10-PCS; 2018-12-06)
PROC: 0HBRXZZ Excision of Toe Nail, External Approach (ICD-10-PCS; 2018-12-06)
PROC: 0HBRXZZ Excision of Toe Nail, External Approach (ICD-10-PCS; 2018-12-06)
PROC: 0HBRXZZ Excision of Toe Nail, External Approach (ICD-10-PCS; 2018-12-06)
PROC: 0HBRXZZ Excision of Toe Nail, External Approach (ICD-10-PCS; 2018-12-06)
PROC: 0HBRXZZ Excision of Toe Nail, External Approach (ICD-10-PCS; 2018-12-06)
DX: A41.9 Sepsis, unspecified organism (principal); J18.9 Pneumonia, unspecified organism; D62 Acute posthemorrhagic anemia; L03.90 Cellulitis, unspecified; G93.40 Encephalopathy, unspecified; M19.032 Primary osteoarthritis, left wrist; W57.XXXA Bitten or stung by nonvenomous insect and other nonvenomous arthropods, initial encounter; M85.80 Other specified disorders of bone density and structure, unspecified site; E83.42 Hypomagnesemia; E87.6 Hypokalemia; K57.30 Diverticulosis of large intestine without perforation or abscess without bleeding; K44.9 Diaphragmatic hernia without obstruction or gangrene; L60.1 Onycholysis; L60.0 Ingrowing nail; B35.1 Tinea unguium; K82.8 Other specified diseases of gallbladder; I72.8 Aneurysm of other specified arteries; F03.90 Unspecified dementia, unspecified severity, without behavioral disturbance, psychotic disturbance, mood disturbance, and anxiety; I25.10 Atherosclerotic heart disease of native coronary artery without angina pectoris; I27.20 Pulmonary hypertension, unspecified; I48.91 Unspecified atrial fibrillation; K21.9 Gastro-esophageal reflux disease without esophagitis; Z82.49 Family history of ischemic heart disease and other diseases of the circulatory system
CPT/HCPCS: 36415; 71045; 71250; 80048; 80053; 81001; 82274; 82550; 82607; 83540; 83550; 83605; 83690; 83735; 83880; 84439; 84443; 84481; 84484; 85007; 85014; 85018; 85025; 85027; 85045; 85610; 85730; 86850; 86900; 86901; 86920; 87040; 87045; 93005; 96361; 96365; 96368; 96375; C9113; J0696; J2543; J3420; J3475; J7030; P9016; 97116; 97535; 99291-25